=== PATIENT | female | born 1950 | race Caucasian/White ===

== ENCOUNTER 2020-05-13 05:54 | Outpatient (REF) | payer MEDICARE, SELFPAY ==
[2020-05-13 07:22] LABS: Cholesterol 216 mg/dL; HDL Cholesterol 71 mg/dL; LDL Cholesterol Calculated 127 mg/dl; Triglycerides 94 mg/dL
== END 2020-05-13 05:55 | disposition home or self-care (01) ==
LOC: HO.LAB 05:54
PROVIDERS: PCP Internal Medicine; Visit Provider Internal Medicine
DX: E78.5 Hyperlipidemia, unspecified (principal)
CPT/HCPCS: 80061

== ENCOUNTER 2020-10-21 05:57 | Outpatient (REF) | payer MEDICARE, SELFPAY ==
[2020-10-21 07:26] LABS: Alanine Aminotransferase 19 U/L (0-31); Albumin Level 3.9 g/dL (3.5-5.0); Alkaline Phosphatase 52 U/L (39-117); Anion Gap 14 (12-20); Aspartate Amino Transferase 18 U/L (5-31); Bilirubin Total 0.5 mg/dL (0.0-1.0); Blood Urea Nitrogen 26 mg/dL (9-16); Carbon Dioxide 24 mmol/L (22-29); Chloride 110 mmol/L (96-108); Cholesterol 221 mg/dL; Estimated Glomerular Filt Rate 38; Glucose Fasting 99 mg/dL (60-99); HDL Cholesterol 60 mg/dL; LDL Cholesterol Calculated 136 mg/dl; Potassium 4.7 mmol/L (3.3-5.1); Sodium 143 mmol/L (135-145); Triglycerides 128 mg/dL
== END 2020-10-21 05:58 | disposition home or self-care (01) ==
LOC: HO.LAB 05:57
PROVIDERS: PCP Internal Medicine; Visit Provider Internal Medicine
DX: E11.9 Type 2 diabetes mellitus without complications (principal)
CPT/HCPCS: 36415; 80053; 80061

== ENCOUNTER 2021-01-27 06:08 | Outpatient (REF) | payer MEDICARE, SELFPAY ==
[2021-01-27 07:29] LABS: Cholesterol 217 mg/dL; HDL Cholesterol 67 mg/dL; LDL Cholesterol Calculated 133 mg/dl; Triglycerides 85 mg/dL
== END 2021-01-27 06:09 | disposition home or self-care (01) ==
LOC: HO.LAB 06:08
PROVIDERS: PCP Internal Medicine; Visit Provider Internal Medicine
DX: E11.9 Type 2 diabetes mellitus without complications (principal)
CPT/HCPCS: 36415; 80061

== ENCOUNTER 2021-03-26 07:59 | Outpatient (REF) | payer MEDICARE, SELFPAY ==
--- NOTE | ~2021-03-26 | MM_ITS ---
EXAMINATION: MM SCREENING DIGITAL BREAST TOMOSYNTHESIS, BILATERAL CLINICAL INFORMATION: Screening. Asymptomatic. The lifetime risk of breast cancer based on the Tyrer-Cuzick Model is 3%. COMPARISON: Mammography: 03/15/2019, 02/27/2018, 10/25/2016 TECHNIQUE: Digital breast tomosynthesis is performed in both the craniocaudal and mediolateral oblique views along with computer-aided detection (CAD). Synthesized 2D images are generated from the tomosynthesis. FINDINGS: There are scattered areas of fibroglandular density (ACR BI-RADS breast composition Category b). There are no significant masses, abnormal calcifications, or other abnormalities. Parenchymal pattern is similar to prior studies. No significant changes. MM/MM tomosynthesis screening BI IMPRESSION: No mammographic evidence of malignancy. ASSESSMENT: BI-RADS 1: Negative RECOMMENDATION: Routine annual mammography screening. This patient's information was entered into a reminder system with a target due date for their next mammogram.
--- NOTE | ~2021-03-26 | MM_ITS ---
EXAMINATION: BONE DENSITOMETRY CLINICAL INDICATION: Asymptomatic menopausal state. COMPARISON: None (current study represents initial baseline exam). TECHNIQUE: Using a [employer]App DXA System (software version: 13.1) manufactured by [employer], dual-energy x-ray absorptiometry was performed of the spine and left hip. The images are of good technical quality. Summary results are attached. FINDINGS: AP SPINE L1-L4: BMD 1.399 g/cm2, Z-score 2.7, T-score 1.8, normal. LEFT FEMUR, NECK: BMD 0.865 g/cm2, Z-score 0.0, T-score -1.2, osteopenia. LEFT FEMUR, TOTAL: BMD 0.893 g/cm2, Z-score 0.0, T-score -0.9, normal. IDENTIFIED RISK FACTORS: Menopause. HISTORY OF FRACTURE: None listed. MEDICATIONS: None listed. MM/XR DEXA axial skeleton IMPRESSION: 1. DIAGNOSIS: Osteopenia based on the lowest T-score value of -1.2 in the femoral neck applying World Health Organization criteria. 2. 10-YEAR FRACTURE RISK PREDICTION, FRAX: Major osteoporotic fracture (clinical spine, forearm, hip or shoulder) 9.5%. Hip fracture 1.3%. 3. Treatment Recommendations: NOF guidelines recommend consideration for treatment in postmenopausal women and men age 50 and older presenting with the following: -A hip or vertebral (clinical or morphometric) fracture. -T-score less than or equal to -2.5 at the femoral neck or spine after appropriate evaluation to exclude secondary causes. -Low bone mass at the hip or spine and a 10-year fracture probability by FRAX of greater than or equal to 3% for hip fracture or greater than or equal to 20% for major osteoporotic fracture based on the [place] adapted WHO algorithm. 4. Other Recommendations: All treatment decisions require clinical judgment and consideration of individual patient factors, including patient preferences, comorbidities, previous drug use, risk factors not captured in the FRAX model (e.g. frailty, falls, vitamin D deficiency, increased bone turnover, interval significant decline in bone density) and possible under or overestimation of fracture risk by FRAX. Additional medical evaluation for secondary cause of low bone mineral density may be appropriate. FUTURE SCAN RECOMMENDATION: People with diagnosed cases of osteoporosis or at high risk for fracture should have regular bone mineral density tests. For patients eligible for Medicare, routine testing is allowed once every 2 years. The testing frequency can be increased to one year for patients who have rapidly progressing disease, those who are receiving or discontinuing medical therapy to restore bone mass, or have additional risk factors.
== END 2021-03-26 08:00 | disposition home or self-care (01) ==
LOC: HO.MAMMO 07:59
PROVIDERS: PCP Internal Medicine; Visit Provider Nurse Practitioner Family
DX: Z12.31 Encounter for screening mammogram for malignant neoplasm of breast (principal); Z13.820 Encounter for screening for osteoporosis; M85.80 Other specified disorders of bone density and structure, unspecified site; Z78.0 Asymptomatic menopausal state
CPT/HCPCS: 77063; 77067; 77080

== ENCOUNTER 2021-04-21 05:56 | Outpatient (REF) | payer MEDICARE, SELFPAY ==
[2021-04-21 07:39] LABS: Cholesterol 216 mg/dL; HDL Cholesterol 69 mg/dL; LDL Cholesterol Calculated 129 mg/dl; Triglycerides 90 mg/dL
== END 2021-04-21 05:57 | disposition home or self-care (01) ==
LOC: HO.LAB 05:56
PROVIDERS: PCP Internal Medicine; Visit Provider Nurse Practitioner Family
DX: E78.5 Hyperlipidemia, unspecified (principal)
CPT/HCPCS: 36415; 80061

== ENCOUNTER 2021-05-01 11:52 | Outpatient (REF) | payer MEDICARE, SELFPAY | END 2021-05-01 11:53 | disposition home or self-care (01) | LOC: HO.LNP 11:52 | PROVIDERS: Visit Provider Physician Assistant Medical | DX: N39.0 Urinary tract infection, site not specified (principal) | CPT/HCPCS: 87086 ==

== ENCOUNTER 2021-05-10 05:45 | Emergency (ER) | payer MEDICARE, SELFPAY ==
--- NOTE | ~2021-05-10 | CT_ITS ---
EXAMINATION: CT ABDOMEN AND PELVIS WITHOUT CONTRAST CLINICAL INFORMATION: 71-year-old female with flank pain COMPARISON: None TECHNIQUE: Multidetector volumetric imaging was performed from the superior aspect of the liver through the pubic symphysis. Sagittal and coronal reformatted images were obtained on the technologist's workstation. This CT examination was performed using dose optimization techniques as appropriate, variously including the following: *Automated exposure control *Adjustment of mA and/or kV according to patient size (this includes techniques or standardized protocols for targeted exams where dose is matched to indication/reason for exam; i.e. extremities or head) *Use of iterative reconstruction technique DLP: 644 mGy-cm FINDINGS: Visualized lung bases demonstrate prominent emphysematous changes with likely superimposed interstitial lung disease. The liver is normal in size but demonstrates diffusely decreased attenuation. The gallbladder is normal in appearance. The pancreas, spleen and adrenal glands are unremarkable. The right kidney appears mildly atrophic compared to the left kidney. No renal calculi or hydronephrosis appreciated bilaterally. Small to moderate sized hiatal hernia. Normal caliber loops of small and large bowel. Moderate colonic diverticulosis without CT evidence to suggest active diverticulitis. Normal appendix. Normal caliber abdominal aorta which demonstrates moderate atherosclerotic disease. No retroperitoneal lymphadenopathy. The bladder is normal in appearance. Unremarkable CT appearance of the uterus. No gross free pelvic fluid. No inguinal lymphadenopathy. Moderate diffuse degenerative changes of the spine. CT/CT abdomen pelvis wo con IMPRESSION: 1. No renal calculi or hydronephrosis of either kidney. 2. Diffusely decreased liver attenuation suggesting hepatic steatosis. Correlation with liver enzymes recommended. 3. Small to moderate sized hiatal hernia. 4. Colonic diverticulosis. 5. Lung bases demonstrate emphysematous changes with likely superimposed interstitial lung disease.
[2021-05-10 05:54] VITALS: BP 143/70; PULSE 99; RESP 18; TEMP 36.4; O2SAT 99; BMI 28.0
--- NOTE | 2021-05-10 06:19 | ED.FEMALEGU ---
HPI - Female Genitourinary General Chief complaint: Urogenital-Female Stated complaint: bladder pain Time Seen by Provider: 05/10/21 06:19 Source: patient Mode of arrival: ambulatory History of Present Illness HPI Narrative: This is a 71-year-old female who was evaluated last week for urinary symptoms and treated at that time with cephalexin and patient states she completed the entire course. She states that although the burning and itching decreased she still has urinary frequency with ?bladder discomfort?. She denies any nausea, vomiting, fever, chills. Patient does states that the burning appears to be at the end of urination and that she did have associated itching which has remained although decreased. Related Data Home Medications Medication Instructions Recorded Confirmed esomeprazole magnesium 20 mg 20 mg PO DAILY 05/28/20 05/08/21 capsule,delayed release (Nexium 24HR) Previous Rx's Medication Instructions Recorded fenofibrate 54 mg tablet 54 mg PO DAILY #90 tab 11/25/20 lisinopril 20 mg tablet 20 mg PO DAILY #90 tab 11/25/20 cephalexin 500 mg capsule 500 mg PO BID 7 Days #14 cap 05/01/21 Allergies Allergy/AdvReac Type Severity Reaction Status Date / Time Ttyvjcc-LVH-KzG Reductase Allergy Unknown myalgia Verified 05/08/21 08:18 Inhibitor [Lkhunfc-Dmj-Ori Reductase Inhibitor] Review of Systems Review of Systems: Pertinent positives and negatives as stated in HPI 10 point review of systems is otherwise negative. [facility] Past Medical History Source: nursing notes reviewed Medical History Hyperlipidemia Hypertension Post-menopausal Surgical History History of inguinal hernia repair Family History Family History Father CAD (coronary artery disease) Past heart attack Substance use disorder Mother Diabetes Sister Mitral valve prolapse Substance use disorder Social History Social History Alcohol intake: never Patient Tobacco Use Status: Former Tobacco user Quit Date: 1990 Use of substances other than those prescribed or required for medical reasons: No Advance Directives: No Advance Directives Information Provided: Yes Physical Exam Vital Signs: Vital Signs: Last Vital Signs Temp 97.6 F 05/10/21 05:54 Pulse 97 05/10/21 06:24 Resp 16 05/10/21 06:24 BP 145/67 H 05/10/21 06:24 Pulse Ox 97 05/10/21 06:24 Body Mass Index 28.0 VITAL SIGNS: Reviewed. GENERAL: Well developed, well nourished, in no acute distress. HEAD: Normocephalic/atraumatic EYES: PERRLA, EOMI OROPHARYNX: no oral lesions noted, posterior pharynx clear LUNGS: Normal breath sounds. SpO2<99> CARDIOVASCULAR: Regular rate and rhythm without noted murmurs ABDOMEN: Soft, non-tender, non-distended with bowel sounds, no CVA tenderness NEUROLOGIC: Alert and oriented x 4. Course Course Course Narrative: 71-year-old female with history and clinical presentation suggestive vaginal candidiasis, and less likely pyelonephritis/renal colic. Patient declined combination analgesics as she states the pain is ?not that bad?. Signed out to Dr Estrada: f/u UA, CT scan Discharge Plan Discharge Clinical Impression: Dysuria Patient Disposition: Home, Self-Care Instructions: Dysuria (ED) Additional Instructions: Follow-up with your primary care provider on Tuesday morning. Return to the ER for acute worsening of symptoms. Prescriptions: No Action fenofibrate 54 mg tablet 54 mg PO DAILY Qty: 90 RF: 8 lisinopril 20 mg tablet 20 mg PO DAILY Qty: 90 RF: 8 esomeprazole magnesium [Nexium 24HR] 20 mg capsule,delayed release(DR/EC) 20 mg PO DAILY RF: 0 cephalexin 500 mg capsule 500 mg PO BID 7 Days Qty: 14 RF: 0 Referrals: Tate Victor MD [Primary Care Provider] - 2 days
[2021-05-10 06:24] VITALS: BP 145/67; PULSE 97; RESP 16; O2SAT 97
[2021-05-10] MEDS: Fluconazole 150 MG TABLET PO (07:19)
[2021-05-10 07:23] LABS: Appearance Urine CLEAR; Color Urine YELLOW; Glucose Urine UA NEG (NEG); Leukocyte Esterase Urine NEG (NEG); Nitrite Urine NEG (NEG); Urine Blood NEG (NEG); Urine Ketones NEG (NEG); Urine Protein NEG (NEG-TRACE)
== END 2021-05-10 08:39 | disposition home or self-care (01) ==
PROVIDERS: Student in an Organized Health Care Education/Training Program; Emergency Provider Student in an Organized Health Care Education/Training Program; PCP Internal Medicine
DX: R30.0 Dysuria (principal); I10 Essential (primary) hypertension
CPT/HCPCS: 74176; 81003; 99284

== ENCOUNTER 2021-10-21 05:49 | Outpatient (REF) | payer MEDICARE, SELFPAY ==
[2021-10-21 06:14] LABS: MANUAL DIFF FLAG NO
[2021-10-21 07:36] LABS: Basophils Absolute Auto 0.1 X10*3/uL (0.0-0.2); Eosinophils Absolute Auto 0.1 X10*3/uL (0.0-0.4); Eosinophils Percent Auto 2.6 % (0-4); Hematocrit 43.1 % (37.0-47.0); Hemoglobin 13.9 g/dl (12.0-16.0); Imm Gran Abs Auto 0.01 X10*3/uL (0.00-0.03); Imm Gran Pct Auto 0.2 % (0.0-0.4); Lymphocytes Absolute Auto 2.3 X10*3/uL (1.2-4.9); Lymphocytes Percent Auto 44.7 % (20-40); Mean Corpuscular HGB Conc 32.3 g/dl (31.0-35.0); Mean Corpuscular Volume 99.3 fL (80.0-98.0); Monocytes Absolute Auto 0.5 X10*3/uL (0.1-1.2); Monocytes Percent Auto 9.1 % (2-11); Neutrophils Absolute Auto 2.2 x10*3/uL (2.0-8.3); Neutrophils Percent Auto 42.4 % (45-73); Platelet Count 195 X10*3/uL (160-400); Red Blood Count 4.34 X10*6/uL (4.20-5.50); Red Cell Distribution Width 12.9 % (11.0-16.0); White Blood Count 5.1 X10*3/uL (4.8-10.8)
[2021-10-21 08:06] LABS: Alanine Aminotransferase 19 U/L (0-31); Albumin Level 4.1 g/dL (3.5-5.0); Alkaline Phosphatase 56 U/L (39-117); Anion Gap 11 (12-20); Aspartate Amino Transferase 21 U/L (5-31); Bilirubin Total 0.5 mg/dL (0.0-1.0); Blood Urea Nitrogen 24 mg/dL (9-16); Calcium 9.8 mg/dL (8.4-10.2); Carbon Dioxide 26 mmol/L (22-29); Chloride 106 mmol/L (96-108); Cholesterol 236 mg/dL; Estimated Glomerular Filt Rate 33; Glucose Fasting 99 mg/dL (60-99); HDL Cholesterol 63 mg/dL; LDL Cholesterol Calculated 153 mg/dl; Potassium 5.1 mmol/L (3.3-5.1); Sodium 138 mmol/L (135-145); Total Protein 7.4 g/dL (6.5-8.0); Triglycerides 104 mg/dL
[2021-10-21 08:18] LABS: Thyroid Stimulating Hormone 6.72 uIU/mL (0.32-4.0)
== END 2021-10-21 05:50 | disposition home or self-care (01) ==
LOC: HO.LAB 05:49
PROVIDERS: PCP Internal Medicine; Visit Provider Internal Medicine
DX: Z00.00 Encounter for general adult medical examination without abnormal findings (principal); E11.9 Type 2 diabetes mellitus without complications; E03.9 Hypothyroidism, unspecified
CPT/HCPCS: 36415; 80053; 80061; 84443; 85025

== ENCOUNTER 2021-11-10 05:57 | Outpatient (REF) | payer MEDICARE, SELFPAY ==
[2021-11-10 08:14] LABS: Thyroid Stimulating Hormone 6.16 uIU/mL (0.32-4.0)
== END 2021-11-10 05:58 | disposition home or self-care (01) ==
LOC: HO.LAB 05:57
PROVIDERS: PCP Internal Medicine; Visit Provider Internal Medicine
DX: E03.9 Hypothyroidism, unspecified (principal)
CPT/HCPCS: 36415; 84443

== ENCOUNTER 2022-01-26 05:52 | Outpatient (REF) | payer MEDICARE, SELFPAY ==
[2022-01-26 08:08] LABS: Thyroid Stimulating Hormone 0.15 uIU/mL (0.32-4.0)
== END 2022-01-26 05:53 | disposition home or self-care (01) ==
LOC: HO.LAB 05:52
PROVIDERS: PCP Internal Medicine; Visit Provider Internal Medicine
DX: E03.9 Hypothyroidism, unspecified (principal)
CPT/HCPCS: 36415; 84443

== ENCOUNTER 2022-02-04 05:58 | Outpatient (REF) | payer MEDICARE, SELFPAY ==
--- NOTE | ~2022-02-04 | XR_ITS ---
EXAMINATION: XR CERVICAL SPINE CLINICAL INFORMATION: M54.2 - Cervicalgia COMPARISON: Cervical radiographs 01/19/2016 TECHNIQUE: Cervical spine is imaged in 4 views. FINDINGS: Vertebral bodies are normal in height and there is normal cervical lordosis. No vertebral compression, destructive process, or prevertebral soft tissue swelling. The odontoid appears intact. No cervical rib. Degenerative changes are similar to prior exam. There are degenerative changes between anterior arch C1 and the dens. There is again borderline retrolisthesis C3 on C4 with anterior and posterior spurring. Anterior spurring at C4-C5. There are prominent degenerative disc changes again noted at C5-C6 and C6-C7 with disc narrowing and anterior and posterior spurring. XR/XR cervical spine 2V IMPRESSION: -Prominent degenerative disc changes C5-C6 and C6-C7. -Borderline retrolisthesis C3-C4. -No vertebral compression or destructive process.
== END 2022-02-04 05:59 | disposition home or self-care (01) ==
LOC: HO.XRAY 05:58
PROVIDERS: PCP Internal Medicine; Visit Provider Internal Medicine
DX: M54.2 Cervicalgia (principal)
CPT/HCPCS: 72040

== ENCOUNTER 2022-03-31 07:36 | Outpatient (REF) | payer MEDICARE, SELFPAY ==
--- NOTE | ~2022-03-31 | MM_ITS ---
EXAMINATION: MM SCREENING DIGITAL BREAST TOMOSYNTHESIS, BILATERAL CLINICAL INFORMATION: Screening. Asymptomatic. The lifetime risk of breast cancer based on the Tyrer-Cuzick Model is 2%. COMPARISON: Mammography: 03/26/2021, 03/15/2019, 02/27/2018 TECHNIQUE: Digital breast tomosynthesis is performed in both the craniocaudal and mediolateral oblique views along with computer-aided detection (CAD). Synthesized 2D images are generated from the tomosynthesis. FINDINGS: There are scattered areas of fibroglandular density (ACR BI-RADS breast composition Category b). There are no significant masses, abnormal calcifications, or other abnormalities. No developing density or architectural abnormality. Parenchymal pattern is similar to prior studies. MM/MM tomosynthesis screening BI IMPRESSION: No mammographic evidence of malignancy. ASSESSMENT: BI-RADS 1: Negative RECOMMENDATION: Routine annual mammography screening. This patient's information was entered into a reminder system with a target due date for their next mammogram.
== END 2022-03-31 07:37 | disposition home or self-care (01) ==
LOC: HO.MAMMO 07:36
PROVIDERS: PCP Internal Medicine; Visit Provider Internal Medicine
DX: Z12.31 Encounter for screening mammogram for malignant neoplasm of breast (principal)
CPT/HCPCS: 77063; 77067

== ENCOUNTER 2022-05-11 05:55 | Outpatient (REF) | payer MEDICARE, SELFPAY ==
[2022-05-11 08:15] LABS: Cholesterol 216 mg/dL; HDL Cholesterol 68 mg/dL; LDL Cholesterol Calculated 128 mg/dl; Triglycerides 103 mg/dL
[2022-05-11 08:36] LABS: Thyroid Stimulating Hormone 0.25 uIU/mL (0.32-4.0)
== END 2022-05-11 05:56 | disposition home or self-care (01) ==
LOC: HO.LAB 05:55
PROVIDERS: PCP Internal Medicine; Visit Provider Internal Medicine
DX: E03.9 Hypothyroidism, unspecified (principal); E78.5 Hyperlipidemia, unspecified
CPT/HCPCS: 36415; 80061; 84443

== ENCOUNTER 2022-10-07 05:57 | Outpatient (REF) | payer MEDICARE, SELFPAY ==
[2022-10-07 08:03] LABS: Cholesterol 215 mg/dL; HDL Cholesterol 62 mg/dL; LDL Cholesterol Calculated 131 mg/dl; Triglycerides 110 mg/dL
[2022-10-07 09:11] LABS: Thyroid Stimulating Hormone 0.23 uIU/mL (0.32-4.0)
== END 2022-10-07 05:58 | disposition home or self-care (01) ==
LOC: HO.LAB 05:57
PROVIDERS: PCP Internal Medicine; Visit Provider Internal Medicine
DX: E78.5 Hyperlipidemia, unspecified (principal); E03.9 Hypothyroidism, unspecified
CPT/HCPCS: 36415; 80061; 84443

== ENCOUNTER 2022-10-27 11:34 | Outpatient (REF) | payer MEDICARE, SELFPAY ==
--- NOTE | ~2022-10-27 | US_ITS ---
EXAMINATION: US VENOUS ULTRASOUND WITH DOPPLER LOWER EXTREMITY, LEFT CLINICAL INFORMATION: Left leg edema. COMPARISON: None available. TECHNIQUE: Ultrasound of the deep veins is performed from the hip to the calf with compression sonography and color and pulse Doppler assessment. Spectral analysis with color-flow imaging is performed. FINDINGS: There is DVT involving the entire left lower extremity beginning in the peroneal veins and posterior tibial veins extending up through the popliteal vein and into the femoral vein and common femoral vein. The GSV is free of thrombus. The profunda femoris vein is free of thrombus. US/US venous duplex LE IMPRESSION: Extensive left lower extremity DVT as described above. This critical result was discussed with Dr. Tate Victor M.D. at 12:04 PM and it was ascertained that the content and urgency of the report was understood at the time of direct communication. Patient was sent directly to the emergency room.
== END 2022-10-27 11:35 | disposition home or self-care (01) ==
LOC: HO.US 11:34
PROVIDERS: PCP Internal Medicine; Visit Provider Internal Medicine
DX: R60.0 Localized edema (principal)
CPT/HCPCS: 93971

== ENCOUNTER 2022-10-27 12:12 | Emergency (ER) | payer MEDICARE, SELFPAY ==
[2022-10-27 12:49] VITALS: BP 182/86; PULSE 76; RESP 18; TEMP 36.9; O2SAT 98; BMI 26.4
[2022-10-27 12:52] LABS: MANUAL DIFF FLAG NO
[2022-10-27 12:55] LABS: Basophils Absolute Auto 0.1 X10*3/uL (0.0-0.2); Basophils Percent Auto 1.1 % (0-2); Eosinophils Absolute Auto 0.2 X10*3/uL (0.0-0.4); Eosinophils Percent Auto 2.7 % (0-4); Hematocrit 41.6 % (37.0-47.0); Hemoglobin 13.5 g/dl (12.0-16.0); Imm Gran Abs Auto 0.01 X10*3/uL (0.00-0.03); Imm Gran Pct Auto 0.2 % (0.0-0.4); Lymphocytes Absolute Auto 1.6 X10*3/uL (1.2-4.9); Lymphocytes Percent Auto 28.2 % (20-40); Mean Corpuscular HGB Conc 32.5 g/dl (31.0-35.0); Mean Corpuscular Hemoglobin 30.6 pg (27.0-33.0); Mean Corpuscular Volume 94.3 fL (80.0-98.0); Mean Platelet Volume 9.4 fL (9.4-12.3); Monocytes Absolute Auto 0.4 X10*3/uL (0.1-1.2); Monocytes Percent Auto 7.4 % (2-11); Neutrophils Absolute Auto 3.3 x10*3/uL (2.0-8.3); Neutrophils Percent Auto 60.4 % (45-73); Platelet Count 241 X10*3/uL (160-400); Red Blood Count 4.41 X10*6/uL (4.20-5.50); Red Cell Distribution Width 12.5 % (11.0-16.0); White Blood Count 5.5 X10*3/uL (4.8-10.8)
[2022-10-27 13:13] LABS: Alanine Aminotransferase 11 U/L (0-31); Albumin Level 3.8 g/dL (3.5-5.0); Alkaline Phosphatase 62 U/L (39-117); Anion Gap 15 (12-20); Aspartate Amino Transferase 16 U/L (5-31); Bilirubin Direct 0.2 mg/dL (0.0-0.5); Bilirubin Total 0.5 mg/dL (0.0-1.0); Blood Urea Nitrogen 21 mg/dL (9-16); Calcium 9.3 mg/dL (8.4-10.2); Carbon Dioxide 25 mmol/L (22-29); Chloride 105 mmol/L (96-108); Creatinine Clr Calc Pharmacy 44.9; Estimated Glomerular Filt Rate 43; Glucose Random 92 mg/dL (60-115); Magnesium 2.1 mg/dL (1.6-2.6); Sodium 140 mmol/L (135-145)
--- NOTE | 2022-10-27 13:24 | ED.GENADULT ---
HPI - General Adult General Chief complaint: General Medical Stated complaint: positive DVT Time Seen by Provider: 10/27/22 13:31 Source: patient Mode of arrival: ambulatory Limitations: no limitations History of Present Illness HPI narrative: 72 yo female presents to the ER for evaluation of left lower extremity swelling for the last 10 days. She saw her PCP today who ordered a left leg doppler which showed extensive LLE DVT. She was sent to the ER. She denies history of DVT or PE in the past. No history of hypercoagulation disorders. No recent long car trips or flights. She is fairly active at home. She denies any shortness of breath or chest pain. She is otherwise feeling well. She states when she walks the left leg feels tight. MD complaint: LLE swelling, +DVT Onset (ago): day(s) (10) Location: left and lower extremity Radiation: proximal Severity: moderate Quality: aching Pain Consistency: intermittent Relieving factors: rest Exacerbating factors: movement Associated symptoms: denies other symptoms Treatments prior to arrival: none Related Data Home Medications Medication Instructions Recorded Confirmed esomeprazole magnesium 20 mg 20 mg PO DAILY 05/28/20 10/27/22 capsule,delayed release (Nexium 24HR) Previous Rx's Medication Instructions Recorded fenofibrate 54 mg tablet 54 mg PO DAILY #90 tabs 02/05/22 lisinopril 20 mg tablet 20 mg PO DAILY #90 tabs 02/05/22 levothyroxine 75 mcg tablet 75 mcg PO DAILY #90 tabs 04/07/22 naproxen 500 mg tablet (Naprosyn) 500 mg PO BID PRN pain #60 tabs 04/27/22 apixaban 5 mg (74 tabs) tablets in 5 mg PO BID #74 ea 10/27/22 a dose pack Allergies Allergy/AdvReac Type Severity Reaction Status Date / Time Bwdjntp-LJG-VaQ Reductase Allergy Unknown myalgia Verified 10/27/22 10:50 Inhibitor [Mlfdtwf-Iqc-Qzd Reductase Inhibitor] Review of Systems Review of Systems: Yes all other systems are reviewed and are negative [facility] Past Medical History Medical History Hyperlipidemia Hypertension Post-menopausal Surgical History History of inguinal hernia repair Family History Family History Father CAD (coronary artery disease) Past heart attack Substance use disorder Mother Diabetes Sister Mitral valve prolapse Substance use disorder Social History Social History Housing: House Alcohol intake: never Patient Tobacco Use Status: Former Tobacco user Quit Date: 1990 e-Cigarette/Vaping Use: Never Used Second Hand Smoke Exposure: No Advance Directives: Yes Advance Directives Information Provided: No Advance Directives on File: No service: No Current occupational status: retired Cognitive needs: No Hearing needs: No Vision needs: Yes Physical Exam ED Vital Signs: Vital Signs - 24 hr 10/27/22 12:49 Temperature 98.4 F Pulse Rate 76 Respiratory Rate 18 Blood Pressure 182/86 H Pulse Oximetry 98 Oxygen Delivery Method Room Air BMI result Body Mass Index 26.4 Appearance: Alert. Oriented X3. No acute distress. HEENT: normal inspection CVS: Normal heart rate and rhythm. Pulses normal. Respiratory: No respiratory distress. Lungs CTAB Skin: Skin warm and dry. Normal skin color. Normal skin turgor. No rashes. Extremities: 2+ lower extremity edema of the left lower leg, mild calf tenderness. no proximal swelling. foot is warm and well perfused, 2+ DP/PD pulses Neuro: Oriented X 3. No motor deficit. No sensory deficit. Steady gait Course Course Course Narrative: 70 y/o female presenting from her PCP office for +LE doppler. She has had asymmetrical LLE edema. LE doppler from today: DVT involving the entire left lower extremity beginning in the peroneal veins and posterior tibial veins extending up through the popliteal vein and into the femoral vein and common femoral vein. The GSV is free of thrombus. The profunda femoris vein is free of thrombus. Medications Administered Discontinued Medications Generic Name Dose Route Start Last Admin Trade Name Freq PRN Reason Stop Dose Admin Apixaban 10 mg 10/27/22 13:38 10/27/22 13:44 Apixaban 5 Mg Tablet PO 10/27/22 13:39 10 mg ONCE ONE Administration Medical Decision Making Medical Decision Making [facility] Narrative: 72 yo female presenting with +LLE DVT. Had slightly abnormal renal function on last years labs so repeats were done today showing normal renal function. No need for dose adjustments. Will start Eliquis - dose pack ordered and explained to the patient. Patient counseled on diagnosis, management and return precautions. She is stable for d/c home on Eliquis with follow up with her PCP. She agrees with plan. patient given pharmacy discount cards. 1st dose of Eliquis given here. Differential Diagnosis Differential Diagnoses: The differential diagnosis associated with the presentation includes LE DVT, no clinical symptoms of PE, no evidence of arterial clot Lab Data MDM Lab Attestation statement: I reviewed the patient's lab results. normal renal function, platelets and coags. 10/27/22 12:44 10/27/22 12:44 Labs: Lab Results 10/27/22 10/27/22 10/27/22 Range/Units 12:44 12:44 12:44 WBC 5.5 (4.8-10.8) X10*3/uL RBC 4.41 (4.20-5.50) X10*6/uL Hgb 13.5 (12.0-16.0) g/dl Hct 41.6 (37.0-47.0) % MCV 94.3 (80.0-98.0) fL MCH 30.6 (27.0-33.0) pg MCHC 32.5 (31.0-35.0) g/dl RDW 12.5 (11.0-16.0) % Plt Count 241 (160-400) X10*3/uL MPV 9.4 (9.4-12.3) fL Immature Gran % (Auto) 0.2 (0.0-0.4) % Neut % (Auto) 60.4 (45-73) % Lymph % (Auto) 28.2 (20-40) % [place] % (Auto) 7.4 (2-11) % Eos % (Auto) 2.7 (0-4) % Baso % (Auto) 1.1 (0-2) % Lymph # (Auto) 1.6 (1.2-4.9) X10*3/uL [place] # (Auto) 0.4 (0.1-1.2) X10*3/uL Eos # (Auto) 0.2 (0.0-0.4) X10*3/uL Baso # (Auto) 0.1 (0.0-0.2) X10*3/uL Abs Immat Gran (auto) 0.01 (0.00-0.03) X10*3/uL Absolute Neuts (auto) 3.3 (2.0-8.3) x10*3/uL Absolute Nucleated RBC 0.000 (0.0-0.012) X10*3/uL Nucleated RBC % (auto) 0.0 (0.0-0.2) /100WBC PT 11.0 (10.0-13.1) SEC INR 1.0 (0.9-1.1) APTT 29.0 (26.0-36.4) SEC Sodium 140 (135-145) mmol/L Potassium 5.0 (3.3-5.1) mmol/L Chloride 105 (96-108) mmol/L Carbon Dioxide 25 (22-29) mmol/L Anion Gap 15 (12-20) BUN 21 H (9-16) mg/dL Creatinine 1.23 (0.5-1.4) mg/dL Estim Creat Clear Calc 44.9 Estimated GFR 43 Random Glucose 92 (60-115) mg/dL Calcium 9.3 (8.4-10.2) mg/dL Magnesium 2.1 (1.6-2.6) mg/dL Total Bilirubin 0.5 (0.0-1.0) mg/dL Direct Bilirubin 0.2 (0.0-0.5) mg/dL AST 16 (5-31) U/L ALT 11 (0-31) U/L Alkaline Phosphatase 62 (39-117) U/L Total Protein 7.0 (6.5-8.0) g/dL Albumin 3.8 (3.5-5.0) g/dL Independent Interpretation I performed an independent interpretation of an: Ultrasound Interpretation: clot apprecaited on U/S - agree with radiologist reading Radiology Impression Discussion of test interpretation with radiology: I have reviewed the radiologist's reading. Radiologist Impression: DVT involving the entire left lower extremity beginning in the peroneal veins and posterior tibial veins extending up through the popliteal vein and into the femoral vein and common femoral vein. The GSV is free of thrombus. The profunda femoris vein is free of thrombus. External Record Review External record reviewed: Office record, Prior outpatient labs and Prior outpatient radiology Prescription Management I considered prescription management with: Other (NOAC) Discharge Plan Discharge Clinical Impression: DVT, lower extremity Patient Disposition: Home, Self-Care Instructions: Apixaban (By mouth), Deep Vein Thrombosis (ED) Additional Instructions: You have a blood clot in your left leg. Take the prescribed blood thinner medication as directed. You were given 1st dose today in the ER. Take the next dose before bed if you can get it today. Avoid NSAIDS like Motrin, Aleve or iburpofen while you are on Eliquis. Follow up with your doctor for refills. You will need to be on this medication for months. If you develop new or worsening symptoms call 911 or come back to the ER for further evaluation. Your doppler results: DVT involving the entire left lower extremity beginning in the peroneal veins and posterior tibial veins extending up through the popliteal vein and into the femoral vein and common femoral vein. The GSV is free of thrombus. The profunda femoris vein is free of thrombus . Prescriptions: New apixaban 5 mg (74 tabs) tablets,dose pack 5 mg PO BID Qty: 74 0RF Rx Instructions: take 2 tabs 2 times per day x1 week then 1 tab two times per day No Action lisinopril 20 mg tablet 20 mg PO DAILY Qty: 90 8RF fenofibrate 54 mg tablet 54 mg PO DAILY Qty: 90 8RF levothyroxine 75 mcg tablet 75 mcg PO DAILY Qty: 90 7RF naproxen [Naprosyn] 500 mg tablet 500 mg PO BID PRN (Reason: pain) Qty: 60 4RF esomeprazole magnesium [Nexium 24HR] 20 mg capsule,delayed release(DR/EC) 20 mg PO DAILY Interventions: ED Discharge Assessment Last Done: 10/27/22 13:51 Discharge Date/Time: 10/27/22 13:51
[2022-10-27] MEDS: Apixaban 5 MG TABLET 10 MG PO (13:44)
== END 2022-10-27 13:51 | disposition home or self-care (01) ==
PROVIDERS: Physician Assistant; Emergency Provider Emergency Medicine Emergency Medical Services; PCP Internal Medicine
DX: I82.402 Acute embolism and thrombosis of unspecified deep veins of left lower extremity (principal); M79.662 Pain in left lower leg; R60.0 Localized edema
CPT/HCPCS: 36415; 80048; 80076; 83735; 85025; 85610; 85730; 99282; 99283

== ENCOUNTER 2023-01-21 05:59 | Outpatient (REF) | payer MEDICARE, SELFPAY ==
[2023-01-21 06:07] LABS: MANUAL DIFF FLAG NO
[2023-01-21 07:33] LABS: Basophils Absolute Auto 0.1 X10*3/uL (0.0-0.2); Basophils Percent Auto 1.1 % (0-2); Eosinophils Absolute Auto 0.2 X10*3/uL (0.0-0.4); Eosinophils Percent Auto 3.2 % (0-4); Hematocrit 43.9 % (37.0-47.0); Hemoglobin 14.1 g/dl (12.0-16.0); Lymphocytes Absolute Auto 1.9 X10*3/uL (1.2-4.9); Mean Corpuscular HGB Conc 32.1 g/dl (31.0-35.0); Mean Corpuscular Hemoglobin 30.1 pg (27.0-33.0); Mean Corpuscular Volume 93.8 fL (80.0-98.0); Mean Platelet Volume 10.6 fL (9.4-12.3); Monocytes Absolute Auto 0.5 X10*3/uL (0.1-1.2); Monocytes Percent Auto 9.7 % (2-11); Neutrophils Absolute Auto 2.1 x10*3/uL (2.0-8.3); Platelet Count 185 X10*3/uL (160-400); Red Blood Count 4.68 X10*6/uL (4.20-5.50); Red Cell Distribution Width 13.4 % (11.0-16.0); White Blood Count 4.7 X10*3/uL (4.8-10.8)
[2023-01-21 08:12] LABS: Alanine Aminotransferase 12 U/L (0-31); Albumin Level 3.8 g/dL (3.5-5.0); Alkaline Phosphatase 59 U/L (39-117); Anion Gap 14 (12-20); Aspartate Amino Transferase 19 U/L (5-31); Bilirubin Total 0.4 mg/dL (0.0-1.0); Blood Urea Nitrogen 22 mg/dL (9-16); Calcium 10.3 mg/dL (8.4-10.2); Carbon Dioxide 26 mmol/L (22-29); Chloride 106 mmol/L (96-108); Cholesterol 218 mg/dL; Estimated Glomerular Filt Rate 52; Glucose Fasting 97 mg/dL (60-99); HDL Cholesterol 71 mg/dL; LDL Cholesterol Calculated 134 mg/dl; Potassium 4.5 mmol/L (3.3-5.1); Sodium 141 mmol/L (135-145); Total Protein 7.5 g/dL (6.5-8.0); Triglycerides 67 mg/dL
[2023-01-21 08:18] LABS: Thyroid Stimulating Hormone 0.42 uIU/mL (0.32-4.0)
== END 2023-01-21 06:00 | disposition home or self-care (01) ==
LOC: HO.LAB 05:59
PROVIDERS: PCP Internal Medicine; Visit Provider Internal Medicine
DX: E03.9 Hypothyroidism, unspecified (principal); N28.9 Disorder of kidney and ureter, unspecified; E78.5 Hyperlipidemia, unspecified; D64.9 Anemia, unspecified
CPT/HCPCS: 36415; 80053; 80061; 84443; 85025

== ENCOUNTER 2023-01-31 11:11 | Outpatient (AMB) | payer MEDICARE, SELFPAY ==
--- NOTE | 2023-01-31 11:14 | MHC.PC.OV ---
Vital Signs 01/31/23 11:16 Height 5 ft 8 in Weight 175 lb 6 oz BMI 26.7 BP 150/70 H Blood Pressure Location Lt brachial Position Sitting Pulse 83 Pulse Source Pulse Oximeter Pulse Oximetry (%) 99 Oxygen Delivery Method Room Air Intake Visit Reasons: 3mth f/u Intake Note: Patient is here to follow up on Hypothyroidism, GERD, HTN, and Hyperlipidemia. Scientist Propagator Required: No Pan Puller: Not Required per policy Accompanied by: Self / Same As Patient Allergies Ixwurnb-KKD-JeM Reductase Inhibitor [Yoihrrw-Udz-Wlq Reductase Inhibitor] Allergy (Unknown, Verified 01/31/23 11:16) myalgia Medication List - Last Reconciled 01/31/23 by Tate Victor MD apixaban 5 mg PO BID esomeprazole magnesium (Nexium 24HR) 20 mg PO DAILY fenofibrate 54 mg PO DAILY levothyroxine 75 mcg PO DAILY lisinopril 20 mg PO DAILY Tobacco use date assessed: 11/29/22 Fall risk assessment: No Falls in past year Last assessed Fall Risk: 01/31/23 Dental Screening Dental Screen Date: 01/31/23 Did you have a dental visit in the last 12 months?: Yes Did you have a dental problem in the last 6 months where you did not have access to dental care?: No Was dental information given to patient?: Patient has dentist HPI 3mth f/u HPI Details hyperlip hypothyr oand DVT on rx; doing well PFSH Medical History Hyperlipidemia Hypertension Post-menopausal Surgical History History of inguinal hernia repair Family History Father CAD (coronary artery disease) Past heart attack Substance use disorder Mother Diabetes Sister Mitral valve prolapse Substance use disorder Social History Housing: House Alcohol intake: never Patient Tobacco Use Status: Former Tobacco user Quit Date: 1990 e-Cigarette/Vaping Use: Never Used Second Hand Smoke Exposure: No service: No Current occupational status: retired Cognitive needs: No Hearing needs: No Vision needs: Yes Questionnaire PHQ-9 Over the last 2 weeks, how often have you been bothered by any of the following problems? Depression Screening Interpretation: Negative Source: Developed by Drs. Harvinder Linton, Patrica Avilez, Jorge Dixon and colleagues, with an educational martha from [employer]. Thrive Questionnaire Date Thrive assessed: 10/27/22 Currently or been in a relationship where the following occur: no concerns reported LUCIA-7 AMB Questionnaire LUCIA-7 Date LUCIA - 7 assessed: 10/29/22 Source: Developed by Drs. Harvinder Linton, Patrica Avilez, Jorge Dixon and colleagues, with an educational martha from [employer]. Review of Systems Const Denies chills, Denies headache(s) and Denies weight loss ENT Denies headache(s) Card Denies chest pain, Denies syncope, Denies irregular heart rhythm and Denies dyspnea Resp Denies chest congestion, Denies cough and Denies dyspnea GI Denies abdominal pain, Denies change in stool character, Denies nausea and Denies vomiting Musc Denies deformity and Denies joint swelling Neuro Denies syncope and Denies headache(s) Physical exam (Primary Care) Vital Signs: Last Vital Signs Pulse 83 01/31/23 11:16 BP 150/70 H 01/31/23 11:16 Pulse Ox 99 01/31/23 11:16 Oxygen Delivery Method Room Air 01/31/23 11:16 BMI result Body Mass Index 26.7 Tobacco/Smoking Status: Tobacco use Status Tobacco use date assessed 11/29/22 01/31/23 11:20 Patient Tobacco Use Status Former Tobacco user 01/31/23 11:20 e-Cigarette/Vaping Use Never Used 01/31/23 11:20 Depression Screening Interpretation: Negative Thrive Assessment: Date of Thrive Assessment Date Thrive assessed 10/27/22 01/31/23 11:20 Currently or been in a relationship where the following occur: no concerns reported Const General: cooperative, healthy appearing and comfortable Resp Effort & Inspection: normal respiratory effort Auscultation: clear to auscultation bilaterally Percussion: percussion normal Cardio Jugular venous distension: no JVD Rate: regular rate Rhythm: regular rhythm GI Inspection: Yes normal to inspection Assessment and Plan Assessment & Plan (1) Venous thromboembolism: Code(s): I82.90 - Acute embolism and thrombosis of unspecified vein Plan: stable; same rx (2) Hypothyroidism: Code(s): E03.9 - Hypothyroidism, unspecified Plan: stable; same rx (3) Hyperlipidemia: Code(s): E78.5 - Hyperlipidemia, unspecified Qualifiers: Hyperlipidemia type: unspecified Qualified Code(s): E78.5 - Hyperlipidemia, unspecified Plan: stable; same rx Orders: Orders Lipid Panel Today E78.5 - Hyperlipidemia, unspecified Thyroid Stimulating Hormone Today E03.9 - Hypothyroidism, unspecified Coding Level of Care Code Est Pt Level 4 (03566) Diagnoses Venous thromboembolism I82.90 Hypothyroidism E03.9 Hyperlipidemia E78.5 Hyperlipidemia type: unspecified
[2023-01-31 11:16] VITALS: BP 150/70; PULSE 83; O2SAT 99; BMI 26.7
== END 2023-01-31 11:36 | disposition home or self-care (01) ==
PROVIDERS: Visit Provider Internal Medicine
DX: I82.90 Acute embolism and thrombosis of unspecified vein (principal); E03.9 Hypothyroidism, unspecified; E78.5 Hyperlipidemia, unspecified
CPT/HCPCS: 99214

== ENCOUNTER 2023-04-05 07:44 | Outpatient (REF) | payer MEDICARE, SELFPAY | END 2023-04-05 07:45 | disposition home or self-care (01) | LOC: HO.MAMMO 07:44 | PROVIDERS: Visit Provider Internal Medicine | DX: Z12.31 Encounter for screening mammogram for malignant neoplasm of breast (principal) | CPT/HCPCS: 77063; 77067 ==

== ENCOUNTER → 2023-04-05 08:00 | Outpatient (BNV) | payer MEDICARE, SELFPAY | PROVIDERS: Visit Provider Radiology Diagnostic Radiology | DX: Z12.31 Encounter for screening mammogram for malignant neoplasm of breast (principal) | CPT/HCPCS: 77063; 77067 ==

== ENCOUNTER 2023-04-13 10:57 | Outpatient (AMB) | payer MEDICARE, SELFPAY ==
[2023-04-13 11:10] VITALS: BP 138/80; PULSE 68; O2SAT 97; BMI 26.9
--- NOTE | 2023-04-13 11:10 | AM.OFFVISMDC ---
Intake Vital Signs 04/13/23 11:10 Height 5 ft 8 in Weight 177 lb BMI 26.9 BP 138/80 Blood Pressure Location Lt brachial Position Sitting Pulse 68 Pulse Source Pulse Oximeter Temp Source Skin Pulse Oximetry (%) 97 Oxygen Delivery Method Room Air Intake Visit Reasons: SA[facility] Intake Note: Patient is here for an Annual Wellness Visit. Chromium Plater Required: No Allergies Gmgyhwv-OQZ-UrL Reductase Inhibitor [Yrvkbwk-Bte-Bna Reductase Inhibitor] Allergy (Unknown, Verified 04/13/23 11:29) myalgia Medication List - Last Reconciled 04/13/23 by TIAN Elizondo apixaban 5 mg PO BID esomeprazole magnesium (Nexium 24HR) 20 mg PO DAILY fenofibrate 54 mg PO DAILY levothyroxine 75 mcg PO DAILY lisinopril 20 mg PO DAILY HPI SAWV HPI Details Patient is a 73-year-old female who presents today for subsequent wellness visit. Patient Dr. Victor. Today we discussed patient's need for tetanus vaccine, pneumonia vaccine, and bone density screening, patient has declined such vaccines and bone density screening. Mammogram was done about 1 week ago, results are pending. She did have a negative Cologuard 02/2021. [place] of care was reviewed with the patient and she was provided with a screening schedule. Patient has healthcare proxy and MOLST forms at home and she will provide office with copies. In addition, patient reports that she did home urine test and it shows UTI - she has leukocytes, no nitrites. Patient reports burning with urination and urine odor for the past 3 days. [facility] Medical History Post-menopausal Hyperlipidemia Hypertension Surgical History History of inguinal hernia repair Family History Father CAD (coronary artery disease) Past heart attack Substance use disorder Mother Diabetes Sister Mitral valve prolapse Substance use disorder Social History Housing: House Alcohol intake: never Patient Tobacco Use Status: Former Tobacco user Quit Date: 1990 e-Cigarette/Vaping Use: Never Used Second Hand Smoke Exposure: No service: No Current occupational status: retired Cognitive needs: No Hearing needs: No Vision needs: Yes Questionnaire Medicare Wellness Checkup [age] What gender do you identify with?: female During the past 4 weeks, how much have you been bothered by emotional problems such as feeling anxious, depressed, irritable, sad or downhearted, and blue?: not at all During the past 4 weeks, has your physical & emotional health limited your social activities with family, friends, neighbors, or groups?: not at all During the past 4 weeks, how much bodily pain have you generally had?: moderate pain During the past 4 weeks, was someone available to help you if you needed & wanted help?: yes, as much as I wanted During the past 4 weeks, what was the hardest physical activity you could do for at least 2 minutes?: moderate Can you get to places out of walking distance without help? (For eg., can you travel alone on buses, taxis or drive your car?): Yes Can you go shopping for groceries or clothes without someone's help?: Yes Can you prepare your own meals?: Yes Can you do your housework without help?: Yes Because of any health problems, do you need the help of another person with your personal care needs such as eating, bathing, dressing or getting around the house?: No Can you handle your own money without help?: Yes During the past 4 weeks, how would you rate your health in general?: very good During the past 4 weeks how have things been going for you?: pretty well Are you having difficulties driving your car?: no Do you always fasten your seat belt when you are in a car?: yes, usually During past 4 weeks, have you been bothered by the following: never: Falling or dizzy when standing up, Sexual problems?, Teeth or denture problems? and Problems using the telephone? and seldom: Trouble eating well? and Tiredness or fatigue? Have you fallen 2 or more times in the past year?: No Are you afraid of falling?: No Are you a smoker?: no During the past 4 weeks, how many drinks of wine, beer, or other alcoholic beverages did you have?: 2-5 drinks per week Do you exercise for about 20 minutes 3 or more times a week?: no, I usually do not exercise this much Have you been given information to help with the following?: no: Hazards in your house that might hurt you? and no: Keeping track of your medications? How often do you have trouble taking medicines the way you have been told to take them?: I always take medicine as prescribed How confident are you that you can control & manage most of your health problems?: very confident What is your race?: White Mini Mental State Exam (MMSE) Orientation What is the (year) (season) (date) (day) (month)?: year, season, date, day and month Score Score: 5 Activity of Daily Living Bathing - sponge bath, tub bath or shower: receives no assistance (gets in/out by self, if usual bathing means Dressing - getting clothes from closets & drawers, including inner/outer garments & fasteners.: gets clothes & gets completely dressed without help Toileting - going to the 'toilet room' for urine/bowel elimination & cleaning self/arranging clothes: goes to toilet room, cleans self, arranges clothes without help Transfer: moves in & out of bed and chair without help (may use support object) Continence: controls urination/bowel movements completely by self Feeding: feeds self without help Total Score: 0 Information obtained from: patient Using telephone: independent Traveling: independent Shopping: independent Preparing meals: independent Housework: independent Taking medicine: independent Managing money: independent PHQ-9 Over the last 2 weeks, how often have you been bothered by any of the following problems? 1. Little interest or pleasure in doing things: not at all 2. Feeling down, depressed, or hopeless: not at all 3. Trouble falling or staying asleep, or sleeping too much: several days 4. Feeling tired or having little energy: several days 5. Poor appetite or overeating: not at all 6. Feeling bad about yourself - or that you are a failure or have let yourself or your family down: not at all 7. Trouble concentrating on things, such as reading the newspaper or watching television: not at all 8. Moving or speaking so slowly that other people could have noticed. Or the opposite - being so fidgety or restless that you have been moving around a lot more than usual: not at all 9. Thoughts that you would be better off or of hurting yourself in some way: not at all Total score: 2 Depression Screening Interpretation: Negative 19477 - PHQ-9 Billing: Yes Source: Developed by Drs. Harvinder Linton, Patrica Avilez, Jorge Dixon and colleagues, with an educational martha from [employer]. Review of Systems Reports as per HPI Physical Exam Vital Signs: Last Vital Signs Pulse 68 04/13/23 11:10 BP 138/80 04/13/23 11:10 Pulse Ox 97 04/13/23 11:10 Oxygen Delivery Method Room Air 04/13/23 11:10 BMI result Body Mass Index 26.9 Const General: cooperative and no acute distress Orientation/consciousness: patient oriented x3 HEENT Other: Whisper test: pass Resp Auscultation: clear to auscultation bilaterally Cardio Rate: regular rate Rhythm: regular rhythm Heart sounds: S1 normal heart sound present and S2 normal heart sound present GI Auscultation: normal bowel sounds Neuro Other: Balance: Normal Get up and walk: able to Romberg: negative Tandem gait: unable to General: patient oriented x3 Assessment & Plan Assessment & Plan (1) Dysuria: Code(s): R30.0 - Dysuria Plan: Start Macrobid b.i.d. for 7 days Increase fluid consumption Notify office if no improvement after antibiotic (2) Hypothyroidism: Code(s): E03.9 - Hypothyroidism, unspecified Plan: Levothyroxine 75 mcg daily (3) Adult general medical exam: Code(s): Z00.00 - Encounter for general adult medical examination without abnormal findings (4) GERD (gastroesophageal reflux disease): Code(s): K21.9 - Gastro-esophageal reflux disease without esophagitis Plan: Nexium 20 mg daily Avoid GERD trigger foods Do not lay down 2-3 hours after evening meal (5) Hyperlipidemia: Code(s): E78.5 - Hyperlipidemia, unspecified Qualifiers: Hyperlipidemia type: unspecified Qualified Code(s): E78.5 - Hyperlipidemia, unspecified Plan: Continue current treatment Low-cholesterol diet (6) Hypertension: Code(s): I10 - Essential (primary) hypertension Qualifiers: Hypertension type: unspecified Qualified Code(s): I10 - Essential (primary) hypertension Plan: Continue current treatment Low-sodium diet Medications: New nitrofurantoin monohyd/m-cryst 100 mg (Macrobid) must administer with a meal/food 100 mg PO Q12H 7 days 14 caps 0RF R30.0 - Dysuria Quality Reporting (2019) Depression/Bipolar (159/160/161/177) PHQ-9: Total score: 2 Coding Level of Care Code Medicare Subsequent (G0439) Est Pt Level 3 (10325) Diagnoses Dysuria R30.0 Hypothyroidism E03.9 Adult general medical exam Z00.00 GERD (gastroesophageal reflux disease) K21.9 Hyperlipidemia, unspecified hyperlipidemia type E78.5 Hyperlipidemia type: unspecified Hypertension, unspecified type I10 Hypertension type: unspecified CPT Codes Advance Care Planning - Time spent: 1-15 minutes, not on file ([id number]) Advance Care Planning Advance Care Planning discussion: Exists, not on file Date of discussion: 04/13/23 Who was present: pt and elevator worker Forms completed: None Time spent: 1-15 minutes, not on file Actual minutes spent: 1 Did not discuss due to Cultural/Spiritual beliefs: No
== END 2023-04-13 11:43 | disposition home or self-care (01) ==
PROVIDERS: PCP Internal Medicine; Visit Provider Nurse Practitioner Family
DX: Z00.00 Encounter for general adult medical examination without abnormal findings (principal); E03.9 Hypothyroidism, unspecified; K21.9 Gastro-esophageal reflux disease without esophagitis; I10 Essential (primary) hypertension; R30.0 Dysuria; E78.5 Hyperlipidemia, unspecified
CPT/HCPCS: 1124F; G0439

== ENCOUNTER 2023-04-21 05:57 | Outpatient (REF) | payer MEDICARE, SELFPAY ==
[2023-04-21 07:32] LABS: Cholesterol 227 mg/dL (<200); HDL Cholesterol 64 mg/dL (>40); LDL Cholesterol Calculated 142 mg/dL (<100); Triglycerides 106 mg/dL (<150)
[2023-04-21 07:47] LABS: Thyroid Stimulating Hormone 0.51 uIU/mL (0.32-4.0)
== END 2023-04-21 05:58 | disposition home or self-care (01) ==
LOC: HO.LAB 05:57
PROVIDERS: PCP Internal Medicine; Visit Provider Internal Medicine
DX: E03.9 Hypothyroidism, unspecified (principal); E78.5 Hyperlipidemia, unspecified
CPT/HCPCS: 36415; 80061; 84443

== ENCOUNTER 2023-05-06 09:12 | Outpatient (AMB) | payer MEDICARE, SELFPAY ==
[2023-05-06 09:16] VITALS: BP 138/62; PULSE 67; O2SAT 98; BMI 26.6
--- NOTE | 2023-05-06 09:16 | A.OFFPC_ITS ---
Vital Signs 05/06/23 09:16 Height 5 ft 8 in Weight 175 lb BMI 26.6 BP 138/62 Blood Pressure Location Lt brachial Position Sitting Pulse 67 Pulse Source Pulse Oximeter Pulse Oximetry (%) 98 Oxygen Delivery Method Room Air Intake Visit Reasons: 3 Mon F/U [employer] Teacher: Not Required per policy Accompanied by: Self / Same As Patient Allergies Jiwlfvs-GYE-FqF Reductase Inhibitor [Ubornjx-Veu-Mtk Reductase Inhibitor] Allergy (Unknown, Verified 05/06/23 09:17) myalgia Medication List - Last Reconciled 05/06/23 by Tate Victor MD apixaban 5 mg PO BID esomeprazole magnesium (Nexium 24HR) 20 mg PO DAILY fenofibrate 54 mg PO DAILY levothyroxine 75 mcg PO DAILY lisinopril 20 mg PO DAILY Tobacco use date assessed: 11/29/22 Fall risk assessment: No Falls in past year Last assessed Fall Risk: 05/06/23 Dental Screening Dental Screen Date: 05/06/23 Did you have a dental visit in the last 12 months?: Yes Did you have a dental problem in the last 6 months where you did not have access to dental care?: No Was dental information given to patient?: Patient has dentist HPI 3 Mon F/U HPI Details hypothyr hyperlip and dvt; stable; compliant [facility] Medical History Post-menopausal Hyperlipidemia Hypertension Surgical History History of inguinal hernia repair Family History Father CAD (coronary artery disease) Past heart attack Substance use disorder Mother Diabetes Sister Mitral valve prolapse Substance use disorder Social History Housing: House Alcohol intake: never Patient Tobacco Use Status: Former Tobacco user Quit Date: 1990 e-Cigarette/Vaping Use: Never Used Second Hand Smoke Exposure: No service: No Current occupational status: retired Cognitive needs: No Hearing needs: No Vision needs: Yes Questionnaire PHQ-9 Over the last 2 weeks, how often have you been bothered by any of the following problems? 1. Little interest or pleasure in doing things: not at all 2. Feeling down, depressed, or hopeless: not at all 3. Trouble falling or staying asleep, or sleeping too much: several days 4. Feeling tired or having little energy: several days 5. Poor appetite or overeating: not at all 6. Feeling bad about yourself - or that you are a failure or have let yourself or your family down: not at all 7. Trouble concentrating on things, such as reading the newspaper or watching television: not at all 8. Moving or speaking so slowly that other people could have noticed. Or the opposite - being so fidgety or restless that you have been moving around a lot more than usual: not at all 9. Thoughts that you would be better off or of hurting yourself in some way: not at all Total score: 2 Depression Screening Interpretation: Negative Depression Screening Done: Yes 21689 - PHQ-9 Billing: Yes Source: Developed by Drs. Harvinder Linton, Patrica Avilez, Jorge Dixon and colleagues, with an educational martha from [employer]. Thrive Questionnaire Date Thrive assessed: 10/27/22 AUDIT C Alcohol Use Questionnaire (AUDIT-C) 1. How often do you have a drink containing alcohol?: Never 2. How many drinks containing alcohol do you have on a typical day when you are drinking?: 1 or 2 (0) 3. How often do you have six or more drinks on one occasion?: Never Total Score: 0 Score Reviewed/Action Taken: No LUCIA-7 AMB Questionnaire LUCIA-7 Date LUCIA - 7 assessed: 10/29/22 Source: Developed by Drs. Harvinder Linton, Patrica Avilez, Jorge Dixon and colleagues, with an educational martha from [employer]. Review of Systems Const Denies chills, Denies headache(s) and Denies weight loss ENT Denies headache(s) Card Denies chest pain, Denies syncope, Denies irregular heart rhythm and Denies dyspnea Resp Denies chest congestion, Denies cough and Denies dyspnea GI Denies abdominal pain, Denies change in stool character, Denies nausea and Denies vomiting Musc Denies deformity and Denies joint swelling Neuro Denies syncope and Denies headache(s) Physical exam (Primary Care) Vital Signs: Last Vital Signs Pulse 67 05/06/23 09:16 BP 138/62 10/13/23 09:16 Pulse Ox 98 05/06/23 09:16 Oxygen Delivery Method Room Air 05/06/23 09:16 BMI result Body Mass Index 26.6 Tobacco/Smoking Status: Tobacco use Status Tobacco use date assessed 11/29/22 05/06/23 09:21 Patient Tobacco Use Status Former Tobacco user 05/06/23 09:21 e-Cigarette/Vaping Use Never Used 05/06/23 09:21 PHQ-9: PHQ-9 Score PHQ-9: Total score 2 05/06/23 09:21 Depression Screening Interpretation: Negative Thrive Assessment: Date of Thrive Assessment Date Thrive assessed 10/27/22 05/06/23 09:21 Const General: cooperative, comfortable, no acute distress and alert Neck Neck: Yes no lymphadenopathy Thyroid: Thyroid normal Resp Effort & Inspection: normal respiratory effort Auscultation: clear to auscultation bilaterally Percussion: percussion normal Cardio Jugular venous distension: no JVD Palpation: normal PMI Rate: regular rate Rhythm: regular rhythm Heart sounds: S1 normal heart sound present and S2 normal heart sound present GI Inspection: Yes normal to inspection Palpation (GI): No hepatosplenomegaly present Skin General skin exam: no rashes or lesions noted Extrem General: Yes no clubbing, cyanosis or edema Assessment and Plan Assessment & Plan (1) Venous thromboembolism: Code(s): I82.90 - Acute embolism and thrombosis of unspecified vein Plan: stable; sme rx (2) Hypothyroidism: Code(s): E03.9 - Hypothyroidism, unspecified Plan: stable; same rx (3) Hyperlipidemia: Code(s): E78.5 - Hyperlipidemia, unspecified Qualifiers: Hyperlipidemia type: unspecified Qualified Code(s): E78.5 - Hyperlipidemia, unspecified Plan: stable; same rx Orders: Orders XR lumbar spine 2-3V Today M54.9 - Dorsalgia, unspecified Lipid Panel Today E78.5 - Hyperlipidemia, unspecified Thyroid Stimulating Hormone Today E03.9 - Hypothyroidism, unspecified Coding Level of Care Code Est Pt Level 4 (11975) Diagnoses Venous thromboembolism I82.90 Hypothyroidism E03.9 Hyperlipidemia, unspecified hyperlipidemia type E78.5 Hyperlipidemia type: unspecified
== END 2023-05-06 09:39 | disposition home or self-care (01) ==
PROVIDERS: PCP Internal Medicine; Visit Provider Internal Medicine
DX: I82.90 Acute embolism and thrombosis of unspecified vein (principal); E03.9 Hypothyroidism, unspecified; E78.5 Hyperlipidemia, unspecified
CPT/HCPCS: 99214

== ENCOUNTER 2023-05-07 07:00 | Outpatient (REF) | payer MEDICARE, SELFPAY ==
--- NOTE | ~2023-05-07 | XR_ITS ---
EXAMINATION: XR LUMBOSACRAL SPINE CLINICAL INFORMATION: Back pain COMPARISON: None available. TECHNIQUE: Three views of the lumbosacral spine. FINDINGS: Levoscoliosis of the lumbar spine. Bones are diffusely demineralized. Atherosclerotic aortoiliac calcifications. Straightening of the normal lumbar lordosis. 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 Advanced multilevel degenerative changes in the lumbar spine with multilevel hypertrophic change and loss of disc space height. XR/XR lumbar spine 2-3V IMPRESSION: Advanced multilevel degenerative changes in the lumbar spine.
== END 2023-05-07 07:01 | disposition home or self-care (01) ==
LOC: HO.XRAY 07:00
PROVIDERS: PCP Internal Medicine; Visit Provider Internal Medicine
DX: M54.9 Dorsalgia, unspecified (principal)
CPT/HCPCS: 72100

== ENCOUNTER 2023-08-02 06:00 | Outpatient (REF) | payer MEDICARE, SELFPAY ==
[2023-08-02 08:17] LABS: Cholesterol 216 mg/dL (<200); HDL Cholesterol 72 mg/dL (>40); LDL Cholesterol Calculated 129 mg/dL (<100); Triglycerides 76 mg/dL (<150)
[2023-08-02 08:33] LABS: Thyroid Stimulating Hormone 0.48 uIU/mL (0.32-4.0)
== END 2023-08-02 06:01 | disposition home or self-care (01) ==
LOC: HO.LAB 06:00
PROVIDERS: PCP Internal Medicine; Visit Provider Internal Medicine
DX: E78.5 Hyperlipidemia, unspecified (principal); E03.9 Hypothyroidism, unspecified
CPT/HCPCS: 36415; 80061; 84443

== ENCOUNTER 2023-11-01 05:56 | Outpatient (REF) | payer MEDICARE, SELFPAY ==
[2023-11-01 06:11] LABS: MANUAL DIFF FLAG NO
[2023-11-01 07:14] LABS: Basophils Absolute Auto 0.1 X10*3/uL (0.0-0.2); Basophils Percent Auto 0.9 % (0-2); Eosinophils Absolute Auto 0.2 X10*3/uL (0.0-0.4); Eosinophils Percent Auto 3.5 % (0-4); Hematocrit 40.5 % (37.0-47.0); Hemoglobin 13.5 g/dl (12.0-16.0); Imm Gran Abs Auto 0.01 X10*3/uL (0.00-0.03); Imm Gran Pct Auto 0.2 % (0.0-0.4); Lymphocytes Absolute Auto 2.4 X10*3/uL (1.2-4.9); Lymphocytes Percent Auto 41.7 % (20-40); Mean Corpuscular HGB Conc 33.3 g/dl (31.0-35.0); Mean Corpuscular Hemoglobin 31.7 pg (27.0-33.0); Mean Corpuscular Volume 95.1 fL (80.0-98.0); Mean Platelet Volume 10.6 fL (9.4-12.3); Monocytes Absolute Auto 0.5 X10*3/uL (0.1-1.2); Monocytes Percent Auto 8.3 % (2-11); Neutrophils Absolute Auto 2.6 x10*3/uL (2.0-8.3); Neutrophils Percent Auto 45.4 % (45-73); Platelet Count 176 X10*3/uL (160-400); Red Blood Count 4.26 X10*6/uL (4.20-5.50); Red Cell Distribution Width 13.6 % (11.0-16.0); White Blood Count 5.7 X10*3/uL (4.8-10.8)
[2023-11-01 07:40] LABS: Alanine Aminotransferase 13 U/L (0-31); Albumin Level 3.7 g/dL (3.5-5.0); Alkaline Phosphatase 53 U/L (39-117); Anion Gap 10 (12-20); Aspartate Amino Transferase 20 U/L (5-31); Bilirubin Total 0.3 mg/dL (0.0-1.0); Blood Urea Nitrogen 35 mg/dL (9-16); Calcium 9.6 mg/dL (8.4-10.2); Carbon Dioxide 24 mmol/L (22-29); Chloride 110 mmol/L (96-108); Cholesterol 201 mg/dL (<200); Estimated Glomerular Filt Rate 38; Glucose Fasting 93 mg/dL (60-99); HDL Cholesterol 72 mg/dL (>40); LDL Cholesterol Calculated 111 mg/dL (<100); Potassium 5.1 mmol/L (3.3-5.1); Sodium 139 mmol/L (135-145); Total Protein 7.5 g/dL (6.5-8.0); Triglycerides 92 mg/dL (<150)
[2023-11-01 07:55] LABS: Thyroid Stimulating Hormone 0.57 uIU/mL (0.32-4.0)
== END 2023-11-01 05:57 | disposition home or self-care (01) ==
LOC: HO.LAB 05:56
PROVIDERS: PCP Internal Medicine; Visit Provider Internal Medicine
DX: D64.9 Anemia, unspecified (principal); E03.9 Hypothyroidism, unspecified; E78.5 Hyperlipidemia, unspecified; N28.9 Disorder of kidney and ureter, unspecified
CPT/HCPCS: 36415; 80053; 80061; 84443; 85025

== ENCOUNTER 2023-11-10 09:18 | Outpatient (AMB) | payer MEDICARE, SELFPAY ==
--- NOTE | 2023-11-10 09:22 | A.OFFPC_ITS ---
Vital Signs 11/10/23 09:23 Height 5 ft 8 in Weight 176 lb BMI 26.8 BP 124/80 Blood Pressure Location Lt brachial Position Sitting Pulse 82 Pulse Source Pulse Oximeter Pulse Oximetry (%) 97 Oxygen Delivery Method Room Air Intake Visit Reasons: 3mth f/u labs Allergies Dtlyjzq-FCU-ElT Reductase Inhibitor [Enmwvtl-Tag-Nlm Reductase Inhibitor] Allergy (Unknown, Verified 11/10/23 09:26) myalgia Medication List - Last Reconciled 11/10/23 by Tate Victor MD apixaban 5 mg PO BID esomeprazole magnesium (Nexium 24HR) 20 mg PO DAILY fenofibrate 54 mg PO DAILY levothyroxine 75 mcg PO DAILY lisinopril 20 mg PO DAILY tramadol 50 mg PO Q8H PRN Tobacco use date assessed: 11/10/23 Fall risk assessment: No Falls in past year Last assessed Fall Risk: 11/10/23 Dental Screening Dental Screen Date: 11/10/23 Was dental information given to patient?: Patient has dentist HPI 3mth f/u labs HPI Details hypothyroidism HYTN and hyperlip on rx; a few months ago; coping [facility] Medical History Post-menopausal Hyperlipidemia Hypertension Surgical History History of inguinal hernia repair Family History Father CAD (coronary artery disease) Past heart attack Substance use disorder Mother Diabetes Sister Mitral valve prolapse Substance use disorder Social History Housing: House Alcohol intake: never Patient Tobacco Use Status: Former Tobacco user Quit Date: 1990 e-Cigarette/Vaping Use: Never Used Second Hand Smoke Exposure: No service: No Current occupational status: retired Cognitive needs: No Hearing needs: No Vision needs: Yes Questionnaire Thrive Questionnaire Date Thrive assessed: 10/27/22 AUDIT C Alcohol Use Questionnaire (AUDIT-C) 1. How often do you have a drink containing alcohol?: Never 2. How many drinks containing alcohol do you have on a typical day when you are drinking?: 1 or 2 (0) 3. How often do you have six or more drinks on one occasion?: Never Total Score: 0 Score Reviewed/Action Taken: No LUCIA-7 AMB Questionnaire LUCIA-7 Date LUCIA - 7 assessed: 10/29/22 Source: Developed by Drs. Harvinder Linton, Patrica Avilez, Jorge Dixon and colleagues, with an educational martha from [employer]. Review of Systems Const Denies chills, Denies headache(s) and Denies weight loss ENT Denies headache(s) Card Denies chest pain, Denies syncope, Denies irregular heart rhythm and Denies dyspnea Resp Denies chest congestion, Denies cough and Denies dyspnea GI Denies abdominal pain, Denies change in stool character, Denies nausea and Denies vomiting Musc Denies deformity and Denies joint swelling Neuro Denies syncope and Denies headache(s) Physical exam (Primary Care) Vital Signs: Last Vital Signs Pulse 82 11/10/23 09:23 BP 124/80 11/10/23 09:23 Pulse Ox 97 11/10/23 09:23 Oxygen Delivery Method Room Air 11/10/23 09:23 BMI result Body Mass Index 26.8 Tobacco/Smoking Status: Tobacco use Status Tobacco use date assessed 11/10/23 11/10/23 09:26 Patient Tobacco Use Status Former Tobacco user 11/10/23 09:26 e-Cigarette/Vaping Use Never Used 11/10/23 09:26 Thrive Assessment: Date of Thrive Assessment Date Thrive assessed 10/27/22 11/10/23 09:26 Const General: cooperative, comfortable, no acute distress and alert Neck Neck: Yes no lymphadenopathy Thyroid: Thyroid normal Resp Effort & Inspection: normal respiratory effort Auscultation: clear to auscultation bilaterally Percussion: percussion normal Cardio Jugular venous distension: no JVD Palpation: normal PMI Rate: regular rate Rhythm: regular rhythm Heart sounds: S1 normal heart sound present and S2 normal heart sound present GI Inspection: Yes normal to inspection Palpation (GI): No hepatosplenomegaly present Skin General skin exam: no rashes or lesions noted Extrem General: Yes no clubbing, cyanosis or edema Assessment and Plan Assessment & Plan (1) Hypothyroidism: Code(s): E03.9 - Hypothyroidism, unspecified Plan: stable; same rx (2) Hyperlipidemia: Code(s): E78.5 - Hyperlipidemia, unspecified Qualifiers: Hyperlipidemia type: unspecified Qualified Code(s): E78.5 - Hyper lipidemia, unspecified Plan: stable; same rx (3) Hypertension: Code(s): I10 - Essential (primary) hypertension Qualifiers: Hypertension type: unspecified Qualified Code(s): I10 - Essential (primary) hypertension Plan: stable; same rx Orders: Orders Lipid Panel Today Z13.220 - Encounter for screening for lipoid disorders Thyroid Stimulating Hormone Today Z13.29 - Encounter for screening for other suspected endocrine disorder Coding Level of Care Code Est Pt Level 4 (72673) Diagnoses Hypothyroidism E03.9 Hyperlipidemia, unspecified hyperlipidemia type E78.5 Hyperlipidemia type: unspecified Hypertension, unspecified type I10 Hypertension type: unspecified
[2023-11-10 09:23] VITALS: BP 124/80; PULSE 82; O2SAT 97; BMI 26.8
== END 2023-11-10 09:43 | disposition home or self-care (01) ==
PROVIDERS: PCP Internal Medicine; Visit Provider Internal Medicine
DX: E03.9 Hypothyroidism, unspecified (principal); E78.5 Hyperlipidemia, unspecified; I10 Essential (primary) hypertension
CPT/HCPCS: 99214

== ENCOUNTER 2023-12-27 06:00 | Outpatient (REF) | payer MEDICARE, SELFPAY ==
[2023-12-27 08:52] LABS: Appearance Urine Cloudy; Color Urine Yellow; Glucose Urine UA Negative (Negative); Leukocyte Esterase Urine Large (3+) (Negative); Nitrite Urine Negative (Negative); PH 5.5 (5.0-9.0); UMIC TRIGGER UACC YES; Urine Blood Large (3+) (Negative); Urine Ketones Negative (Negative); Urine Protein Negative (Neg-Trace)
[2023-12-27 08:56] LABS: Bacteria Urine 2+ (None Seen); Hyaline Casts Urine 0-2 /LPF (0-2); RBC Urine >20 /HPF (0-2); UACC Culture Trigger YES; WBC Urine >50 /HPF (0-5)
== END 2023-12-27 06:01 | disposition home or self-care (01) ==
LOC: HO.LAB 06:00
PROVIDERS: PCP Internal Medicine; Visit Provider Internal Medicine
DX: R30.0 Dysuria (principal); N39.0 Urinary tract infection, site not specified
CPT/HCPCS: 81001; 87086; 87088; 87186

== ENCOUNTER 2024-01-18 06:14 | Emergency (ER) | payer MEDICARE, SELFPAY ==
--- NOTE | ~2024-01-18 | XR_ITS ---
EXAMINATION: XR LUMBOSACRAL SPINE CLINICAL INFORMATION: Low back pain COMPARISON: 05/07/2023 TECHNIQUE: Three views of the lumbosacral spine. FINDINGS: There is spondylitic change throughout the lumbar spine but no fracture or destructive process or alignment abnormality. The SI joints appear symmetric. Aorta appears heavily calcified but nonaneurysmal. XR/XR lumbar spine 2-3V IMPRESSION: Multilevel degenerative change noted.
[2024-01-18 06:17] VITALS: BP 149/66; PULSE 97; RESP 18; TEMP 36.4; O2SAT 98; BMI 27.2
[2024-01-18 06:40] LABS: MANUAL DIFF FLAG NO
[2024-01-18 06:41] LABS: Basophils Absolute Auto 0.1 X10*3/uL (0.0-0.2); Basophils Percent Auto 1.7 % (0-2); Eosinophils Absolute Auto 0.3 X10*3/uL (0.0-0.4); Eosinophils Percent Auto 5.8 % (0-4); Hematocrit 40.7 % (37.0-47.0); Hemoglobin 13.3 g/dl (12.0-16.0); Imm Gran Abs Auto 0.01 X10*3/uL (0.00-0.03); Imm Gran Pct Auto 0.2 % (0.0-0.4); Lymphocytes Absolute Auto 2.5 X10*3/uL (1.2-4.9); Lymphocytes Percent Auto 46.6 % (20-40); Mean Corpuscular HGB Conc 32.7 g/dl (31.0-35.0); Mean Corpuscular Hemoglobin 31.7 pg (27.0-33.0); Mean Corpuscular Volume 97.1 fL (80.0-98.0); Mean Platelet Volume 9.9 fL (9.4-12.3); Monocytes Absolute Auto 0.5 X10*3/uL (0.1-1.2); Monocytes Percent Auto 9.4 % (2-11); Neutrophils Absolute Auto 1.9 x10*3/uL (2.0-8.3); Neutrophils Percent Auto 36.3 % (45-73); Platelet Count 168 X10*3/uL (160-400); Red Blood Count 4.19 X10*6/uL (4.20-5.50); Red Cell Distribution Width 13.1 % (11.0-16.0); White Blood Count 5.3 X10*3/uL (4.8-10.8)
[2024-01-18 06:46] LABS: INTERNATIONAL NORM RATIO 1.1 (0.9-1.1); Prothrombin Time 12.9 SEC (11.1-13.3)
[2024-01-18 07:01] LABS: Alanine Aminotransferase 13 U/L (0-31); Alkaline Phosphatase 54 U/L (39-117); Anion Gap 12 (12-20); Aspartate Amino Transferase 19 U/L (5-31); Bilirubin Total 0.3 mg/dL (0.0-1.0); Blood Urea Nitrogen 27 mg/dL (9-16); Calcium 9.8 mg/dL (8.4-10.2); Carbon Dioxide 24 mmol/L (22-29); Chloride 109 mmol/L (96-108); Creatinine Clr Calc Pharmacy 42.1; Estimated Glomerular Filt Rate 40; Glucose Random 95 mg/dL (60-115); Potassium 4.4 mmol/L (3.3-5.1); Sodium 141 mmol/L (135-145); Total Protein 7.7 g/dL (6.5-8.0)
--- NOTE | 2024-01-18 07:33 | ED_ITS ---
HPI - General Adult General Chief complaint: General Medical Stated complaint: ear back and leg pain Time Seen by Provider: 01/18/24 07:02 Source: patient Mode of arrival: ambulatory Limitations: no limitations History of Present Illness ED Provider: Dr. Iglesias HPI narrative: Patient with lumbar pain radiating down her legs. Patient has had prior lumbar pain. In addition patient states that her right ear is clogged. Onset (ago): week(s) Radiation: other (legs) Severity: moderate Pain Consistency: intermittent Related Data Home Medications ?Medication ?Instructions ?Recorded ?Confirmed esomeprazole magnesium 20 mg 20 mg PO DAILY 05/28/20 11/10/23 capsule,delayed release (Nexium 24HR) Previous Rx's ?Medication ?Instructions ?Recorded tramadol 50 mg tablet 50 mg PO Q8H PRN pain #20 tabs 05/18/23 levothyroxine 75 mcg tablet 75 mcg PO DAILY #90 tabs 06/09/23 apixaban 5 mg tablet 5 mg PO BID #180 tabs 07/28/23 fenofibrate 54 mg tablet 54 mg PO DAILY #100 tabs 10/30/23 lisinopril 20 mg tablet 20 mg PO DAILY #100 tabs 10/30/23 nitrofurantoin 100 mg PO Q12H 7 days #14 caps 12/27/23 monohydrate/macrocrystals 100 mg capsule (Macrobid) cyclobenzaprine 10 mg tablet 10 mg PO TID #10 tabs 01/18/24 Allergies Allergy/AdvReac Type Severity Reaction Status Date / Time Ykgzzua-IUN-EaJ Reductase Allergy Unknown myalgia Verified 01/18/24 06:19 Inhibitor [Lmmsyoo-Apz-Ahq Reductase Inhibitor] Review of Systems 2 Review of Systems: Yes all other systems are reviewed and are negative Neurologic: Denies Sensory deficit (Neuro) [facility] Past Medical History Medical History Post-menopausal Hyperlipidemia Hypertension Surgical History History of inguinal hernia repair Family History Family History Father CAD (coronary artery disease) Past heart attack Substance use disorder Mother Diabetes Sister Mitral valve prolapse Substance use disorder Social History Social History Housing: House Alcohol intake: never Patient Tobacco Use Status: Former Tobacco user Smoked in Last 30 Days: No e-Cigarette/Vaping Use: Never Used Second Hand Smoke Exposure: No Use of substances other than those prescribed or required for medical reasons: No Advance Directives: No Advance Directives Information Provided: No Do you have a plan to hurt others: No Plan service: No Current occupational status: retired Cognitive needs: No Hearing needs: No Vision needs: Yes Physical Exam ED Vital Signs: Vital Signs - 24 hr 01/18/24 06:17 01/18/24 08:19 Temperature 97.6 F Pulse Rate 97 74 Respiratory Rate 18 16 Blood Pressure 149/66 H 144/47 H Pulse Oximetry 98 100 Oxygen Delivery Method Room Air Room Air BMI result Body Mass Index 27.2 Const General: healthy appearing Nutritional Appearance: average body habitus Orientation/consciousness: oriented to person and patient oriented x3 Limitations: no limitations HENMT Other: TMS clear, no otitis media or cerumen plug Head: Yes normal to inspection Ears: external ears normal General nose exam: Normal external nose present Mouth: Normal oral and palatal mucosa present and oropharynx normal Throat: Yes posterior oropharynx normal Eyes General: appearance normal, both eyes and all related structures Neck Neck: Yes normal visual inspection Chest Chest palpation & inspection: normal inspection of the chest Resp Auscultation: clear to auscultation bilaterally Cardio Jugular venous distension: no JVD Rate: regular rate Rhythm: regular rhythm Heart sounds: S1 normal heart sound present and S2 normal heart sound present GI Inspection: Yes normal to inspection Palpation (GI): Soft to palpation, nontender and No hepatosplenomegaly present Auscultation: normal bowel sounds Back/Spine/Pelvis Other: bilateral SI joint tenderness, no real sciatic pain. Skin General skin exam: no rashes or lesions noted Neuro Other: legs with good strength, no numbness or weakness General: oriented to person and patient oriented x3 Cranial nerves: Yes CN's II-XII intact bilaterally Motor exam (neuro): 5/5 motor strength present throughout Sensory Exam: No Sensory deficit (Neuro) Extrem General: Yes normal to inspection Psych Appearance: grossly normal Course Reevaluation(s) Reevaluation #1: Will treat patient with flexeril and give patient a referral for Dr. Penings back surgeon Time: 10:39 Medications Administered Discontinued Medications Generic Name Dose Route Start Last Admin Trade Name Alexandrea PRN Reason Stop Dose Admin Ketorolac Tromethamine 30 mg 01/18/24 07:32 01/18/24 07:46 Ketorolac Tromethamine 30 Mg/Ml Vial IM 01/18/24 07:33 30 mg ONCE ONE Administration Medical Decision Making Differential Diagnosis Differential Diagnoses: The differential diagnosis associated with the presentation includes (lumbar radiculopathy, otitis externa, otitis media, cerumen impaction) Lab Data 01/18/24 06:35 01/18/24 06:35 Labs: Lab Results 01/18/24 01/18/24 Range/Units 06:35 08:15 WBC 5.3 (4.8-10.8) X10*3/uL RBC 4.19 L (4.20-5.50) X10*6/uL Hgb 13.3 (12.0-16.0) g/dl Hct 40.7 (37.0-47.0) % MCV 97.1 (80.0-98.0) fL MCH 31.7 (27.0-33.0) pg MCHC 32.7 (31.0-35.0) g/dl RDW 13.1 (11.0-16.0) % Plt Count 168 (160-400) X10*3/uL MPV 9.9 (9.4-12.3) fL Immature Gran % (Auto) 0.2 (0.0-0.4) % Neut % (Auto) 36.3 L (45-73) % Lymph % (Auto) 46.6 H (20-40) % [place] % (Auto) 9.4 (2-11) % Eos % (Auto) 5.8 H (0-4) % Baso % (Auto) 1.7 (0-2) % Lymph # (Auto) 2.5 (1.2-4.9) X10*3/uL [place] # (Auto) 0.5 (0.1-1.2) X10*3/uL Eos # (Auto) 0.3 (0.0-0.4) X10*3/uL Baso # (Auto) 0.1 (0.0-0.2) X10*3/uL Abs Immat Gran (auto) 0.01 (0.00-0.03) X10*3/uL Absolute Neuts (auto) 1.9 L (2.0-8.3) x10*3/uL Absolute Nucleated RBC 0.000 (0.0-0.012) X10*3/uL Nucleated RBC % (auto) 0.0 (0.0-0.2) /100WBC PT 12.9 (11.1-13.3) SEC INR 1.1 (0.9-1.1) Sodium 141 (135-145) mmol/L Potassium 4.4 (3.3-5.1) mmol/L Chloride 109 H (96-108) mmol/L Carbon Dioxide 24 (22-29) mmol/L Anion Gap 12 (12-20) BUN 27 H (9-16) mg/dL Creatinine 1.31 (0.5-1.4) mg/dL Estim Creat Clear Calc 42.1 Estimated GFR 40 Random Glucose 95 (60-115) mg/dL Calcium 9.8 (8.4-10.2) mg/dL Total Bilirubin 0.3 (0.0-1.0) mg/dL AST 19 (5-31) U/L ALT 13 (0-31) U/L Alkaline Phosphatase 54 (39-117) U/L Total Protein 7.7 (6.5-8.0) g/dL Albumin 4.0 (3.5-5.0) g/dL Urine Color Yellow Urine Appearance Clear Urine pH 5.5 (5.0-9.0) Ur Specific [place] 1.015 (1.005-1.025) Urine Protein Negative (Neg-Trace) mg/dL Urine Glucose (UA) Negative (Negative) mg/dL Urine Ketones Negative (Negative) mg/dL Urine Blood Negative (Negative) Urine Nitrite Negative (Negative) Ur Leukocyte Esterase Moderate (2+) H (Negative) Urine RBC 0-2 (0-2) /HPF Urine WBC 0-5 (0-5) /HPF Ur Squamous Epith Cells 3-5 (0-2) /HPF Urine Bacteria None Seen (None Seen) Hyaline Casts 0-2 (0-2) /LPF Independent Interpretation I performed an independent interpretation of an: Plain X-Ray (severe djd of lumbar spine) Tests considered The following testing was considered but not selected: MRI of spine considered but patient does not have neurologic loss or weakness Prescription Management I considered prescription management with: Pain Medication (will not start narcotics) Chronic Conditions Patient?s care impacted by: Other (arthritis) Discharge Plan Discharge Clinical Impression: Acute radicular low back pain Patient Disposition: Home, Self-Care Instructions: Acute Low Back Pain (ED), Lumbar Radiculopathy (ED), Lumbar Radiofrequency Ablation (DC) Prescriptions: New cyclobenzaprine 10 mg tablet 10 mg PO TID Qty: 10 0RF No Action tramadol 50 mg tablet 50 mg PO Q8H PRN (Reason: pain) Qty: 20 0RF levothyroxine 75 mcg tablet 75 mcg PO DAILY Qty: 90 7RF apixaban 5 mg tablet 5 mg PO BID Qty: 180 3RF lisinopril 20 mg tablet 20 mg PO DAILY Qty: 100 2RF fenofibrate 54 mg tablet 54 mg PO DAILY Qty: 100 2RF nitrofurantoin monohyd/m-cryst [Macrobid] 100 mg capsule 100 mg PO Q12H 7 Days Qty: 14 0RF Rx Instructions: must administer with a meal/food esomeprazole magnesium [Nexium 24HR] 20 mg capsule,delayed release(DR/EC) 20 mg PO DAILY Referrals: Barrie Maki MD, PhD [Physician] - 5 days Print Language: Uzbek
[2024-01-18] MEDS: Ketorolac Tromethamine 30 MG/ML VIAL IM (07:46)
[2024-01-18 08:19] VITALS: BP 144/47; PULSE 74; RESP 16; O2SAT 100
[2024-01-18 08:22] LABS: Appearance Urine Clear; Color Urine Yellow; Glucose Urine UA Negative (Negative); Leukocyte Esterase Urine Moderate (2+) (Negative); Nitrite Urine Negative (Negative); PH 5.5 (5.0-9.0); Specific Gravity - Urine 1.015 (1.005-1.025); UMIC TRIGGER UACC YES; Urine Blood Negative (Negative); Urine Ketones Negative (Negative); Urine Protein Negative (Neg-Trace)
[2024-01-18 08:30] LABS: Bacteria Urine None Seen (None Seen); Hyaline Casts Urine 0-2 /LPF (0-2); RBC Urine 0-2 /HPF (0-2); WBC Urine 0-5 /HPF (0-5)
[2024-01-18 10:53] VITALS: BP 144/47; PULSE 74; RESP 16; TEMP 36.4; O2SAT 100
== END 2024-01-18 10:54 | disposition home or self-care (01) ==
PROVIDERS: Emergency Provider Emergency Medicine
DX: M54.17 Radiculopathy, lumbosacral region (principal); M54.50 Low back pain, unspecified; H92.09 Otalgia, unspecified ear
CPT/HCPCS: 36415; 72100; 80053; 81001; 85025; 85610; 96372; 99284; J1885

== ENCOUNTER 2024-01-31 06:02 | Outpatient (REF) | payer MEDICARE, SELFPAY ==
[2024-01-31 11:09] LABS: Cholesterol 201 mg/dL (<200); HDL Cholesterol 69 mg/dL (>40); LDL Cholesterol Calculated 113 mg/dL (<100); Triglycerides 97 mg/dL (<150)
[2024-01-31 11:11] LABS: Thyroid Stimulating Hormone 0.47 uIU/mL (0.32-4.0)
== END 2024-01-31 06:03 | disposition home or self-care (01) ==
LOC: HO.HMGCLDS 06:02
PROVIDERS: PCP Internal Medicine; Visit Provider Internal Medicine
DX: Z13.29 Encounter for screening for other suspected endocrine disorder (principal); Z13.220 Encounter for screening for lipoid disorders
CPT/HCPCS: 36415; 80061; 84443

== ENCOUNTER 2024-02-13 09:34 | Outpatient (AMB) | payer MEDICARE, SELFPAY ==
[2024-02-13 09:35] VITALS: BP 128/64; PULSE 80; O2SAT 97; BMI 27.4
--- NOTE | 2024-02-13 09:35 | MHC.PC.OV ---
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 per policy Accompanied by: Self / Same As Patient Allergies Gnfvcgh-PUS-CrB Reductase Inhibitor [Dqjvxtd-Fed-Pte Reductase Inhibitor] Allergy (Unknown, Verified 02/13/24 09:36) myalgia Medication List - Last Reconciled 02/13/24 by Tate Victor MD apixaban 5 mg PO BID cyclobenzaprine 10 mg PO TID esomeprazole magnesium (Nexium 24HR) 20 mg PO DAILY fenofibrate 54 mg PO DAILY fluticasone furoate 27.5 mcg/actuation (Flonase Sensimist) 1 spray intranasal DAILY levothyroxine 75 mcg PO DAILY lisinopril 20 mg PO DAILY nitrofurantoin monohyd/m-cryst 100 mg (Macrobid) 100 mg PO Q12H 7 days tramadol 50 mg PO Q8H PRN Tobacco use date assessed: 11/10/23 Fall risk assessment: No Falls in past year Last assessed Fall Risk: 02/13/24 Dental Screening Dental Screen Date: 11/10/23 HPI 3mof\u HPI Details right sided lumbar radiculopathy; using cane; xr showed OA; not improving; went to ER and referred to Dr Monzon but won't see her w/o mri REPLACED BY [facility] Medical History Post-menopausal Hyperlipidemia Hypertension Surgical History History of inguinal hernia repair Family History Father CAD (coronary artery disease) Past heart attack Substance use disorder Mother Diabetes Sister Mitral valve prolapse Substance use disorder Social History Housing: House Alcohol intake: never Patient Tobacco Use Status: Former Tobacco user e-Cigarette/Vaping Use: Never Used Second Hand Smoke Exposure: No service: No Current occupational status: retired Cognitive needs: Yes (cane) Hearing needs: No Vision needs: Yes Questionnaire PHQ-9 Over the last 2 weeks, how often have you been bothered by any of the following problems? 1. Little interest or pleasure in doing things: not at all 2. Feeling down, depressed, or hopeless: not at all 3. Trouble falling or staying asleep, or sleeping too much: not at all 4. Feeling tired or having little energy: not at all 5. Poor appetite or overeating: not at all 6. Feeling bad about yourself - or that you are a failure or have let yourself or your family down: not at all 7. Trouble concentrating on things, such as reading the newspaper or watching television: not at all 8. Moving or speaking so slowly that other people could have noticed. Or the opposite - being so fidgety or restless that you have been moving around a lot more than usual: not at all 9. Thoughts that you would be better off or of hurting yourself in some way: not at all Total score: 0 Depression Screening Interpretation: Negative Depression Screening Done: Yes 61020 - PHQ-9 Billing: Yes Source: Developed by Drs. Harvinder Linton, Patrica Avilez, Jorge Dixon and colleagues, with an educational martha from [employer]. Thrive Questionnaire Date Thrive assessed: 02/13/24 I am a: Patient What is your living situation today?: I have a steady place to live Within the past 12 months, did the food you bought not last and you didn't have the money to get more?: Never true Within the past 12 months, did you worry whether your food would run out before you got money to buy more?: Never true Do you have trouble paying for medicines?: No Do you have trouble getting transportation to medical appointments?: No Do you have trouble paying your heating and electricity bill?: No Do you have trouble taking care of your child, family member or friend?: No Do you have trouble with day-to-day activities such as bathing, preparing meals, shopping, managing finances, etc.?: No Are you currently unemployed and looking for a job?: No Are you interested in more education?: No Please select the resources that you would like help with: None THRIVE Score: 0 LUCIA-7 AMB Questionnaire LUCIA-7 Date LUCIA - 7 assessed: 02/13/24 Feeling nervous, anxious, or on edge: 0 = Not at all Not being able to stop or control worryin = Not at all Worrying too much about different things: 0 = Not at all Trouble relaxin = Not at all Being so restless that it is hard to sit still: 0 = Not at all Becoming easily annoyed or irritable: 0 = Not at all Feeling afraid as if something awful might happen: 0 = Not at all Total LUCIA-7 score (0-4 normal; 5-9 mild; 10-14 moderate; 15-21 severe): 0 Source: Developed by Drs. Harvinder Linton, Patrica Avilez, Jorge Dixon and colleagues, with an educational martha from [employer]. Review of Systems Const Denies chills, Denies headache(s) and Denies weight loss ENT Denies headache(s) Card Denies chest pain, Denies syncope, Denies irregular heart rhythm and Denies dyspnea Resp Denies chest congestion, Denies cough and Denies dyspnea GI Denies abdominal pain, Denies change in stool character, Denies nausea and Denies vomiting Musc Denies deformity and Denies joint swelling Neuro Denies syncope and Denies headache(s) Physical exam (Primary Care) Vital Signs: Last Vital Signs Pulse 80 02/13/24 09:35 BP 128/64 02/13/24 09:35 Pulse Ox 97 02/13/24 09:35 Oxygen Delivery Method Room Air 02/13/24 09:35 BMI result Body Mass Index 27.4 Tobacco/Smoking Status: Tobacco use Status Tobacco use date assessed 11/10/23 02/13/24 09:37 Patient Tobacco Use Status Former Tobacco user 02/13/24 09:37 e-Cigarette/Vaping Use Never Used 02/13/24 09:37 PHQ-9: PHQ-9 Score PHQ-9: Total score 0 02/13/24 09:37 Depression Screening Interpretation: Negative Thrive Assessment: Date of Thrive Assessment Date Thrive assessed 02/13/24 02/13/24 09:37 Const General: cooperative, comfortable, no acute distress and alert Neck Neck: Yes no lymphadenopathy Thyroid: Thyroid normal Resp Effort & Inspection: normal respiratory effort Auscultation: clear to auscultation bilaterally Percussion: percussion normal Cardio Jugular venous distension: no JVD Palpation: normal PMI Rate: regular rate Rhythm: regular rhythm Heart sounds: S1 normal heart sound present and S2 normal heart sound present GI Inspection: Yes normal to inspection Palpation (GI): No hepatosplenomegaly present Skin General skin exam: no rashes or lesions noted Extrem General: Yes no clubbing, cyanosis or edema Assessment and Plan Assessment & Plan (1) Lumbar radiculopathy: Code(s): M54.16 - Radiculopathy, lumbar region Plan: mri ordered Orders: Orders MR lumbar spine wo con Today M54.16 - Radiculopathy, lumbar region Coding Level of Care Code Est Pt Level 3 (23286) Diagnoses Lumbar radiculopathy M54.16
== END 2024-02-13 10:03 | disposition home or self-care (01) ==
PROVIDERS: PCP Internal Medicine; Visit Provider Internal Medicine
DX: M54.16 Radiculopathy, lumbar region (principal)
CPT/HCPCS: 99213

== ENCOUNTER 2024-03-05 17:29 | Outpatient (REF) | payer MEDICARE, SELFPAY ==
--- NOTE | ~2024-03-05 | MR_ITS ---
EXAMINATION: MR LUMBAR SPINE WITHOUT CONTRAST CLINICAL INFORMATION: Lumbar radiculopathy. COMPARISON: Lumbar spine radiographs from 01/18/2024. CT abdomen and pelvis from 05/10/2021. TECHNIQUE: MRI of the lumbar spine was obtained using routine sequences without contrast. FINDINGS: Mild left convex curvature of the lumbar spine. Straightening of the normal lumbar lordosis. Mild degenerative facet with retrolisthesis of L1-L4. Minimal degenerative grade 1 anterolisthesis of L4 on L5. Moderate degenerative disc disease at T10-T11 and from T12-L5. Mild degenerative disc disease at all additional levels. Associated mixed Modic type discogenic endplate changes including mild Modic type I discogenic edema from T10-L5. Mild marrow edema within the T12-L3 facets consistent with degenerative stress reaction. No additional suspicious marrow edema. The vertebral body heights are well-maintained. The conus medullaris terminates at the level of L1-L2. The distal spinal cord is normal in appearance. Moderate subcutaneous edema within the posterior soft tissues of the back from L1-L5. No additional significant abnormalities of the paraspinal musculature. Limited evaluation of the intra-abdominal structures without significant abnormalities. The abdominal aorta is of normal contour and caliber. AXIAL SPINAL LEVELS: L1-L2: Moderate diffuse disc bulge with posterior osseous ridging and superimposed right foraminal disc protrusion. There is moderate bilateral facet joint arthropathy. There is moderate right and mild left neural foraminal stenosis. There is stenosis of the right subarticular zone with mild spinal canal stenosis centrally. L2-L3: Moderate diffuse disc bulge with posterior osseous ridging. There is severe right worse than left facet joint arthropathy. There is moderate right worse than left neural foraminal stenosis. There is stenosis of the subarticular zones with moderate to severe spinal canal stenosis centrally. L3-L4: Prominent diffuse disc bulge with superimposed right subarticular disc extrusion with inferior migration. There is severe bilateral facet joint arthropathy. There is moderate to severe bilateral neural foraminal stenosis. There is severe spinal canal stenosis. L4-L5: Moderate diffuse disc bulge. There is severe right worse than left facet joint arthropathy. There is moderate bilateral neural foraminal stenosis. There is severe spinal canal stenosis. L5-S1: Mild diffuse disc bulge. There is severe right and moderate left facet joint arthropathy. There is moderate right and mild left neural foraminal stenosis. There is stenosis of the subarticular zones with no overt spinal canal stenosis centrally. MR/MR lumbar spine wo con IMPRESSION: Advanced multilevel degenerative spondyloarthropathy of the lumbar spine as described in detail above. Most notably, there are severe spinal canal stenoses from L2-L5. Mild spinal canal stenosis at L1-L2. A right subarticular disc extrusion further exerts mass effect on the traversing right L4 nerve root. Stenoses of the subarticular zones and moderate to severe neural foraminal stenoses from L1-S1.
== END 2024-03-05 17:30 | disposition home or self-care (01) ==
LOC: HO.MRI 17:29
PROVIDERS: PCP Internal Medicine; Visit Provider Internal Medicine
DX: M54.16 Radiculopathy, lumbar region (principal)
CPT/HCPCS: 72148

== ENCOUNTER 2024-03-13 11:23 | Outpatient (AMB) | payer MEDICARE, SELFPAY ==
[2024-03-13 11:26] VITALS: BP 146/78; PULSE 97; O2SAT 95; BMI 27.5
--- NOTE | 2024-03-13 11:26 | A.OFFPC_ITS ---
Vital Signs 03/13/24 11:26 Height 5 ft 8 in Weight 181 lb BMI 27.5 BP 146/78 H Blood Pressure Location Lt brachial Position Sitting Pulse 97 Pulse Source Pulse Oximeter Pulse Oximetry (%) 95 Oxygen Delivery Method Room Air Intake Visit Reasons: Back Pain, Requesting treatment plan from MRI Allergies Hluuwtz-BET-MfE Reductase Inhibitor [Onrxyrt-Nic-Eys Reductase Inhibitor] Allergy (Unknown, Verified 03/13/24 11:28) myalgia Medication List - Last Reconciled 03/13/24 by Tate Victor MD apixaban 5 mg PO BID cyclobenzaprine 10 mg PO TID esomeprazole magnesium (Nexium 24HR) 20 mg PO DAILY fenofibrate 54 mg PO DAILY fluticasone furoate 27.5 mcg/actuation (Flonase Sensimist) 1 spray intranasal DAILY levothyroxine 75 mcg PO DAILY lisinopril 20 mg PO DAILY nitrofurantoin monohyd/m-cryst 100 mg (Macrobid) 100 mg PO Q12H 7 days tramadol 50 mg PO Q8H PRN Tobacco use date assessed: 11/10/23 Fall risk assessment: No Falls in past year Last assessed Fall Risk: 03/13/24 Dental Screening Dental Screen Date: 11/10/23 HPI Back Pain, Requesting treatment plan from MRI HPI Details has worsening back pain; mri showed OA DDD and spinal stenosis; would benefit from a spine referrl [facility] Medical History Post-menopausal Hyperlipidemia Hypertension Surgical History History of inguinal hernia repair Family History Father CAD (coronary artery disease) Past heart attack Substance use disorder Mother Diabetes Sister Mitral valve prolapse Substance use disorder Social History Housing: House Alcohol intake: never Patient Tobacco Use Status: Former Tobacco user e-Cigarette/Vaping Use: Never Used Second Hand Smoke Exposure: No service: No Current occupational status: retired Cognitive needs: Yes (cane) Hearing needs: No Vision needs: Yes Questionnaire PHQ-9 Over the last 2 weeks, how often have you been bothered by any of the following problems? 1. Little interest or pleasure in doing things: not at all 2. Feeling down, depressed, or hopeless: not at all 3. Trouble falling or staying asleep, or sleeping too much: not at all 4. Feeling tired or having little energy: not at all 5. Poor appetite or overeating: not at all 6. Feeling bad about yourself - or that you are a failure or have let yourself or your family down: not at all 7. Trouble concentrating on things, such as reading the newspaper or watching television: not at all 8. Moving or speaking so slowly that other people could have noticed. Or the opposite - being so fidgety or restless that you have been moving around a lot more than usual: not at all 9. Thoughts that you would be better off or of hurting yourself in some way: not at all Total score: 0 Depression Screening Interpretation: Negative Depression Screening Done: Yes 45555 - PHQ-9 Billing: Yes Source: Developed by Drs. Harvinder Linton, Patrica Avilez, Jorge Dixon and colleagues, with an educational martha from [employer]. Thrive Questionnaire Date Thrive assessed: 02/13/24 AUDIT C Alcohol Use Questionnaire (AUDIT-C) 1. How often do you have a drink containing alcohol?: Never 2. How many drinks containing alcohol do you have on a typical day when you are drinking?: 1 or 2 (0) 3. How often do you have six or more drinks on one occasion?: Never Total Score: 0 Score Reviewed/Action Taken: No LUCIA-7 AMB Questionnaire LUCIA-7 Date LUCIA - 7 assessed: 02/13/24 Source: Developed by Drs. Harvinder Linton, Patrica Avilez, Jorge Dixon and colleagues, with an educational martha from [employer]. Review of Systems Const Denies chills, Denies headache(s) and Denies weight loss ENT Denies headache(s) Card Denies chest pain, Denies syncope, Denies irregular heart rhythm and Denies dyspnea Resp Denies chest congestion, Denies cough and Denies dyspnea GI Denies abdominal pain, Denies change in stool character, Denies nausea and Denies vomiting Musc Denies deformity and Denies joint swelling Neuro Denies syncope and Denies headache(s) Physical exam (Primary Care) Vital Signs: Last Vital Signs Pulse 97 03/13/24 11:26 BP 146/78 H 03/13/24 11:26 Pulse Ox 95 03/13/24 11:26 Oxygen Delivery Method Room Air 03/13/24 11:26 BMI result Body Mass Index 27.5 Tobacco/Smoking Status: Tobacco use Status Tobacco use date assessed 11/10/23 03/13/24 11:31 Patient Tobacco Use Status Former Tobacco user 03/13/24 11:31 e-Cigarette/Vaping Use Never Used 03/13/24 11:31 PHQ-9: PHQ-9 Score PHQ-9: Total score 0 03/13/24 11:31 Depression Screening Interpretation: Negative Thrive Assessment: Date of Thrive Assessment Date Thrive assessed 02/13/24 03/13/24 11:31 Const General: cooperative, comfortable, no acute distress and alert Neck Neck: Yes no lymphadenopathy Thyroid: Thyroid normal Resp Effort & Inspection: normal respiratory effort Auscultation: clear to auscultation bilaterally Percussion: percussion normal Cardio Jugular venous distension: no JVD Palpation: normal PMI Rate: regular rate Rhythm: regular rhythm Heart sounds: S1 normal heart sound present and S2 normal heart sound present GI Inspection: Yes normal to inspection Palpation (GI): No hepatosplenomegaly present Skin General skin exam: no rashes or lesions noted Extrem General: Yes no clubbing, cyanosis or edema Assessment and Plan Assessment & Plan (1) Spinal stenosis: Code(s): M48.00 - Spinal stenosis, site unspecified Plan: rx sent and referral made Orders: Referrals Neurosurgery Referral M48.00 - Spinal stenosis, site unspecified Medications: New oxycodone Partial Fill upon patient request. 5 mg PO Q6H PRN 20 tabs 0RF pain Coding Level of Care Code Est Pt Level 3 (33216) Diagnoses Spinal stenosis M48.00
== END 2024-03-13 11:47 | disposition home or self-care (01) ==
PROVIDERS: PCP Internal Medicine; Visit Provider Internal Medicine
DX: M48.00 Spinal stenosis, site unspecified (principal)
CPT/HCPCS: 99213

== ENCOUNTER 2024-03-19 08:47 | Outpatient (AMB) | payer MEDICARE, SELFPAY ==
--- NOTE | 2024-03-19 08:52 | HO.SPINEOV ---
Intake Visit Reasons: Spinal stenosis Intake Note: Ms. Portillo is here today c/o left sided back pain and numbness on her feet. Medication Assistant Required: No Allergies Ccrcmqs-ZDN-LaB Reductase Inhibitor [Typpjxo-Ffa-Zwj Reductase Inhibitor] Allergy (Unknown, Verified 03/13/24 11:28) myalgia Assessment & Plan Assessment & Plan (1) Spinal stenosis: Code(s): M48.00 - Spinal stenosis, site unspecified Category: Medical Plan Dear Dr Victor, Thank you for referring Mrs Portillo to our office today. She is a very nice 74-year-old female who presents today for evaluation severe pain going down her left leg. It starts in about her left buttock area, radiates into her thigh and down into her calf. Her whole left foot is numb. The symptoms started about 3 months ago. She feels as though it may have been coming on well before then, but the intensity the pain was really nothing that she could not just work through. However, over the last 3 months it is gotten steadily worse. At 1st it was just with walking, and now it is even there when she is sitting and even when she is sleeping. It is significantly affecting her ability to mobilize and be functional with ADLs etc.. She does not like taking medications but has used oxycodone as needed, Tylenol and Motrin. No recent physical therapy, cortisone injections, chiropractic or acupuncture. She had a lumbar MRI done at [facility] showing severe stenosis at multiple levels of the lumbar spine was sent today for an evaluation. PMH: She is history of DVT few years back and she is on Eliquis. History of hypothyroidism, GERD, hypertension, high cholesterol, tonsillectomy, 2 hernia surgeries. Denies any histories of heart attacks, strokes, major abdominal surgery, pulmonary problems, liver disease, kidney disease, diabetes. Social hx: She has not smoke, occasionally uses alcohol, no recreational drugs Medications: Lisinopril, oxycodone, levothyroxine, Eliquis, fenofibrate, omeprazole, Flonase Allergies: Statins Physical exam: Awake alert oriented no acute distress but she is very uncomfortable standing, slightly wobbly trying to get up on the examining table. Strength is intact in bilateral lower extremities with intact reflexes at the patella but absent at the Achilles. Positive straight leg raise at about 20 degrees. Imaging review: Lumbar MRI done at [place] shows multilevel degenerative disc disease. She has moderate stenosis at L2-3, severe stenosis at L3-4 and L4-5. There is probably moderate left lateral recess stenosis at L5-S1. Impression: 74-year-old female presents with left leg pain shooting down from her buttock into her thigh and calf. The symptoms have been quite severe for the last 3 months but probably coming on longer than that. A 1st was just with standing walking but now it is there all the time, however is still worse with activity. She has severe stenosis at L3-4 and L4-5. The radiologist reports severe stenosis at L2-3 but I would rate this from a surgical standpoint probably moderate. Typically this is something Dr. Maki would offer lumbar decompression in the form of either laminotomy with unilateral approach for bilateral decompression versus just a traditional standard laminectomy. I did discuss the surgery with the patient, risks, benefits etc. we also discussed recovery. Success rate for these kind of surgery is 90%. We also discussed coming off Eliquis as part of the surgery perioperative management. Once I have a chance to review everything with Dr. Maki I will get back to the patient with a final plan. Thank you for allowing us to care for your patient. The total time spent with this visit with this patient was 45 minutes reviewing history, physical exam, lumbar imaging review, and implementation of treatment plan or further diagnostic testing Bandar Maki MD,PhD [facility] Coding Level of Care Code New Pt Level 4 (00089) Diagnoses Spinal stenosis M48.00
== END 2024-03-19 09:58 | disposition home or self-care (01) ==
PROVIDERS: PCP Internal Medicine; Referring Provider Physical Medicine & Rehabilitation; Visit Provider Physician Assistant
DX: M48.00 Spinal stenosis, site unspecified (principal)
CPT/HCPCS: 99204

== ENCOUNTER → 2024-03-19 08:47 | Outpatient (BNVA) | payer MEDICARE, SELFPAY | PROVIDERS: PCP Internal Medicine; Visit Provider Physician Assistant | DX: M48.00 Spinal stenosis, site unspecified (principal) | CPT/HCPCS: 99202 ==

== ENCOUNTER 2024-04-10 12:24 | Outpatient (REF) | payer MEDICARE, SELFPAY ==
--- NOTE | ~2024-04-10 | MM_ITS ---
EXAMINATION: MM SCREENING DIGITAL BREAST TOMOSYNTHESIS, BILATERAL CLINICAL INFORMATION: Screening. Asymptomatic. COMPARISON: Mammography: Comparison is made with available priors TECHNIQUE: Digital breast mammography with tomosynthesis is performed in both the craniocaudal and mediolateral oblique views along with computer-aided detection (CAD). FINDINGS: There are scattered areas of fibroglandular density (ACR BI-RADS breast composition Category b). There are no significant masses, abnormal calcifications, or other abnormalities. MM/MM tomosynthesis screening BI IMPRESSION: No mammographic evidence of malignancy. ASSESSMENT: BI-RADS BI-RADS 1 - Negative RECOMMENDATION: Routine annual mammography screening. 1 year F/U This examination should not preclude the clinical evaluation of a suspicious palpable abnormality. This patient's information was entered into a reminder system with a target due date for their next mammogram. Electronically signed by: Pascale Bowen DO 04/23/2024 04:28 PM EDT
== END 2024-04-10 12:25 | disposition home or self-care (01) ==
LOC: HO.MAMMO 12:24
PROVIDERS: PCP Internal Medicine; Visit Provider Internal Medicine
DX: Z12.31 Encounter for screening mammogram for malignant neoplasm of breast (principal)
CPT/HCPCS: 77063; 77067

== ENCOUNTER → 2024-04-10 12:45 | Outpatient (BNV) | payer MEDICARE, SELFPAY | PROVIDERS: PCP Internal Medicine; Visit Provider Internal Medicine | DX: Z12.31 Encounter for screening mammogram for malignant neoplasm of breast (principal) | CPT/HCPCS: 77063; 77067 ==

== ENCOUNTER 2024-04-18 10:47 | Outpatient (AMB) | payer MEDICARE, SELFPAY ==
[2024-04-18 10:50] VITALS: BP 138/72; PULSE 77; O2SAT 95; BMI 27.7
--- NOTE | 2024-04-18 10:56 | AM.OFFVISMDC ---
Intake Vital Signs 04/18/24 10:50 04/18/24 10:57 Height 5 ft 8 in Weight 182 lb BMI 27.7 27.7 BP 138/72 Blood Pressure Location Lt brachial Position Sitting Pulse 77 Pulse Source Pulse Oximeter Pulse Oximetry (%) 95 Oxygen Delivery Method Room Air Intake Visit Reasons: AWV Due for Cologuard Road Builder Required: No Accompanied by: Self / Same As Patient Allergies Cnoyhgk-SEY-QyD Reductase Inhibitor [Kboiolf-Wuv-Sap Reductase Inhibitor] Allergy (Unknown, Verified 04/18/24 10:56) myalgia Medication List - Last Reconciled 04/19/24 by Tate Victor MD apixaban 5 mg PO BID cyclobenzaprine 10 mg PO TID esomeprazole magnesium (Nexium 24HR) 20 mg PO DAILY fenofibrate 54 mg PO DAILY fluticasone furoate 27.5 mcg/actuation (Flonase Sensimist) 1 spray intranasal DAILY levothyroxine 75 mcg PO DAILY lisinopril 20 mg PO DAILY nitrofurantoin monohyd/m-cryst 100 mg (Macrobid) 100 mg PO Q12H 7 days oxycodone 5 mg PO Q6H PRN tramadol 50 mg PO Q8H PRN HPI AWV Due for Cologuard HPI Details DVT hyperlipidemia and hypertension; doing well; all forms for awv given to patient [facility] Medical History Post-menopausal Hyperlipidemia Hypertension Surgical History History of inguinal hernia repair Family History Father CAD (coronary artery disease) Past heart attack Substance use disorder Mother Diabetes Sister Mitral valve prolapse Substance use disorder Social History Housing: House Alcohol intake: never Patient Tobacco Use Status: Former Tobacco user e-Cigarette/Vaping Use: Never Used Second Hand Smoke Exposure: No service: No Current occupational status: retired Cognitive needs: Yes (cane) Hearing needs: No Vision needs: Yes Questionnaire Medicare Wellness Checkup [age] What gender do you identify with?: female During the past 4 weeks, how much have you been bothered by emotional problems such as feeling anxious, depressed, irritable, sad or downhearted, and blue?: not at all During the past 4 weeks, has your physical & emotional health limited your social activities with family, friends, neighbors, or groups?: not at all During the past 4 weeks, how much bodily pain have you generally had?: moderate pain During the past 4 weeks, was someone available to help you if you needed & wanted help?: yes, as much as I wanted During the past 4 weeks, what was the hardest physical activity you could do for at least 2 minutes?: very light Can you get to places out of walking distance without help? (For eg., can you travel alone on buses, taxis or drive your car?): Yes Can you go shopping for groceries or clothes without someone's help?: Yes Can you prepare your own meals?: Yes Can you do your housework without help?: Yes Because of any health problems, do you need the help of another person with your personal care needs such as eating, bathing, dressing or getting around the house?: No Can you handle your own money without help?: Yes During the past 4 weeks, how would you rate your health in general?: good During the past 4 weeks how have things been going for you?: good & bad parts about equal Are you having difficulties driving your car?: no Do you always fasten your seat belt when you are in a car?: yes, usually During past 4 weeks, have you been bothered by the following: never: Falling or dizzy when standing up, Sexual problems?, Trouble eating well?, Teeth or denture problems? and Problems using the telephone? and seldom: Tiredness or fatigue? Have you fallen 2 or more times in the past year?: No Are you afraid of falling?: No Are you a smoker?: no During the past 4 weeks, how many drinks of wine, beer, or other alcoholic beverages did you have?: 1 drink or less per week Do you exercise for about 20 minutes 3 or more times a week?: no, I usually do not exercise this much Have you been given information to help with the following?: yes: Hazards in your house that might hurt you? and yes: Keeping track of your medications? How often do you have trouble taking medicines the way you have been told to take them?: I always take medicine as prescribed How confident are you that you can control & manage most of your health problems?: very confident What is your race?: White Mini Mental State Exam (MMSE) Orientation What is the (year) (season) (date) (day) (month)?: year, season, date, day and month Where are we (state) (county) (town or city) (hospital) (floor)?: state, county, town or city, hospital/clinic and floor Registration Name of 3 unrelated objects clearly and slowly, then ask patient to repeat all 3 of them. (1st repeat determines score. Make sure they can repeat all three): object 1, object 2 and object 3 Attention & Calculation (CHOOSE ONE) Ask pt to begin with 100 & count backward by 7. Stop after 5 repeats. If pt cannot ask them to spell the word WORLD backward.: 86 Spell WORLD backwards (DLROW): 3 letters Recall Ask patient to repeat the 3 items from question #3.: object 1 Score Score: 18 Activity of Daily Living Bathing - sponge bath, tub bath or shower: receives no assistance (gets in/out by self, if usual bathing means Dressing - getting clothes from closets & drawers, including inner/outer garments & fasteners.: gets clothes & gets completely dressed without help Toileting - going to the 'toilet room' for urine/bowel elimination & cleaning self/arranging clothes: goes to toilet room, cleans self, arranges clothes without help Transfer: moves in & out of bed and chair without help (may use support object) Continence: controls urination/bowel movements completely by self Feeding: feeds self without help Total Score: 0 Information obtained from: patient Using telephone: independent Traveling: independent Shopping: independent Preparing meals: independent Housework: independent Taking medicine: independent Managing money: independent PHQ-9 Over the last 2 weeks, how often have you been bothered by any of the following problems? 1. Little interest or pleasure in doing things: not at all 2. Feeling down, depressed, or hopeless: not at all 3. Trouble falling or staying asleep, or sleeping too much: not at all 4. Feeling tired or having little energy: several days 5. Poor appetite or overeating: not at all 6. Feeling bad about yourself - or that you are a failure or have let yourself or your family down: not at all 7. Trouble concentrating on things, such as reading the newspaper or watching television: not at all 8. Moving or speaking so slowly that other people could have noticed. Or the opposite - being so fidgety or restless that you have been moving around a lot more than usual: not at all 9. Thoughts that you would be better off or of hurting yourself in some way: not at all Total score: 1 Depression Screening Interpretation: Positive Depression Screening Done: Yes 71857 - PHQ-9 Billing: Yes Source: Developed by Drs. Harvinder Linton, Patrica Avilez, Jorge Dixon and colleagues, with an educational martha from [employer]. Review of Systems Const Denies chills, Denies fatigue, Denies headache(s) and Denies weight loss Eyes Denies change in vision, Denies diplopia and Denies eye pain ENT Reports Normal hearing present, Denies vertigo, Denies dizziness, Denies headache(s) and Denies nasal discharge Card Denies chest pain, Denies rapid heart rate and Denies dyspnea on exertion Resp Denies chest congestion, Denies cough, Denies pain with cough and Denies dyspnea on exertion GI Denies abdominal pain, Denies hematochezia and Denies change in bowel habits Musc Denies myalgias, Denies arthralgias and Denies joint swelling Skin/Breast Denies lesions and Denies unusual bruising Neuro Reports Normal hearing present, Denies vertigo, Denies dizziness, Denies headache(s) and Denies focal weakness Endo Denies fatigue Physical Exam Vital Signs: Last Vital Signs Pulse 77 04/18/24 10:50 BP 138/72 04/18/24 10:50 Pulse Ox 95 04/18/24 10:50 Oxygen Delivery Method Room Air 04/18/24 10:50 BMI result Body Mass Index 27.7 Neuro Cranial nerves: Yes Normal hearing present Assessment & Plan Assessment & Plan (1) Encounter for initial annual wellness visit (AWV) in Medicare patient: Code(s): Z00.00 - Encounter for general adult medical examination without abnormal findings Plan: rhomberg and whisper tests normal (2) Hyperlipidemia: Code(s): E78.5 - Hyperlipidemia, unspecified Qualifiers: Hyperlipidemia type: unspecified Qualified Code(s): E78.5 - Hyperlipidemia, unspecified Plan: stable; same rx (3) Hypertension: Code(s): I10 - Essential (primary) hypertension Qualifiers: Hypertension type: unspecified Qualified Code(s): I10 - Essential (primary) hypertension Plan: stable; same rx Orders: Orders Lipid Panel Today Z13.220 - Encounter for screening for lipoid disorders Complete Blood Count Auto Diff Today Z13.0 - Encounter for screening for diseases of the blood and blood-forming organs and certain disorders involving the immune mechanism Comprehensive [place]. Panel Fast Today Z13.9 - Encounter for screening, unspecified Thyroid Stimulating Hormone Today Z13.29 - Encounter for screening for other suspected endocrine disorder Medications: Refilled apixaban 5 mg PO BID 180 tabs 3RF Quality Reporting (2019) Depression/Bipolar (159/160/161/177) PHQ-9: Total score: 1 Coding Level of Care Code Medicare Subsequent (G0439) Diagnoses Encounter for initial annual wellness visit (AWV) in Medicare patient Z00.00 Hyperlipidemia, unspecified hyperlipidemia type E78.5 Hyperlipidemia type: unspecified Hypertension, unspecified type I10 Hypertension type: unspecified CPT Codes Advance Care Planning - Advance Care Planning discussion: On file, no changes ([id number]) Advance Care Planning Advance Care Planning discussion: On file, no changes Forms completed: Health Care Proxy
[2024-04-18 10:57] VITALS: BMI 27.7
== END 2024-04-18 11:21 | disposition home or self-care (01) ==
PROVIDERS: PCP Internal Medicine; Visit Provider Internal Medicine
DX: Z00.00 Encounter for general adult medical examination without abnormal findings (principal); E78.5 Hyperlipidemia, unspecified; I10 Essential (primary) hypertension

== ENCOUNTER → 2024-04-18 10:47 | Outpatient (BNVA) | payer MEDICARE, SELFPAY | PROVIDERS: PCP Internal Medicine; Visit Provider Internal Medicine ==

== ENCOUNTER 2024-04-27 09:05 | Outpatient (REF) | payer MEDICARE, SELFPAY ==
[2024-04-27 09:19] LABS: MANUAL DIFF FLAG NO
[2024-04-27 09:29] LABS: Basophils Percent Auto 0.9 % (0-2); Eosinophils Absolute Auto 0.1 X10*3/uL (0.0-0.4); Hematocrit 42.6 % (37.0-47.0); Hemoglobin 13.7 g/dl (12.0-16.0); Imm Gran Abs Auto 0.01 X10*3/uL (0.00-0.03); Imm Gran Pct Auto 0.2 % (0.0-0.4); Lymphocytes Absolute Auto 1.8 X10*3/uL (1.2-4.9); Mean Corpuscular HGB Conc 32.2 g/dl (31.0-35.0); Mean Corpuscular Hemoglobin 31.4 pg (27.0-33.0); Mean Corpuscular Volume 97.5 fL (80.0-98.0); Monocytes Absolute Auto 0.4 X10*3/uL (0.1-1.2); Monocytes Percent Auto 8.1 % (2-11); Neutrophils Absolute Auto 2.3 x10*3/uL (2.0-8.3); Neutrophils Percent Auto 49.8 % (45-73); Platelet Count 175 X10*3/uL (160-400); Red Blood Count 4.37 X10*6/uL (4.20-5.50); Red Cell Distribution Width 12.2 % (11.0-16.0); White Blood Count 4.7 X10*3/uL (4.8-10.8)
[2024-04-27 11:03] LABS: Alanine Aminotransferase 14 U/L (0-31); Alkaline Phosphatase 49 U/L (39-117); Anion Gap 12 (12-20); Aspartate Amino Transferase 19 U/L (5-31); Bilirubin Total 0.3 mg/dL (0.0-1.0); Blood Urea Nitrogen 26 mg/dL (9-16); Calcium 9.7 mg/dL (8.4-10.2); Carbon Dioxide 27 mmol/L (22-29); Chloride 108 mmol/L (96-108); Cholesterol 215 mg/dL (<200); Estimated Glomerular Filt Rate 39; Glucose Fasting 97 mg/dL (60-99); HDL Cholesterol 73 mg/dL (>40); LDL Cholesterol Calculated 127 mg/dL (<100); Potassium 4.7 mmol/L (3.3-5.1); Sodium 142 mmol/L (135-145); Total Protein 7.8 g/dL (6.5-8.0); Triglycerides 77 mg/dL (<150)
[2024-04-27 11:04] LABS: Thyroid Stimulating Hormone 0.94 uIU/mL (0.32-4.0)
== END 2024-04-27 09:06 | disposition home or self-care (01) ==
LOC: HO.LAB 09:05
PROVIDERS: PCP Internal Medicine; Visit Provider Internal Medicine
DX: Z13.220 Encounter for screening for lipoid disorders (principal); Z13.0 Encounter for screening for diseases of the blood and blood-forming organs and certain disorders involving the immune mechanism; Z13.9 Encounter for screening, unspecified; Z13.29 Encounter for screening for other suspected endocrine disorder
CPT/HCPCS: 36415; 80053; 80061; 84443; 85025

== ENCOUNTER 2024-05-03 09:38 | Outpatient (AMB) | payer MEDICARE, SELFPAY ==
[2024-05-03 09:46] VITALS: BP 136/72; PULSE 64; O2SAT 97; BMI 27.7
--- NOTE | 2024-05-03 09:46 | MHC.PC.OV ---
Vital Signs 05/03/24 09:46 Height 5 ft 8 in Weight 182 lb BMI 27.7 BP 136/72 Blood Pressure Location Lt brachial Position Sitting Pulse 64 Pulse Source Pulse Oximeter Pulse Oximetry (%) 97 Oxygen Delivery Method Room Air Intake Visit Reasons: [place] [facility] [place] Property Manager Required: No Accompanied by: Self / Same As Patient Allergies Uqxvuwr-ZSR-OhI Reductase Inhibitor [Egridbf-Kuo-Hiw Reductase Inhibitor] Allergy (Unknown, Verified 05/03/24 09:47) myalgia Medication List - Last Reconciled 05/03/24 by Tate Victor MD apixaban 5 mg PO BID esomeprazole magnesium (Nexium 24HR) 20 mg PO DAILY fenofibrate 54 mg PO BEDTIME fluticasone furoate 27.5 mcg/actuation (Flonase Sensimist) 1 spray intranasal DAILY levothyroxine 75 mcg PO BEDTIME lisinopril 20 mg PO BEDTIME oxycodone 5 mg PO Q6H PRN Tobacco use date assessed: 11/10/23 Last assessed Fall Risk: 05/03/24 Dental Screening Dental Screen Date: 11/10/23 HPI [place] [facility] [place] HPI Details Having back surgery next week; has hypertension, hypothyroidism and hyperlipidemia on Rx; well controlled; has venous thromboembolism on apixaban; she had a dvt; stable; she had an EKG which showed non-specific ST-T changes. No history of CAD or chest pain PFSH Medical History (Updated 05/03/24 @ 10:10 by Tate Victor MD) DVT (deep venous thrombosis) GERD (gastroesophageal reflux disease) Numbness On anticoagulant therapy Post-menopausal Hyperlipidemia Hypertension Surgical History (Updated 04/27/24 @ 10:00 by Yvonne Argueta RN) Hx of tonsillectomy H/O colonoscopy History of inguinal hernia repair Family History Father CAD (coronary artery disease) Past heart attack Substance use disorder Mother Diabetes Sister Mitral valve prolapse Substance use disorder Social History Housing: House Are you a primary lawn caretaker to a significant other at home: No Do you presently have visiting nurse or other home services: No Alcohol intake: never Patient Tobacco Use Status: Former Tobacco user Tobacco use type: Cigarette e-Cigarette/Vaping Use: Never Used Second Hand Smoke Exposure: No service: No Current occupational status: retired Cognitive needs: Yes (cane) Hearing needs: No Vision needs: Yes Questionnaire PHQ-9 Over the last 2 weeks, how often have you been bothered by any of the following problems? 1. Little interest or pleasure in doing things: not at all 2. Feeling down, depressed, or hopeless: not at all 3. Trouble falling or staying asleep, or sleeping too much: not at all 4. Feeling tired or having little energy: several days 5. Poor appetite or overeating: not at all 6. Feeling bad about yourself - or that you are a failure or have let yourself or your family down: not at all 7. Trouble concentrating on things, such as reading the newspaper or watching television: not at all 8. Moving or speaking so slowly that other people could have noticed. Or the opposite - being so fidgety or restless that you have been moving around a lot more than usual: not at all 9. Thoughts that you would be better off or of hurting yourself in some way: not at all Total score: 1 Depression Screening Interpretation: Positive Depression Screening Done: Yes 79382 - PHQ-9 Billing: Yes Source: Developed by Drs. Harvinder Linton, Patrica Avilez, Jorge Dixon and colleagues, with an educational martha from [employer]. Thrive Questionnaire Date Thrive assessed: 02/13/24 Are you currently unemployed and looking for a job?: No AUDIT C Alcohol Use Questionnaire (AUDIT-C) 1. How often do you have a drink containing alcohol?: Never 2. How many drinks containing alcohol do you have on a typical day when you are drinking?: 1 or 2 (0) 3. How often do you have six or more drinks on one occasion?: Never Total Score: 0 Score Reviewed/Action Taken: No LUCIA-7 AMB Questionnaire LUCIA-7 Date LUCIA - 7 assessed: 02/13/24 Source: Developed by Drs. Harvinder Linton, Jorge Shoemaker and colleagues, with an educational martha from [employer]. Review of Systems Const Denies chills, Denies fatigue, Denies headache(s) and Denies weight loss Eyes Denies change in vision, Denies diplopia and Denies eye pain ENT Denies vertigo, Denies dizziness, Denies headache(s) and Denies nasal discharge Card Denies chest pain, Denies rapid heart rate and Denies dyspnea on exertion Resp Denies chest congestion, Denies cough, Denies pain with cough and Denies dyspnea on exertion GI Denies abdominal pain, Denies hematochezia and Denies change in bowel habits Musc Denies myalgias, Denies arthralgias and Denies joint swelling Skin/Breast Denies lesions and Denies unusual bruising Neuro Denies vertigo, Denies dizziness, Denies headache(s) and Denies focal weakness Endo Denies fatigue Physical exam (Primary Care) Vital Signs: Last Vital Signs Pulse 64 05/03/24 09:46 BP 136/72 05/03/24 09:46 Pulse Ox 97 05/03/24 09:46 Oxygen Delivery Method Room Air 05/03/24 09:46 BMI result Body Mass Index 27.7 Tobacco/Smoking Status: Tobacco use Status Tobacco use date assessed 11/10/23 05/03/24 09:48 Patient Tobacco Use Status Former Tobacco user 05/03/24 09:48 Tobacco use type Cigarette 05/03/24 09:48 e-Cigarette/Vaping Use Never Used 05/03/24 09:48 PHQ-9: PHQ-9 Score PHQ-9: Total score 1 05/03/24 09:48 Depression Screening Interpretation: Positive Thrive Assessment: Date of Thrive Assessment Date Thrive assessed 02/13/24 05/03/24 09:48 Const General: cooperative, healthy appearing and no acute distress Orientation/consciousness: oriented to person, oriented to place and oriented to time [facility] Head: Yes normal to inspection, Yes normocephalic and Yes atraumatic Mouth: Normal oral and palatal mucosa present and tongue normal Throat: Yes posterior oropharynx normal and Yes uvula midline Eyes General: appearance normal, both eyes and all related structures Neck Neck: Yes normal visual inspection, Yes full ROM and Yes no lymphadenopathy Thyroid: Thyroid normal Carotids: normal carotid upstroke Chest Chest palpation & inspection: normal inspection of the chest Resp Effort & Inspection: normal respiratory effort and able to speak in complete sentences Auscultation: clear to auscultation bilaterally Cardio Jugular venous distension: no JVD Palpation: normal PMI Rate: regular rate Rhythm: regular rhythm Heart sounds: S1 normal heart sound present and S2 normal heart sound present GI Inspection: Yes normal to inspection Palpation (GI): Soft to palpation and No hepatosplenomegaly present Auscultation: normal bowel sounds General: Yes no CVA tenderness Back/Spine/Pelvis Back: no CVA tenderness Skin General skin exam: no rashes or lesions noted Neuro General: oriented to person, oriented to place and oriented to time Extrem General: Yes normal to inspection and Yes full ROM Coding Level of Care Code Est Pt Level 5 (78619) Diagnoses Preop exam for internal medicine Z01.818 Venous thromboembolism I82.90 Hypothyroidism E03.9 Hyperlipidemia, unspecified hyperlipidemia type E78.5 Hyperlipidemia type: unspecified Hypertension, unspecified type I10 Hypertension type: unspecified Assessment & Plan Assessment & Plan (1) Preop exam for internal medicine: Code(s): Z01.818 - Encounter for other preprocedural examination Category: Medical Plan: low risk for cardiovascular complications; EKG reveals minor non-specific changes, no need for further work-up; cleared for surgery (2) Venous thromboembolism: Code(s): I82.90 - Acute embolism and thrombosis of unspecified vein Category: Medical Plan: can safely stop apixaban 3 days before procedure (3) Hypothyroidism: Code(s): E03.9 - Hypothyroidism, unspecified Category: Medical Plan: stable; same rx (4) Hyperlipidemia: Code(s): E78.5 - Hyperlipidemia, unspecified Category: Medical Qualifiers: Hyperlipidemia type: unspecified Qualified Code(s): E78.5 - Hyperlipidemia, unspecified Plan: stable; same rx (5) Hypertension: Code(s): I10 - Essential (primary) hypertension Category: Medical Qualifiers: Hypertension type: unspecified Qualified Code(s): I10 - Essential (primary) hypertension Plan: stable; same rx Orders: Orders Thyroid Stimulating Hormone Today Z13.29 - Encounter for screening for other suspected endocrine disorder Lipid Panel Today Z13.220 - Encounter for screening for lipoid disorders
== END 2024-05-03 10:03 | disposition home or self-care (01) ==
PROVIDERS: PCP Internal Medicine; Visit Provider Internal Medicine
DX: Z01.818 Encounter for other preprocedural examination (principal); I82.90 Acute embolism and thrombosis of unspecified vein; E03.9 Hypothyroidism, unspecified; E78.5 Hyperlipidemia, unspecified; I10 Essential (primary) hypertension

== ENCOUNTER → 2024-05-03 09:38 | Outpatient (BNVA) | payer MEDICARE, SELFPAY | PROVIDERS: PCP Internal Medicine; Visit Provider Internal Medicine | DX: Z01.818 Encounter for other preprocedural examination (principal); E03.9 Hypothyroidism, unspecified; E78.5 Hyperlipidemia, unspecified; I10 Essential (primary) hypertension | CPT/HCPCS: 96127; 99212 ==

== ENCOUNTER 2024-05-10 06:17 | Day surgery (SDC) | payer MEDICARE, SELFPAY ==
--- NOTE | 2024-04-27 | ECG_ITS ---
Test Reason : PRE OP Blood Pressure : / mmHG Vent. Rate : 062 BPM Atrial Rate : 062 BPM P-R Int : 132 ms QRS Dur : 074 ms QT Int : 398 ms P-R-T Axes : 070 047 -09 degrees QTc Int : 403 ms Normal sinus rhythm with sinus arrhythmia ST & T wave abnormality, consider anterior ischemia Abnormal ECG No previous ECGs available Referred By: Ellen Posey Electronically Signed By:GUY RAM
[2024-04-27 10:04] VITALS: BP 161/69; PULSE 75; RESP 18; O2SAT 99; BMI 2043.1
[2024-05-10 06:46] VITALS: BMI 27.9
[2024-05-10] MEDS: methocarbamoL 750 MG TABLET PO (06:53)
[2024-05-10] MEDS: Gabapentin 300 MG CAPSULE PO (06:53)
[2024-05-10 06:57] VITALS: BP 135/69; PULSE 70; RESP 16; TEMP 36.7; O2SAT 99
[2024-05-10] MEDS: Lactated Ringers 1,000 ML 100 ML IVCONT (07:01)
--- NOTE | 2024-05-10 07:13 | MHC.SHP ---
Pre-Procedural Eval Section A - 24 Hr Update-Section A only Date of Service: 05/10/24 Section B - Complete if H&P > 30 days Chief Complaint: Spinal stenosis, site Allergies: Allergies Allergy/AdvReac Type Severity Reaction Status Date / Time Yhjohpz-ECC-IuE Reductase Allergy Unknown myalgia Verified 05/03/24 09:47 Inhibitor [Ebrwbkl-Hay-Tyx Reductase Inhibitor] Review of Systems Sugical H&P ROS: Negative: Constitution, Cardiovascular, Respiratory, Neurological, Psychiatric, Hem-Onc, Allergic/Immunologic, Gastrointestinal, Genitourinary, Musculoskeletal, Integumentary, Endocrine and Eyes/Ears/Nose/Throat Exam Surgical H&P Exam: Not Evaluated: HEENT, Not Evaluated: Heart, Not Evaluated: Lungs, Not Evaluated: Extremities, Not Evaluated: Abdomen, Not Evaluated: Skin and Not Evaluated: Neurological Exam Comment: Patient is awake, alert in no acute distress. Proposed surgical site is clean with no signs of recent trauma or surgery. Plan Diagnosis/Plan: Unchanged I have reviewed the history and physical and performed a pertinent physical examination on my patient. No changes have occurred unless specified. Plan remaisn the same, left L3-4, L4-5 lumbar decompression. Time Spent With Patient Time: Total time managing care of this patient today __15__ minutes.
--- NOTE | 2024-05-10 07:40 | P.CONAN_ITS ---
Documented by User: Ellen Posey NP 05/08/24 09:52 HPI - Anesthesia Eval Consult details Narrative: 74yo F for Left L3-4,L4-5 Lumbar Decompression, 05/10/24 Medically optimized per PCP. EKG changes nonspecific and minor No recent illness No CP/SOB with walking around house all day Eliquis for DVT (LLE ~ 2019) GERD: Ppi controls PMFSH Active Problems Active Problems: All Active Problems Encounter for initial annual wellness visit (AWV) in Medicare patient (Acute) Spinal stenosis (Acute) Venous thromboembolism (Acute) Leg edema, left (Acute) Hypothyroidism (Acute) UTI (urinary tract infection) (Acute) Screening for colon cancer (Acute) Adult general medical exam (Acute) GERD (gastroesophageal reflux disease) (Acute) Post-menopausal (Acute) Hyperlipidemia (Acute) Hypertension (Acute) Past Medical History Medical History (Updated 05/03/24 @ 10:10 by Tate Victor MD) DVT (deep venous thrombosis) GERD (gastroesophageal reflux disease) Numbness On anticoagulant therapy Post-menopausal Hyperlipidemia Hypertension Family History Family History Father CAD (coronary artery disease) Past heart attack Substance use disorder Mother Diabetes Sister Mitral valve prolapse Substance use disorder Family history of problems with anesthesia: No Surgical History Surgical History (Updated 04/27/24 @ 10:00 by Yvonne Argueta RN) Hx of tonsillectomy H/O colonoscopy History of inguinal hernia repair History of Problems with Anesthesia: No Social History Social History Housing: House Are you a primary care management specialist to a significant other at home: No Do you presently have visiting nurse or other home services: No Alcohol intake: never Patient Tobacco Use Status: Former Tobacco user Tobacco use type: Cigarette e-Cigarette/Vaping Use: Never Used Second Hand Smoke Exposure: No Use of substances other than those prescribed or required for medical reasons: No Have you been hit, kicked, punched, or otherwise hurt by someone within the past year? If so, by whom?: No Are you DNR?: No Advance Directives: No Advance Directives Information Provided: Yes Advance Directives on File: No Recently lost weight without trying: No Eating poorly because of decreased appetite: No Nutrition Risks: No Nutritional Risk Patient : No : No Poor oral hygiene: Yes (missing teeth) service: No Current occupational status: retired Cognitive needs: Yes (cane) Hearing needs: No Vision needs: Yes Meds Allergies Allergy/AdvReac Type Severity Reaction Status Date / Time Thvafpc-TZJ-TfN Reductase Allergy Unknown myalgia Verified 05/03/24 09:47 Inhibitor [Frxvrft-Vfi-Cxf Reductase Inhibitor] Home Medications ?Medication ?Instructions ?Recorded ?Confirmed ?Last Taken ?Type esomeprazole magnesium 20 mg 20 mg PO DAILY 05/28/20 05/10/24 05/10/24 History capsule,delayed release (Nexium 24HR) fenofibrate 54 mg tablet 54 mg PO BEDTIME 04/27/24 05/10/24 Unknown History levothyroxine 75 mcg tablet 75 mcg PO BEDTIME 04/27/24 05/10/24 Unknown History lisinopril 20 mg tablet 20 mg PO BEDTIME 04/27/24 05/10/24 Unknown History Exam Height,Weight and Vital Signs: Height 8 in Weight 84.368 kg Last Vital Signs Pulse 75 04/27/24 10:04 Resp 18 04/27/24 10:04 BP 161/69 H 04/27/24 10:04 Pulse Ox 99 04/27/24 10:04 O2 Del Method Room Air 04/27/24 10:04 Pertinent Lab Results Pertinent Lab Results: Laboratory Tests 01/18/24 04/27/24 06:35 09:18 WBC 4.7 L Hgb 13.7 Hct 42.6 Plt Count 175 Sodium 141 Potassium 4.4 Chloride 109 H Carbon Dioxide 24 BUN 27 H Creatinine 1.31 Narrative Narrative: EKG 04/2024 Vent. Rate : 062 BPM Atrial Rate : 062 BPM P-R Int : 132 ms QRS Dur : 074 ms QT Int : 398 ms P-R-T Axes : 070 047 -09 degrees QTc Int : 403 ms Normal sinus rhythm with sinus arrhythmia ST & T wave abnormality, consider anterior ischemia Abnormal ECG No previous ECGs available Airway Mallampati Class: II TM Dist: >3cm Neck ROM: Full Loose/Missing/Broken Teeth: Yes (Extracted molars) Heart: RRR Lungs: CTAB Assessment and Plan Assessment Anesthesia Assessment: Anesthesia Plan Discussed and PAT Visit Final Anesthetic Review Family History of Problems with Anesthesia: No History of Problems with Anesthesia: No Documented by User: Natalie Nicole DO 05/10/24 07:47 PMFSH Past Medical History Medical History (Updated 05/03/24 @ 10:10 by Tate Victor MD) DVT (deep venous thrombosis) GERD (gastroesophageal reflux disease) Numbness On anticoagulant therapy Post-menopausal Hyperlipidemia Hypertension Family History Family History Father CAD (coronary artery disease) Past heart attack Substance use disorder Mother Diabetes Sister Mitral valve prolapse Substance use disorder Family history of problems with anesthesia: No Surgical History Surgical History (Updated 04/27/24 @ 10:00 by Yvonne Argueta RN) Hx of tonsillectomy H/O colonoscopy History of inguinal hernia repair History of Problems with Anesthesia: No Social History Social History Housing: House Are you a primary care management specialist to a significant other at home: No Do you presently have visiting nurse or other home services: No Alcohol intake: never Patient Tobacco Use Status: Former Tobacco user Tobacco use type: Cigarette e-Cigarette/Vaping Use: Never Used Second Hand Smoke Exposure: No Use of substances other than those prescribed or required for medical reasons: No Have you been hit, kicked, punched, or otherwise hurt by someone within the past year? If so, by whom?: No Are you DNR?: No Advance Directives: No Advance Directives Information Provided: Yes Advance Directives on File: No Recently lost weight without trying: No Eating poorly because of decreased appetite: No Nutrition Risks: No Nutritional Risk Patient : No : No Poor oral hygiene: Yes (missing teeth) service: No Current occupational status: retired Cognitive needs: Yes (cane) Hearing needs: No Vision needs: Yes Meds Allergies Allergy/AdvReac Type Severity Reaction Status Date / Time Zsvlmqq-ZRG-QfA Reductase Allergy Unknown myalgia Verified 05/03/24 09:47 Inhibitor [Wxzmmew-Ras-Wme Reductase Inhibitor] Home Medications ?Medication ?Instructions ?Recorded ?Confirmed ?Last Taken ?Type esomeprazole magnesium 20 mg 20 mg PO DAILY 05/28/20 05/10/24 05/10/24 History capsule,delayed release (Nexium 24HR) fenofibrate 54 mg tablet 54 mg PO BEDTIME 04/27/24 05/10/24 Unknown History levothyroxine 75 mcg tablet 75 mcg PO BEDTIME 04/27/24 05/10/24 Unknown History lisinopril 20 mg tablet 20 mg PO BEDTIME 04/27/24 05/10/24 Unknown History Exam Exam Date and Time: 05/10/24 0740 Height,Weight and Vital Signs: Height 8 in Weight 84.368 kg Last Vital Signs Pulse 75 04/27/24 10:04 Resp 18 04/27/24 10:04 BP 161/69 H 04/27/24 10:04 Pulse Ox 99 04/27/24 10:04 O2 Del Method Room Air 04/27/24 10:04 Vital Signs Pulse Rate 75 04/27/24 10:04 Respiratory Rate 18 04/27/24 10:04 Blood Pressure 161/69 H 04/27/24 10:04 Pulse Oximetry 99 04/27/24 10:04 Oxygen Delivery Method Room Air 04/27/24 10:04 Temperature 98.0 F 05/10/24 06:57 Pulse Rate 70 05/10/24 06:57 Respiratory Rate 16 05/10/24 06:57 Blood Pressure 135/69 05/10/24 06:57 Pulse Oximetry 99 05/10/24 06:57 Oxygen Delivery Method Room Air 05/10/24 06:57 Airway Mallampati Class: II TM Dist: <=3cm Neck ROM: Full Loose/Missing/Broken Teeth: Yes (Extracted molars) Heart: S1S2 Assessment and Plan Assessment Anesthesia Assessment: Anesthesia Plan Discussed and Chart Reviewed Final Anesthetic Review Family History of Problems with Anesthesia: No History of Problems with Anesthesia: No NPO: Yes ASA Class: II Final Preanesthetic Review: No Changes in Pt Med Stat, Meds/Allgs Chart Reviewed, Consent Obtained/Reviewed and Anes Risks/Benef Reviewed Patient Risk: Low Procedure Risk: Intermediate Anesthetic Plan Anesthetic Plan: GA and Agree w/ Assess. and Plan Disposition: Standard PACU
--- NOTE | 2024-05-10 08:34 | P.DS_ITS ---
DS: Providers Provider Date of Service: 05/10/24 Primary care physician: Tate Victor MD DS: Summary Time Attestation Discharge Coordination Time (in mins): 14 Quality: Safe Use of Opioids Does Pt have an Active Cancer Diagnosis on the Problem List?: No Quality: Stroke Does the patient have a stroke diagnosis?: No Physical Exam Vital Signs: Vital Signs: Last Vital Signs Temp 98.0 F 05/10/24 06:57 Pulse 70 05/10/24 06:57 Resp 16 05/10/24 06:57 BP 135/69 05/10/24 06:57 Pulse Ox 99 05/10/24 06:57 O2 Del Method Room Air 05/10/24 06:57 BMI result Body Mass Index 27.9 Discharge Plan Discharge Patient Disposition: Home, Self-Care Referrals: Tate Victor MD [Primary Care Provider] - 1 Week Discharge Medications: New oxycodone 5 mg tablet 5 mg PO Q6H PRN (Reason: severe pain (scale score 7-10)) Qty: 30 0RF Rx Instructions: Partial Fill upon patient request. Continued Flonase Sensimist 27.5 mcg/actuation spray,suspension 1 spray intranasal DAILY Qty: 18.2 0RF Rx Instructions: into each nostril lisinopril 20 mg tablet 20 mg PO BEDTIME levothyroxine 75 mcg tablet 75 mcg PO BEDTIME fenofibrate 54 mg tablet 54 mg PO BEDTIME esomeprazole magnesium [Nexium 24HR] 20 mg capsule,delayed release(DR/EC) 20 mg PO DAILY Held oxycodone 5 mg tablet 5 mg PO Q6H PRN (Reason: pain) Qty: 20 0RF Hold Instructions: Resume on 05/24/24. take postop order Rx Instructions: Partial Fill upon patient request. apixaban 5 mg tablet 5 mg PO BID Qty: 180 3RF Hold Instructions: Resume on 05/15/24. Discharge Orders: Discharge Order (Routine); Ordered 05/10/24 Ordered By: Nomi Galan Activity Restrictions/Additional Instructions: Activity: It is normal to feel some discomfort as you increase your activity, but that will improve with time. We ask you avoid heavy lifting or acitivities that cause pain. As a general rule, 8lbs is a safe limit for lifting right after surgery. Walk as much as you feel comfortable but not to exhaustion. You will feel extra tired the first few days after surgery. Stay well hydrated. It is OK to walk up and down stairs You may return to driving when you are off narcotics (such as vicodin, oxycodone, dilaudid, etc), and you are back to normal functional capacity. If you have any concerns please check with office before driving. Return to work is specific to each patient and each surgery, so please speak with your doctor/PA at first follow up. Please bring paperwork such as FMLA at that time if you need it filled out. Medications: We recommend you take 1,000mg Tylenol every 8 hours for the first few weeks after surgery, if you do not have any liver issues and can tolerate this medication. Do not exceed 4,000mg daily. We will give you a short supply of narcotics after surgery (usually one weeks worth). If you need more please call the office but do not use more than prescribed. You will need to give our office 48 hours notice if you need narcotics refilled and we do not fill narcotics on weekends or evenings. If you are on a narcotic, it is a good idea to take a stool softener such as colace or senna to avoid constipation If you take blood thinner such as aspirin, Plavix, Coumadin, Effient, Eliquis etc for conditions such as Afib, DVT, Pulmonary embolus, coronary disease, stents etc please speak with your surgeon about specific details as to when you can resume these medications. Follow up: Please call the office, , after surgery to arrange a 3 week follow up for wound check. Wound Care: You may remove your dressing on the first day after surgery. ?You may ?leave open to air. Please do not remove the steri strips underneath. they will fall off on their own in one week. IT IS NORMAL FOR THE WOUND TO OOZE OR BE BLOODY FOR A FEW DAYS AFTER SURGERY. ?IF THIS HAPPENS JUST PLACE NEW DRESSING OVER IT TO AVOID STAINING CLOTHES. You may shower on post op day # 1 We ask that you do not let the water soak the wound. If it does get wet, just towel dry lightly. Please do not scrub your incision or place any type of chemical/ointment on the wound. No tub baths, pools or jacuzzis for one month. If you have any leaking or redness from your wound, or fevers, please call the office. Print Language: Sinhala Print Language: Sinhala
--- NOTE | 2024-05-10 09:51 | P.OP_ITS ---
Operative Note Operative Note Date of Service: 05/10/24 Narrative: Preoperative Diagnosis: L3-4 and L4-5 spinal stenosis/lateral recess stenosis/neural foraminal stenosis Operation: Left L3-4 and L4-5 Laminotomy, Partial facetectomy for bilateral decompression with use of microscope Consent Informed Consent was obtained for this operation. I have explained the nature, purpose and benefits of the operation. I have discussed the risks and benefit of the operation including possible complications or adverse events with patient/family. Alternative(s) were discussed with the patient with their relative benefits and risks as well as the consequences of not accepting the operation were included in obtaining consent. Surgeon: SUNIL GARZA MD, PHD Procedure Assisted By: Bandar Hamlin Description of Procedure This 74-year-old female has predominantly suffering from left lumbar radiculopathy. MRI shows severe spinal stenosis L3-4 and L4-5. The patient was offered a decompression. The procedure complications were explained. The patient was consented. The patient was brought to the operating room and endotracheally intubated. The patient was turned in prone position on the Boogie frame. Prep and drape was done followed by timeout. The Physician assistant professor of radiology provided access. A mid lumbar incision was made followed by release of the paravertebral muscle on the left side to expose the L3-4 and L4-5 lamina and facet joints. An intraoperative x-ray was obtained to confirm the correct level. The microscope was brought in. I took over the procedure. The high-speed drill was used to do a left L3-4 laminotomy until flavum ligament was reached. A #2 Kerrison was u sed to expand the laminotomy near flush to the pedicles and to include a partial facetectomy. The flavum ligament was opened and resected with a #3 Kerrison to decompress the underlying thecal sac. The flavum ligament was removed to decompress the lateral recess and the exiting L4 nerve rooty. A long nerve hook could be easily passed along the medial side of the pedicles as a sign of adequate decompression. The patient was turned contralaterally. The spinous process was undercut and then I removed more flavum ligament contralaterally to decompress that side. Then attention was turned to the L4-5 level. Similar procedure was done on the left side to decompress the exiting L5 nerve root. Severe compression was present. Again the patient was turned contralaterally with undercutting of the spinous process and decompression of the contralateral side. The microscope was removed. Hemostasis was done. The physician assistant professor of radiology close the Incision in 2 layers. Steri-Strips were used to approximate incision. An OpSite with Tegaderm was used to cover the incision. All sponge needle counts were correct. Patient was extubated and transported in stable is to recovery room. Anesthesia: General Estimated Blood Loss (ml): 25 Complications: None Duration of Surgery: Under 60 Minutes Postoperative Plan: Discharge to home
[2024-05-10 10:20] VITALS: BP 149/67; PULSE 107; RESP 12; TEMP 36.1; O2SAT 97
[2024-05-10 10:25] VITALS: BP 147/54; PULSE 105; RESP 12; O2SAT 96
[2024-05-10 10:30] VITALS: BP 141/60; PULSE 97; RESP 12; O2SAT 97
[2024-05-10 10:35] VITALS: BP 127/62; PULSE 103; RESP 14; O2SAT 97
[2024-05-10 10:50] VITALS: BP 135/58; PULSE 89; RESP 14; TEMP 36.1; O2SAT 99
[2024-05-10] MEDS: Ondansetron ODT 4 MG TAB.RAPDIS TRANSLINGU (11:43)
== END 2024-05-10 12:00 | disposition home or self-care (01) ==
PROVIDERS: PCP Internal Medicine; Visit Provider Neurological Surgery
PROC: (CPT 63047; principal; 2024-05-10 09:00)
DX: M48.061 Spinal stenosis, lumbar region without neurogenic claudication (principal); R20.0 Anesthesia of skin; R26.2 Difficulty in walking, not elsewhere classified; I10 Essential (primary) hypertension; E78.00 Pure hypercholesterolemia, unspecified; K21.9 Gastro-esophageal reflux disease without esophagitis; Z86.718 Personal history of other venous thrombosis and embolism; Z79.01 Long term (current) use of anticoagulants; Z79.899 Other long term (current) drug therapy; Z98.890 Other specified postprocedural states
CPT/HCPCS: 63047; 63048; 93005; J0131; J0690; J1171; J1885; J2003; J2250; J2371; J2704; J3010

== ENCOUNTER → 2024-05-10 06:17 | Outpatient (BNV) | payer MEDICARE, SELFPAY | PROVIDERS: PCP Internal Medicine; Visit Provider Neurological Surgery | DX: M48.062 Spinal stenosis, lumbar region with neurogenic claudication (principal) | CPT/HCPCS: 63047; 63048; 99499 ==

== ENCOUNTER 2024-05-31 09:49 | Outpatient (AMB) | payer MEDICARE, SELFPAY ==
--- NOTE | 2024-05-31 09:56 | A.SPINEOV_ITS ---
Intake Visit Reasons: 1st post op Intake Note: Ms. Portillo is here today for her 1st post op. 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 She is very satisfied with the surgery and is doing much better since her operation. She reports near complete resolution of her left lumbar radiculopathy. She reports that she is no longer ambulating with a cane an is able to ambulate independently. She has been completing the majority of her ADLs without issue. She asked several questions regarding the postoperative healing course all of which I answered to the best of my ability. No new neurological deficits. She ambulates well with out any assistive devices. Her posterior incision site appears closed and well healing. No signs of drainage. I would like to follow up with her in 6 weeks to ensure there incision is fully healed and she is continuing to do well. Nomi Maki MD,PhD [facility] Coding Level of Care Code Global (66757) Diagnoses Status post lumbar spine surgery for decompression of spinal cord Z98.890
== END 2024-05-31 10:10 | disposition home or self-care (01) ==
LOC: HO.HNS 09:49
PROVIDERS: PCP Internal Medicine; Visit Provider Physician Assistant
DX: Z98.890 Other specified postprocedural states (principal)
CPT/HCPCS: 99024

== ENCOUNTER → 2024-05-31 09:49 | Outpatient (BNVA) | payer MEDICARE, SELFPAY | PROVIDERS: PCP Internal Medicine; Visit Provider Physician Assistant | DX: Z47.89 Encounter for other orthopedic aftercare (principal); Z98.890 Other specified postprocedural states | CPT/HCPCS: 99212 ==

== ENCOUNTER 2024-07-12 09:51 | Outpatient (AMB) | payer MEDICARE, SELFPAY ==
--- NOTE | 2024-07-12 09:40 | A.SPINEOV_ITS ---
Intake Visit Reasons: 2nd post op Intake Note: Ms. Portillo is here for her 2nd post op. Linen Attendant Required: No Allergies Pcgdvoh-YDI-QfA Reductase Inhibitor [Valaccs-Dnj-Agw Reductase Inhibitor] Allergy (Unknown, Verified 05/31/24 09:57) myalgia Assessment & Plan Assessment & Plan (1) Status post lumbar spine surgery for decompression of spinal cord: Code(s): Z98.890 - Other specified postprocedural states Category: Medical Plan Operation: Left L3-4 and L4-5 Laminotomy, Partial facetectomy for bilateral decompression Miranda is a pleasant 74 year old female who comes in today for her 2nd postoperative visit. She reported during her last visit that since her surgery she has had complete resolution of her left leg pain. She was ambulating without a cane and otherwise doing well. Today, she states that she has had some flare- ups of pain in the last few weeks. Her left-sided radiculopathy as intermittently came back if pushing herself in regards to activity. Overall, she still remains satisfied with the surgery, and we discussed the postoperative healing course. No new neurological deficits. Patient is able to ambulate well, rises from a seated position without difficulty. Posterior incision site is closed, well healing, with no signs of drainage. I would like to have Miranda obtain a set of lumbar x-rays. She is busy today and unable to get them done after this visit but will come in the next couple of weeks to get them done. This is more of a precautionary measure just to make sure she has no instability as a result of her decompression. Other than that, she is cleared to return to normal activity as tolerated incrementally. Nomi Maki MD,PhD [facility] Coding Level of Care Code Global (00204) Diagnoses Status post lumbar spine surgery for decompression of spinal cord Z98.890
== END 2024-07-12 10:58 | disposition home or self-care (01) ==
PROVIDERS: PCP Internal Medicine; Visit Provider Physician Assistant
DX: Z98.890 Other specified postprocedural states (principal)
CPT/HCPCS: 99024

== ENCOUNTER 2024-07-12 09:51 | Outpatient (REF) | payer MEDICARE, SELFPAY | END 2024-07-12 09:52 | disposition home or self-care (01) | LOC: HO.HOSX 09:51 | PROVIDERS: PCP Internal Medicine; Visit Provider Physician Assistant | DX: Z98.890 Other specified postprocedural states (principal) | CPT/HCPCS: 99212 ==

== ENCOUNTER 2024-10-24 06:03 | Outpatient (REF) | payer MEDICARE, SELFPAY ==
[2024-10-24 11:19] LABS: Cholesterol 192 mg/dL (<200); HDL Cholesterol 63 mg/dL (>40); LDL Cholesterol Calculated 106 mg/dL (<100); Triglycerides 115 mg/dL (<150)
[2024-10-24 11:36] LABS: Thyroid Stimulating Hormone 1.07 uIU/mL (0.32-4.0)
== END 2024-10-24 06:04 | disposition home or self-care (01) ==
LOC: HO.HMGCLDS 06:03
PROVIDERS: Visit Provider Internal Medicine
DX: Z13.29 Encounter for screening for other suspected endocrine disorder (principal); Z13.220 Encounter for screening for lipoid disorders
CPT/HCPCS: 36415; 80061; 84443

== ENCOUNTER 2024-11-15 09:15 | Outpatient (AMB) | payer MEDICARE, SELFPAY ==
--- NOTE | 2024-11-15 09:40 | MHC.PC.OV ---
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 Accompanied by: Self / Same As Patient Allergies Zotlzpx-ZIX-KcP Reductase Inhibitor [Hqxhgnm-Klk-Ygv Reductase Inhibitor] Allergy (Unknown, Verified 11/15/24 09:58) myalgia Medication List - Last Reconciled 11/15/24 by Hali Wilson PA-C apixaban 5 mg PO BID esomeprazole magnesium (Nexium 24HR) 20 mg PO DAILY fenofibrate 54 mg PO BEDTIME fluticasone furoate 27.5 mcg/actuation (Flonase Sensimist) 1 spray intranasal DAILY levothyroxine 75 mcg PO BEDTIME lisinopril 20 mg PO BEDTIME oxycodone 5 mg PO Q6H PRN oxycodone 5 mg PO Q6H PRN Tobacco use date assessed: 11/15/24 Fall risk assessment: No Falls in past year Last assessed Fall Risk: 11/15/24 Dental Screening Dental Screen Date: 11/15/24 Did you have a dental visit in the last 12 months?: Yes Did you have a dental problem in the last 6 months where you did not have access to dental care?: No Was dental information given to patient?: Patient has dentist HPI FOLLOW UP HPI Details 74-year-old female with past medical history of hypertension, hyperlipidemia, GERD, hypothyroidism last seen by Dr. Victor 04/2024 coming in for follow up.?In review of the notes, patient was seen by spine clinic 06/2024 s/p left L3-L4 and L4-5 laminotomy, partial facetectomy for bilateral decompression overall doing well and cleared to return back to normal activity. Presenting with urinary tract infection. Currently experiencing signs of a urinary tract infection, including increased frequency and urgency of urination and dysuria that started 2-3 days ago. She reported occasional low back pain which increases with physical activity but no associated fever. She has a documented history of hyperlipidemia, managed with fenofibrate since she is allergic to statins, with improved cholesterol levels most recently documented at 106 mg/dL. Chronic back pain showed improvement post-operatively and she is mobile without assistance. She started experiencing nocturnal leg cramps and cold sensitivity following surgery, with no underlying cause identified yet. She does endorse decreased water intake and drinks about 2 glasses of water a day. [facility] Medical History DVT (deep venous thrombosis) GERD (gastroesophageal reflux disease) Numbness On anticoagulant therapy Post-menopausal Hyperlipidemia Hypertension Surgical History Hx of tonsillectomy H/O colonoscopy History of inguinal hernia repair Family History Father CAD (coronary artery disease) Past heart attack Substance use disorder Mother Diabetes Sister Mitral valve prolapse Substance use disorder Social History Housing: House Are you a primary hospice care sales consultant to a significant other at home: No Do you presently have visiting nurse or other home services: No Alcohol intake: never Patient Tobacco Use Status: Former Tobacco user Tobacco use type: Cigarette Years Smoked: 1990 quit e-Cigarette/Vaping Use: Never Used Second Hand Smoke Exposure: No service: No Current occupational status: retired Cognitive needs: Yes (cane) Hearing needs: No Vision needs: Yes (Reading glasses) Questionnaire Thrive Questionnaire Date Thrive assessed: 11/15/24 I am a: Patient What is your living situation today?: I have a steady place to live Within the past 12 months, did the food you bought not last and you didn't have the money to get more?: Never true Within the past 12 months, did you worry whether your food would run out before you got money to buy more?: Never true Do you have trouble paying for medicines?: No Do you have trouble getting transportation to medical appointments?: No Do you have trouble paying your heating and electricity bill?: No Do you have trouble taking care of your child, family member or friend?: No Do you have trouble with day-to-day activities such as bathing, preparing meals, shopping, managing finances, etc.?: No Are you currently unemployed and looking for a job?: No Are you interested in more education?: No Please select the resources that you would like help with: None Currently or been in a relationship where the following occur: No concerns reported THRIVE Score: 0 AUDIT C Alcohol Use Questionnaire (AUDIT-C) 1. How often do you have a drink containing alcohol?: Never 3. How often do you have six or more drinks on one occasion?: Never Total Score: 0 Score Reviewed/Action Taken: No LUCIA-7 AMB Questionnaire LUCIA-7 Date LUCIA - 7 assessed: 02/13/24 Source: Developed by Drs. Harvinder Linton, Patrica Avilez, Jorge Dixon and colleagues, with an educational martha from [employer]. Review of Systems Const Denies body aches, Denies chills, Denies fever(s), Denies headache(s) and Denies poor appetite Eyes Reports no additional complaints ENT Denies dizziness and Denies headache(s) Card Denies chest pain and Denies dyspnea Resp Denies cough and Denies dyspnea GI Denies abdominal pain, Denies nausea and Denies vomiting Reports as per HPI Musc Reports no additional complaints and Denies abnormal gait Skin/Breast Reports system reviewed and no additional complaints, except as documented Neuro Denies abnormal gait, Denies dizziness and Denies headache(s) Psych Reports no additional complaints Physical exam (Primary Care) Vital Signs: Last Vital Signs Temp 97.3 F 11/15/24 09:41 Pulse 86 11/15/24 09:41 Resp 18 11/15/24 09:41 BP 132/76 11/15/24 09:41 Pulse Ox 98 11/15/24 09:41 Oxygen Delivery Method Room Air 11/15/24 09:41 BMI result Body Mass Index 27.8 Tobacco/Smoking Status: Tobacco use Status Tobacco use date assessed 11/15/24 11/15/24 09:45 Patient Tobacco Use Status Former Tobacco user 11/15/24 09:42 Tobacco use type Cigarette 11/15/24 09:42 e-Cigarette/Vaping Use Never Used 11/15/24 09:42 Thrive Assessment: Date of Thrive Assessment Date Thrive assessed 11/15/24 11/15/24 09:45 Currently or been in a relationship where the following occur: No concerns reported Const General: cooperative, healthy appearing, comfortable and no acute distress Orientation/consciousness: patient oriented x3 HENMT Head: Yes normocephalic Ears: hearing grossly normal bilaterally General nose exam: Normal external nose present Eyes General: appearance normal, both eyes and all related structures Conjunctivae: conjunctivae normal Neck Neck: Yes full ROM and Yes no lymphadenopathy Resp Effort & Inspection: normal respiratory effort Auscultation: clear to auscultation bilaterally, no crackles, no rales, no rhonchi and no wheezes Cardio Rate: regular rate Rhythm: regular rhythm GI Palpation (GI): Soft to palpation, not firm, nontender, no guarding, not rigid and No Rebound tenderness present General: Yes no CVA tenderness Back/Spine/Pelvis Back: no CVA tenderness Skin General skin exam: no rashes or lesions noted Neuro General: patient oriented x3 Gait exam (Neuro): Normal gait present Extrem General: Yes normal to inspection, Yes full ROM and No edema Psych Affect: normal affect Attitude: cooperative Insight: Good insight present (Psych) Judgement: Good judgement present (Psych) Results AMB Urinalysis Dipstick UR Leukocytes Moderate Last Edit by Maria E Martin CMA on 11/15/24 10:23 UR Nitrite Negative Last Edit by Maria E Martin CMA on 11/15/24 10:23 UR Urobilinogen Normal Last Edit by Maria E Martin CMA on 11/15/24 10:23 UR Protein Negative Last Edit by Maria E Martin CMA on 11/15/24 10:23 UR Ph 6.0 Last Edit by Maria E Martin CMA on 11/15/24 10:23 UR Blood Negative Last Edit by Maria E Martin CMA on 11/15/24 10:23 UR Specific [place] 1.025 Last Edit by Maria E Martin CMA on 11/15/24 10:23 UR Ketone Negative Last Edit by Maria E Martin CMA on 11/15/24 10:23 UR Bilirubin Negative Last Edit by Maria E Martin CMA on 11/15/24 10:23 UR Glucose Negative Last Edit by Maria E Martin CMA on 11/15/24 10:23 Coding Level of Care Code Est Pt Level 4 (51736) Diagnoses Hypertension, unspecified type I10 Hypertension type: unspecified Hyperlipidemia, unspecified hyperlipidemia type E78.5 Hyperlipidemia type: unspecified GERD (gastroesophageal reflux disease) K21.9 Hypothyroidism E03.9 Status post lumbar spine surgery for decompression of spinal cord Z98.890 Venous thromboembolism I82.90 Bilateral leg cramps R25.2 UTI (urinary tract infection) N39.0 Assessment & Plan Assessment & Plan (1) Hypertension: Code(s): I10 - Essential (primary) hypertension Category: Medical Qualifiers: Hypertension type: unspecified Qualified Code(s): I10 - Essential (primary) hypertension Plan: Continue on current blood pressure medication. Avoid salt intake and encourage healthy diet and regular exercise. (2) Hyperlipidemia: Code(s): E78.5 - Hyperlipidemia, unspecified Category: Medical Qualifiers: Hyperlipidemia type: unspecified Qualified Code(s): E78.5 - Hyperlipidemia, unspecified Plan: Avoid foods that are high in cholesterol such as red meat, fried foods, eggs and baked goods. Triglyceride goal of less than 150 and LDL goal of less than 130. (3) GERD (gastroesophageal reflux disease): Code(s): K21.9 - Gastro-esophageal reflux disease without esophagitis Category: Medical Plan: Avoid trigger foods such as citrus, tomato products, soda, caffeine, spicy foods and other foods that may be irritating to your stomach. Avoid laying flat 3-4 hours after eating and elevate the head of the bed 30 degrees to prevent acid from moving into the esophagus. Continue on Nexium (4) Hypothyroidism: Code(s): E03.9 - Hypothyroidism, unspecified Category: Medical Plan: Last several TSH has been within normal limits continue on levothyroxine 75 mcg and plan to repeat blood work before next visit. (5) Status post lumbar spine surgery for decompression of spinal cord: Code(s): Z98.890 - Other specified postprocedural states Category: Surgical Plan: Patient has been doing well postoperatively states her symptoms have been improving. Advised patient to Continue to monitor her symptoms at this time and follow up with spinal center as needed (6) Venous thromboembolism: Code(s): I82.90 - Acute embolism and thrombosis of unspecified vein Category: Medical Plan: Patient having history of DVT 10/2022. She is unsure of how long she should be on the apixaban for. In reviewing the past notes looks to be unprovoked DVT recommending apixaban indefinitely however plan to obtain risk stratification through hematology. (7) Bilateral leg cramps: Code(s): R25.2 - Cramp and spasm Category: Medical Plan: Patient complaining of nocturnal leg cramping denies any cramping throughout the day denies any swelling, redness or warmth of bilateral lower extremities. Low concern for DVT at this time as patient is not exhibiting typical symptoms and is currently on anticoagulant. Recommend increasing water intake and adding magnesium supplement. (8) UTI (urinary tract infection): Code(s): N39.0 - Urinary tract infection, site not specified Category: Medical Plan: Patient having a urinary tract infection as evidenced by leukocytes in the urine today. Plan to initiate Macrobid as this has worked in the past for her. Plan to obtain culture to further direct antibiotic treatment. Plan I will conduct a urinalysis and culture as indicated for the urinary tract infection and provide an antibiotic prescription to begin treatment immediately. For hyperlipidemia, ongoing management with fenofibrate is indicated, given its effectiveness and the patient's statin allergy. I advise increased hydration to address leg cramps, along with magnesium supplementation. A referral to hematology is essential to evaluate the need for anticoagulation due to her DVT history. GERD management remains as is with Nexium, and thyroid function continues to be monitored due to stable lab results. Regular follow-up is scheduled for further assessments. This note was constructed using voice recognition software. While every effort has been made to ensure accuracy and rail car repairman, still areas may have been included sometimes these areas may affect the content or meeting of the given symptoms. Total time spent caring for the patient today was 30 minutes. This includes time spent before the visit reviewing the chart, time spent during the visit, and time spent after the visit and documentation. Patient was informed and verbally consented to the use of an ambient scribe for clinic note documentation during this visit. Orders: Orders AMB Urinalysis Dipstick Today Z13.9 - Encounter for screening, unspecified UA CC w/rflx Micro + Cult Today N39.0 - Urinary tract infection, site not specified Referrals Hematology & Oncology Referral I82.90 - Acute embolism and thrombosis of unspecified vein Medications: New nitrofurantoin monohyd/m-cryst 100 mg must administer with a meal/food 100 mg PO Q12H 7 days 14 caps 0RF Discontinued oxycodone Partial Fill upon patient request. Discontinued Reason: Patient no longer taking 5 mg PO Q6H PRN 30 tabs 0RF severe pain (scale score 7-10) oxycodone Partial Fill upon patient request. Discontinued Reason: Patient no longer taking 5 mg PO Q6H PRN 20 tabs 0RF pain
[2024-11-15 09:41] VITALS: BP 132/76; PULSE 86; RESP 18; TEMP 36.3; O2SAT 98; BMI 27.8
== END 2024-11-15 10:21 | disposition home or self-care (01) ==
DX: I10 Essential (primary) hypertension (principal); E78.5 Hyperlipidemia, unspecified; K21.9 Gastro-esophageal reflux disease without esophagitis; E03.9 Hypothyroidism, unspecified; Z98.890 Other specified postprocedural states; I82.90 Acute embolism and thrombosis of unspecified vein; R25.2 Cramp and spasm; N39.0 Urinary tract infection, site not specified; Z13.9 Encounter for screening, unspecified

== ENCOUNTER 2024-11-15 09:15 | Outpatient (REF) | payer MEDICARE, SELFPAY ==
[2024-11-15 16:17] LABS: Appearance Urine Clear; Color Urine Yellow; Glucose Urine UA Negative (Negative); Leukocyte Esterase Urine Moderate (2+) (Negative); Nitrite Urine Negative (Negative); PH 5.5 (5.0-9.0); UMIC TRIGGER UACC YES; Urine Blood Negative (Negative); Urine Ketones Negative (Negative); Urine Protein Negative (Neg-Trace)
[2024-11-15 16:20] LABS: Bacteria Urine 3+ (None Seen); Hyaline Casts Urine 0-2 /LPF (0-2); RBC Urine 0-2 /HPF (0-2); UACC Culture Trigger YES; WBC Urine 21-50 /HPF (0-5)
== END 2024-11-15 09:16 | disposition home or self-care (01) ==
LOC: HO.LAB 09:15
PROVIDERS: PCP Internal Medicine
DX: I10 Essential (primary) hypertension (principal); E78.5 Hyperlipidemia, unspecified; K21.9 Gastro-esophageal reflux disease without esophagitis; E03.9 Hypothyroidism, unspecified; R25.2 Cramp and spasm; N39.0 Urinary tract infection, site not specified; Z86.718 Personal history of other venous thrombosis and embolism; Z79.01 Long term (current) use of anticoagulants
CPT/HCPCS: 81001; 81002; 81003; 87086; 87088; 87186; 99212

== ENCOUNTER → 2024-12-14 10:12 | Outpatient (BNV) | payer MEDICARE, SELFPAY | PROVIDERS: Visit Provider Internal Medicine Medical Oncology | DX: I82.402 Acute embolism and thrombosis of unspecified deep veins of left lower extremity (principal) | CPT/HCPCS: 99204 ==

== ENCOUNTER 2025-01-22 11:54 | Outpatient (REF) | payer MEDICARE, SELFPAY ==
--- NOTE | ~2025-01-22 | US_ITS ---
EXAMINATION: US TRIPLEX LOWER EXTREMITY, LEFT CLINICAL INFORMATION: History of DVT. Pain. COMPARISON: October 27, 2022. TECHNIQUE: Color-flow triplex imaging with spectral analysis and compression Doppler were performed on the left lower extremity. FINDINGS: Respiratory variation, normal compression and augmented flow are present in the interrogated left common femoral vein, superficial femoral vein, profunda femoral vein, popliteal vein and midcalf peroneal venous segments. There is partial compressibility in the left posterior tibialis vein. There is no Arana's cyst. US/US venous duplex LE LT IMPRESSION: No acute deep venous thrombosis interrogated veins, left lower extremity. Negative for acute DVT. 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 Electronically signed by: Constantin Mosher MD 01/22/2025 12:49 PM EDT
== END 2025-01-22 11:55 | disposition home or self-care (01) ==
LOC: HO.US 11:54
PROVIDERS: Visit Provider Internal Medicine Medical Oncology
DX: I82.492 Acute embolism and thrombosis of other specified deep vein of left lower extremity (principal)
CPT/HCPCS: 93971

== ENCOUNTER → 2025-01-22 11:58 | Outpatient (BNV) | payer MEDICARE, SELFPAY | PROVIDERS: Visit Provider Radiology Diagnostic Radiology | DX: I82.542 Chronic embolism and thrombosis of left tibial vein (principal) | CPT/HCPCS: 93971 ==

== ENCOUNTER 2025-02-24 08:49 | Emergency (ER) | payer MEDICARE, SELFPAY ==
--- NOTE | ~2025-02-24 | US_ITS ---
CLINICAL HISTORY: increasing LLE pain r o DVT Venous duplex ultrasound left lower extremity Comparison: US/SR - US LOWER EXTREMITY VEINS LIMITED FOLLOW UP LEFT - 01/22/25 12:03 EDT Findings: The visualized deep veins are fully compressible with normal Doppler color flow and spectral tracings. No popliteal cyst. IMPRESSION: 1. Negative for left lower extremity deep vein thrombosis. This document has been electronically signed by: Anmol Byers MD on 02/24/2025 11:02:16
--- NOTE | ~2025-02-24 | CT_ITS ---
CLINICAL HISTORY: LLB pain w rad down left LE --- Additional Notes or Special Instructions: hx laminectomy CT lumbar spine without contrast Comparison: None provided Findings: Vertebral alignment is within normal limits. No acute fractures or dislocations. Moderate multilevel degenerative change with disc space narrowing, endplate sclerosis and marginal osteophyte formation. There is facet hypertrophy within the lower lumbar spine. There is severe central canal stenosis at L2-L3. Reference axial 56. There is moderately severe central canal stenosis at L3-L4, reference axial 73. Moderately severe central canal stenosis at L4-L5, reference axial 89. Retroperitoneum demonstrates atherosclerotic disease, severe. Impression: Moderately severe lumbar spondylosis with multilevel central canal stenosis. This document has been electronically signed by: Anmol Byers MD on 02/24/2025 10:42:57
[2025-02-24 08:52] VITALS: BP 163/74; PULSE 80; RESP 19; TEMP 36.6; O2SAT 98; BMI 28.1
--- NOTE | 2025-02-24 09:09 | ED.LOWEXIN ---
HPI - Extremity Injury (Lower) General Chief Complaint: Extremity Injury, Lower Stated Complaint: Left leg not working , swelling Time Seen by Provider: 02/24/25 09:08 Source: patient Mode of arrival: ambulatory Limitations: no limitations History of Present Illness ED Provider: SHANEKA FARMER PA-C HPI Narrative: 75 year old female with pmhx significant for HN, HLD, hypothyroidism, DVT on Eliquis, spinal stenosis, sciatica presents to the ED today for evaluation of left leg pain x2 weeks. Patient has history of provoked left lower extremity DVT following a flight in 2022. She has been on Eliquis since. She had a venous duplex of her left lower extremity performed on 01/22/2025 (1 mo ago) which did not demonstrate any acute DVT. She has a follow up scheduled with her network control operator this week to discuss discontinuing her anticoagulation. Reports increasing LLE pain extending from left lower back down into her toes. Associated intermittent tingling down the LE. No numbness. She reports history of sciatica. She follows with Dr. Maki outpatient and is s/p L3/L4 and L4/L5 laminotomy with partial facetectomy for b/l decompression in 04/2024. Related Data Home Medications ?Medication ?Instructions ?Recorded ?Confirmed esomeprazole magnesium 20 mg 20 mg PO DAILY 05/28/20 11/15/24 capsule,delayed release (Nexium 24HR) magnesium 250 mg tablet 250 mg PO DAILY 12/14/24 12/14/24 Previous Rx's ?Medication ?Instructions ?Recorded fluticasone furoate 27.5 1 spray intranasal DAILY #18.2 mL 01/18/24 mcg/actuation nasal spray,suspension (Flonase Sensimist) levothyroxine 75 mcg tablet 75 mcg PO BEDTIME #100 tabs 07/26/24 apixaban 5 mg tablet 5 mg PO BID #180 tabs 08/30/24 fenofibrate 54 mg tablet 54 mg PO BEDTIME #90 tabs 09/24/24 lisinopril 20 mg tablet 20 mg PO BEDTIME #100 tabs 09/24/24 nitrofurantoin 100 mg PO Q12H 7 days #14 caps 11/15/24 monohydrate/macrocrystals 100 mg capsule apixaban 2.5 mg tablet (Eliquis) 2.5 mg PO BID #60 tabs 12/14/24 baclofen 5 mg tablet 2.5 mg (1/2 x 5 mg) PO Q8H PRN 02/24/25 muscle pain #10 tabs lidocaine 5 % topical patch 1 patch topical DAILY #15 ea 02/24/25 (Lidoderm) Allergies Allergy/AdvReac Type Severity Reaction Status Date / Time Myfwkbu-ZEN-OyW Reductase Allergy Unknown myalgia Verified 02/24/25 08:53 Inhibitor (Imimkmn-Sta-Jyp Reductase Inhibitor) Review of Systems Review of Systems: Yes all other systems are reviewed and are negative [facility] Past Medical History Attestation statement: The following information was validated with the patient. Source: old records reviewed and nursing notes reviewed Medical History DVT (deep venous thrombosis) GERD (gastroesophageal reflux disease) Numbness On anticoagulant therapy Post-menopausal Hyperlipidemia Hypertension Surgical History Hx of tonsillectomy H/O colonoscopy History of inguinal hernia repair Family History Family History Father CAD (coronary artery disease) Past heart attack Substance use disorder Mother Diabetes Sister Mitral valve prolapse Substance use disorder Social History Social History Household Members: Children Housing: House Are you a primary critical care physician assistant to a significant other at home: No Do you presently have visiting nurse or other home services: No Alcohol intake: current Alcohol intake frequency: a few times a month Alcohol type: hard liquor Patient Tobacco Use Status: Former Tobacco user Tobacco use type: Cigarette Years Smoked: 1990 quit Smoked in Last 30 Days: No e-Cigarette/Vaping Use: Never Used Second Hand Smoke Exposure: No Use of substances other than those prescribed or required for medical reasons: No Advance Directives: Yes Advance Directives Information Provided: No Advance Directives on File: No Do you have a plan to hurt others: No Plan service: No Current occupational status: retired Cognitive needs: Yes (cane) Hearing needs: No Vision needs: Yes (Reading glasses) Physical Exam Vital Signs: Vital Signs: Last Vital Signs Temp 98 F 02/24/25 09:12 Pulse 80 02/24/25 09:12 Resp 19 02/24/25 09:12 BP 163/74 H 02/24/25 09:12 Pulse Ox 98 02/24/25 09:12 O2 Del Method Room Air 02/24/25 09:12 BMI result Body Mass Index 28.1 hypertensive, vitals are otherwise wnl General: Well appearing, in no acute distress. Skin: Warm, dry, intact. No rashes or lesions. Head: Normocephalic, atraumatic. EENT: Hearing is intact b/l. Conjunctiva clear. PERRLA. EOM intact. Moist mucous membranes.? Neck: Supple without LAD Cardiac: Chest wall symmetric. RRR Lungs: Normal respiratory effort without accessory muscle use. CTA bilaterally. Back: +no midline spinous tenderness or step-off deformity. Ext: +no noted swelling to left lower extremity. No overlying skin changes, erythema, ecchymoses. Full ROM intact to left hip, left knee and left ankle. positive straight leg raise on left. strength 5/5. No noted tenderness over left hip/thigh. No calf tenderness. no pitting edema. Sensation intact to light touch throughout. 2+ PT/DP pulse intact. Extremity warm. ambulating with steady gait. Neuro: AOx3. Normal speech. Course Course Course Narrative: CBC without leukocytosis or left shift. No anemia. H&H stable. Chemistry without acute electrolyte abnormality requiring intervention. Mild MINERVA, likely dehydrated. Liver function WNL. Venous duplex of left lower extremity is negative for DVT. No popliteal cyst. CT lumbar spine showing moderately severe lumbar spondylosis with multilevel central canal stenosis, consistent with findings on lumbar spine MRI from 03/05/2024. > patient's physical exam is benign. On re-evaluation, patient reports pain improvement from 8/10 to 2/10 after receiving IV Tylenol. She feels well. Discussed treatment options for lumbar radiculopathy. She states that she has tried oxycodone in the past without improvement. Discussed possibly trialing baclofen with lidocaine patches. She is agreeable. I discussed the importance of touching base with her neuro spine surgeon dr. maki to discuss further management. She verbalizes understanding. Discussed strict return precautions. Patient has remained stable throughout ED visit today. Discussed worrisome signs and symptoms and when to return to the ED. All questions answered at this time. Patient is agreeable with disposition and stable for discharge. Medications Administered Discontinued Medications Generic Name Dose Route Start Last Admin Trade Name Alexandrea PRN Reason Stop Dose Admin Sodium Chloride 1,000 mls @ 999 mls/hr 02/24/25 10:15 02/24/25 11:45 Ns IV 02/24/25 11:15 Infused .Q1H1M LUIS ENRIQUE Infusion Acetaminophen 1,000 mg in 100 mls @ 400 mls/hr 02/24/25 10:02 02/24/25 11:45 Ofirmev IV 02/24/25 10:16 Infused ONCE ONE Infusion Medical Decision Making Medical Decision Making MDM Narrative: 75 year old female with pmhx significant for HN, HLD, hypothyroidism, DVT on Eliquis, spinal stenosis, sciatica presents to the ED today for evaluation of left leg pain x2 weeks. On exam, there is no midline spinous tenderness or step-off deformity. on exam of LLE, no noted swelling or overlying skin changes, erythema, ecchymoses. Full ROM intact to left hip, left knee and left ankle. positive straight leg raise on left. strength 5/5. No noted tenderness over left hip/thigh. No calf tenderness. no pitting edema. Sensation intact to light touch throughout. 2+ PT/DP pulse intact. Extremity warm. ambulating with steady gait. Differential diagnosis includes anemia, electrolyte abnormality, dehydration, muscle cramps, muscle spasms, DVT, lumbar radiculopathy, sciatica, arthritis. Presentation not consistent with a UTI, renal colic, nephrolithiasis. Unlikely cauda equina, Guillain-Parksley, epidural abscess, cord compression. Plan for labs, imaging, pain control and re-evaluation. Differential Diagnosis Differential Diagnoses: The differential diagnosis associated with the presentation includes as above. Admission/Observation Not indicated Lab Data [facility] Lab Attestation statement: I reviewed the patient's lab results. As above 02/24/25 09:30 02/24/25 09:30 Labs: Lab Results 02/24/25 Range/Units 09:30 WBC 7.1 (4.8-10.8) X10*3/uL RBC 4.53 (4.20-5.50) X10*6/uL Hgb 14.3 (12.0-16.0) g/dl Hct 42.1 (37.0-47.0) % MCV 92.9 (80.0-98.0) fL MCH 31.6 (27.0-33.0) pg MCHC 34.0 (31.0-35.0) g/dl RDW 13.2 (11.0-16.0) % Plt Count 166 (160-400) X10*3/uL MPV 10.4 (9.4-12.3) fL Immature Gran % (Auto) 0.1 (0.0-0.4) % Neut % (Auto) 64.7 (45-73) % Lymph % (Auto) 26.1 (20-40) % [place] % (Auto) 6.4 (2-11) % Eos % (Auto) 2.0 (0-4) % Baso % (Auto) 0.7 (0-2) % Lymph # (Auto) 1.9 (1.2-4.9) X10*3/uL [place] # (Auto) 0.5 (0.1-1.2) X10*3/uL Eos # (Auto) 0.1 (0.0-0.4) X10*3/uL Baso # (Auto) 0.1 (0.0-0.2) X10*3/uL Abs Immat Gran (auto) 0.01 (0.00-0.03) X10*3/uL Absolute Neuts (auto) 4.6 (2.0-8.3) x10*3/uL Absolute Nucleated RBC 0.000 (0.0-0.012) X10*3/uL Nucleated RBC % (auto) 0.0 (0.0-0.2) /100WBC PT 12.1 (10.9-12.4) SEC INR 1.1 (0.9-1.1) Sodium 140 (135-145) mmol/L Potassium 4.8 (3.3-5.1) mmol/L Chloride 108 (96-108) mmol/L Carbon Dioxide 23 (22-29) mmol/L Anion Gap 14 (12-20) BUN 37 H (9-16) mg/dL Creatinine 1.61 H (0.5-1.4) mg/dL Estim Creat Clear Calc 33.7 Estimated GFR 31 Random Glucose 107 (60-115) mg/dL Calcium 9.7 (8.4-10.2) mg/dL Total Bilirubin 0.3 (0.0-1.0) mg/dL AST 28 (5-31) U/L ALT 17 (0-31) U/L Alkaline Phosphatase 57 (39-117) U/L Total Protein 8.2 H (6.5-8.0) g/dL Albumin 4.3 (3.5-5.0) g/dL Independent Interpretation I performed an independent interpretation of an: Ultrasound and CT Scan Interpretation: LLE venous duplex without DVT CT lumbar spine without compression fracture Radiology Impression Discussion of test interpretation with radiology: I have reviewed the radiologist's reading. Radiologist Impression: Date of Service: 02/24/25 Procedure(s): US venous duplex LE LT Accession Number(s): [id number] cc: Hali Wilson PA-C; Shaneka Farmer~ CLINICAL HISTORY: increasing LLE pain r o DVT Venous duplex ultrasound left lower extremity Comparison: US/SR - US LOWER EXTREMITY VEINS LIMITED FOLLOW UP LEFT - 01/22/25 12:03 EDT Findings: The visualized deep veins are fully compressible with normal Doppler color flow and spectral tracings. No popliteal cyst. IMPRESSION: 1. Negative for left lower extremity deep vein thrombosis. Date of Service: 02/24/25 Procedure(s): CT lumbar spine wo IV con Accession Number(s): [id number] cc: Hali Wilson PA-C; Shaneka Farmer~ Report Number: [id number]: Total DLP = 614.00 mGy-cm CLINICAL HISTORY: LLB pain w rad down left LE --- Additional Notes or Special Instructions: hx laminectomy CT lumbar spine without contrast Comparison: None provided Findings: Vertebral alignment is within normal limits. No acute fractures or dislocations. Moderate multilevel degenerative change with disc space narrowing, endplate sclerosis and marginal osteophyte formation. There is facet hypertrophy within the lower lumbar spine. There is severe central canal stenosis at L2-L3. Reference axial 56. There is moderately severe central canal stenosis at L3-L4, reference axial 73. Moderately severe central canal stenosis at L4-L5, reference axial 89. Retroperitoneum demonstrates atherosclerotic disease, severe. Impression: Moderately severe lumbar spondylosis with multilevel central canal stenosis. This document has been electronically signed by: Anmol Byers MD on 02/24/2025 10:42:57 External Record Review External record reviewed: Inpatient record Prescription Management I considered prescription management with: Pain Medication and Other (baclofen) patient states narcotics (oxycodone) have not helped her pain in the past. Chronic Conditions Patient?s care impacted by: Other (DVT, sciatica) Social Determinants Patient?s care significantly limited by Social Determinants of Health including: Other Social Determinant of Health Critical Care Time Critical Care Time Critical Care Time: No Discharge Plan Discharge Clinical Impression: Lumbar radiculopathy Patient Disposition: Home, Self-Care Instructions: Lumbar Radiculopathy (ED), Lower Back Exercises (ED) Additional Instructions: You were evaluated in the ED today for lower back/ left leg pain. You were blood work is reassuring. You were dehydrated. You were given a liter of fluids in the ED today. please make sure you are staying adequately hydrated. Your pain significantly improved after receiving IV Tylenol. The venous ultrasound of your left leg does not demonstrate acute clot. The CT scan of your lower back shows findings consistent with your previous MRI. As discussed, it is important to follow up with your neuro spine physician Dr. Maki to re-evaluate interventions. For now, I recommend tylenol at home. We will also trial baclofen (muscle relaxer). Take this at night as it may make you drowsy. Do not drive, drink alcohol, or operate machinery while taking it. Lidoderm patches are numbing patches. Apply to painful areas. Return to the Emergency Department if you experience worsening back pain, difficulty walking, fevers, numbness, tingling, bowel or bladder incontinence, or any other concerning symptoms. In the case of an emergency call 911. Prescriptions: New baclofen 5 mg tablet 2.5 mg PO Q8H PRN (Reason: muscle pain) Qty: 10 0RF lidocaine [Lidoderm] 5 % adhesive patch,medicated 1 patch topical DAILY Qty: 15 0RF Rx Instructions: leave on most painful area for up to 12 hrs No Action levothyroxine 75 mcg tablet 75 mcg PO BEDTIME Qty: 100 2RF apixaban 5 mg tablet 5 mg PO BID Qty: 180 3RF fenofibrate 54 mg tablet 54 mg PO BEDTIME Qty: 90 2RF lisinopril 20 mg tablet 20 mg PO BEDTIME Qty: 100 2RF Flonase Sensimist 27.5 mcg/actuation spray,suspension 1 spray intranasal DAILY Qty: 18.2 0RF Rx Instructions: into each nostril magnesium 250 mg Tablet 250 mg PO DAILY Eliquis 2.5 mg Tablet 2.5 mg PO BID Qty: 60 2RF esomeprazole magnesium [Nexium 24HR] 20 mg capsule,delayed release(DR/EC) 20 mg PO DAILY nitrofurantoin monohyd/m-cryst 100 mg capsule 100 mg PO Q12H 7 Days Qty: 14 0RF Rx Instructions: must administer with a meal/food Referrals: Hali Wilson PA-C [Primary Care Provider, Internal Medicine] Barrie Maki MD, PhD [Physician, Neuro Spine] Print Language: [place]
[2025-02-24 09:12] VITALS: BP 163/74; PULSE 80; RESP 19; TEMP 36.6; O2SAT 98
--- NOTE | 2025-02-24 09:14 | PC.NURSE ---
PAtient presents to ED c/o lef tpain pain rated 8/10 radiating down the left leg to the toes and into the low left back. +CMS +ROM patient uses cane for ambulation. HX DVT in left leg on eliquis. Negative red, swelling, warmth. Denies injury, long periods of sitting, SOB. Provider in to see patient . Plan of care on going
[2025-02-24 09:39] LABS: MANUAL DIFF FLAG NO
[2025-02-24 09:40] LABS: Hematocrit 42.1 % (37.0-47.0); Hemoglobin 14.3 g/dl (12.0-16.0); Imm Gran Abs Auto 0.01 X10*3/uL (0.00-0.03); Imm Gran Pct Auto 0.1 % (0.0-0.4); Lymphocytes Absolute Auto 1.9 X10*3/uL (1.2-4.9); Mean Corpuscular HGB Conc 34.0 g/dl (31.0-35.0); Mean Corpuscular Hemoglobin 31.6 pg (27.0-33.0); Mean Corpuscular Volume 92.9 fL (80.0-98.0); NRBC Abs Auto 0.000 X10*3/uL (0.0-0.012); NRBC Pct Auto 0.0 /100WBC (0.0-0.2); Platelet Count 166 X10*3/uL (160-400); Red Blood Count 4.53 X10*6/uL (4.20-5.50); White Blood Count 7.1 X10*3/uL (4.8-10.8)
[2025-02-24 09:50] LABS: INTERNATIONAL NORM RATIO 1.1 (0.9-1.1); Prothrombin Time 12.1 SEC (10.9-12.4)
[2025-02-24 09:53] LABS: Alanine Aminotransferase 17 U/L (0-31); Albumin Level 4.3 g/dL (3.5-5.0); Alkaline Phosphatase 57 U/L (39-117); Anion Gap 14 (12-20); Aspartate Amino Transferase 28 U/L (5-31); Blood Urea Nitrogen 37 mg/dL (9-16); Calcium 9.7 mg/dL (8.4-10.2); Carbon Dioxide 23 mmol/L (22-29); Chloride 108 mmol/L (96-108); Creatinine Clr Calc Pharmacy 33.7; Estimated Glomerular Filt Rate 31; Potassium 4.8 mmol/L (3.3-5.1); Sodium 140 mmol/L (135-145); Total Protein 8.2 g/dL (6.5-8.0)
[2025-02-24 12:35] VITALS: BP 163/74; PULSE 80; RESP 19; TEMP 36.6; O2SAT 98
== END 2025-02-24 12:35 | disposition home or self-care (01) ==
PROVIDERS: Physician Assistant Medical; Emergency Provider Emergency Medicine Emergency Medical Services
DX: M54.16 Radiculopathy, lumbar region (principal); M79.605 Pain in left leg; I10 Essential (primary) hypertension; E78.5 Hyperlipidemia, unspecified; I82.409 Acute embolism and thrombosis of unspecified deep veins of unspecified lower extremity; Z79.01 Long term (current) use of anticoagulants
CPT/HCPCS: 36415; 72131; 80053; 85025; 85610; 93971; 96361; 96374; 99284; J0131

== ENCOUNTER → 2025-02-24 09:36 | Outpatient (BNV) | payer MEDICARE, SELFPAY | PROVIDERS: Emergency Provider Emergency Medicine Emergency Medical Services; Visit Provider Radiology Vascular & Interventional Radiology | DX: M48.062 Spinal stenosis, lumbar region with neurogenic claudication (principal); R22.42 Localized swelling, mass and lump, left lower limb | CPT/HCPCS: 72131; 93971 ==

== ENCOUNTER 2025-03-05 14:40 | Outpatient (REF) | payer MEDICARE, SELFPAY ==
--- NOTE | ~2025-03-05 | XR_ITS ---
EXAMINATION: XR LUMBAR SPINE 4 OR MORE VIEWS HISTORY: Z98.890 - Other specified postprocedural states COMPARISON: Comparison is made with the prior examination dated 01/18/2024. FINDINGS: AP, and neutral, flexion, and extension lateral views of the lumbar spine are submitted. Osseous mineralization is normal. Five nonrib-bearing lumbar vertebral bodies are identified, maintaining normal height without evidence of fracture or spondylolisthesis. There is mild levoscoliosis. There is mild to moderate degenerative disc disease with disc space narrowing and osteophyte formation. There is no abnormal motion with flexion or extension. There is calcification of the abdominal aorta. XR/XR lumbar spine 4V min IMPRESSION: Mild levoscoliosis. Mild to moderate degenerative disc disease. No abnormal motion is seen with flexion or extension. Electronically signed by: Harvinder Villela MD 03/06/2025 08:01 AM EDT
== END 2025-03-05 14:41 | disposition home or self-care (01) ==
LOC: HO.HOSX 14:40
PROVIDERS: Visit Provider Physician Assistant
DX: Z47.89 Encounter for other orthopedic aftercare (principal); Z98.890 Other specified postprocedural states
CPT/HCPCS: 72110; 99212

== ENCOUNTER 2025-03-05 14:40 | Outpatient (AMB) | payer MEDICARE, SELFPAY ==
--- NOTE | 2025-03-05 15:02 | A.SPINEOV_ITS ---
Intake Visit Reasons: [facility] ED f/u Intake Note: Mrs. Portillo is here as an [facility] ED f/u. 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 Maki in April of last year. She reports that she had good resolution of her symptoms until about a month ago when she began experiencing fairly significant low back pain and return of the same shooting pain down her left lower extremity that she had prior to surgery. She reports that her pain intensity seems a little bit worse than it was prior to her last surgery, and is now accompanied by some left foot numbness that is intermittent and waxes/wanes throughout the day. She reports that her pain is worse with positional changes such as getting up from a seated position or attempting to ambulate to the bathroom in the middle of the night. She most recently was evaluated in our emergency department for this issue, and had a CT scan of the lumbar spine completed. Imaging: CT scan of the lumbar spine completed here at [facility] shows laminotomy defect at L3-4, L4-5. There is no significant new degeneration or instability noted however CT scan imaging is not ideal for identifying instability. Exam: The patient has full 5/5 strength of her bilateral lower extremities. She ambulates with the assistance of a 4 pronged cane, however she is able to get up onto the examination table independently without much issue. Her posterior incision site is closed and well healed, with no evidence of edema/swelling or deformity. (-) bilateral straight leg raise. Plan: Miranda seems to be suffering from a recurrence of her preoperative pain. I would like to send her for a set of dynamic lumbar spine x-rays to ensure that there is no new instability status post her lumbar decompression at L3-4, L4-5. If these are unremarkable, I will order a lumbar MRI to evaluate for continued or worsening nerve root compression despite previous surgical intervention. I will call her with the results of the MRI once it is read by Radiology. Nomi Maki MD,PhD [facility] Orders: Orders XR lumbar spine 4V min 03/05/25 Z98.890 - Other specified postprocedural states MR lumbar spine wo con 03/05/25 Z98.890 - Other specified postprocedural states Medications: Discontinued methocarbamol Discontinued Reason: Patient no longer taking 500 mg PO Q8H PRN 9 tabs 0RF muscle pain apixaban (Eliquis) Discontinued Reason: Patient no longer taking 2.5 mg PO BID 60 tabs 2RF Coding Level of Care Code New Pt Level 4 (97649) Diagnoses Status post lumbar spine surgery for decompression of spinal cord Z98.890
== END 2025-03-05 15:26 | disposition home or self-care (01) ==
LOC: HO.HNS 14:40
PROVIDERS: Visit Provider Physician Assistant
DX: Z98.890 Other specified postprocedural states (principal)
CPT/HCPCS: 99214

== ENCOUNTER → 2025-03-05 15:29 | Outpatient (BNV) | payer MEDICARE, SELFPAY | PROVIDERS: Visit Provider Radiology Diagnostic Radiology | DX: M51.360 Other intervertebral disc degeneration, lumbar region with discogenic back pain only (principal) | CPT/HCPCS: 72110 ==

== ENCOUNTER 2025-03-20 16:36 | Outpatient (REF) | payer MEDICARE, SELFPAY ==
--- NOTE | ~2025-03-20 | MR_ITS ---
EXAM: MRI Lumbar Spine without Contrast. TECHNIQUE: Multiplanar multisequence MR imaging was performed through the lumbar spine without contrast. INDICATION: Z98.890 - Other specified postprocedural states PRIOR: X-ray on March 05, 2025, MRI March 05, 2024 FINDINGS: 5 non-rib bearing lumbar segments on x-ray. Marrow and end-plates: There are no marrow replacing lesions. Alignment: Vertebral body height and alignment is preserved. Soft tissues: Benign simple cysts are present in the left greater than right kidney. Conus: The termination of conus medullaris is within normal limits at the level of L1-2. T12-L1: Circumferential broad-based disc bulge with focal left subarticular zone extrusion results in mild subarticular zone narrowing without nerve root compression. There is no spinal stenosis or foraminal narrowing. L1-L2: There is mild loss of disc height and disc desiccation with circumferential broad-based disc bulge and endplate osteophytes. There is mild facet degeneration. There is borderline mild spinal stenosis and mild lateral recess narrowing, greater right, similar to the prior exam. There is mild right foraminal narrowing without left foraminal narrowing, unchanged. L2-L3: There is disc desiccation with circumferential broad-based disc bulge. There is moderate facet degeneration and ligamentum flavum hypertrophy. There is a right foraminal and far lateral disc extrusion. There is moderate spinal stenosis, greater on the left. There is moderate right and mild left foraminal narrowing similar to the prior. L3-L4: There are postsurgical changes likely with microdiscectomy and resection of the labrum. There is mild to moderate spinal stenosis, improved from prior examination. There is mild to moderate bilateral foraminal narrowing, greater on the left, and similar to the prior. L4-L5: There are postsurgical changes with left hemilaminectomy and possible microdiscectomy. There is mild to moderate spinal stenosis, improved from the prior examination. There is subarticular zone narrowing, greater on the left. Mild bilateral foraminal narrowing is stable. L5-S1: There is circumferential broad-based disc bulge and mild focal left subarticular zone and foraminal extrusion. There is moderate facet degeneration with ligamentum flavum thickening. There is mild spinal stenosis and moderate right and severe left subarticular zone narrowing likely with encroachment of L5 nerve roots from the prior. There is mild bilateral foraminal narrowing, stable. MR/MR lumbar spine wo con IMPRESSION: T12-L1: There is mild subarticular zone narrowing without nerve root compression. L1-L2: . There is borderline mild spinal stenosis and mild lateral recess narrowing, greater right, similar to the prior exam L2-L3: There is moderate spinal stenosis, greater on the left. There is moderate right and mild left foraminal narrowing similar to the prior. L3-L4: There are postsurgical changes with mild to moderate spinal stenosis, improved from prior examination. There is mild to moderate bilateral foraminal narrowing, greater on the left, and similar to the prior. L4-L5: There are postsurgical changes with mild to moderate spinal stenosis, improved from the prior examination. There is subarticular zone narrowing, greater on the left, improved. L5-S1: There is mild spinal stenosis and moderate right and severe left subarticular zone narrowing likely with encroachment of L5 nerve roots, increased from the prior. Electronically signed by: Carlos Vazquez MD 03/20/2025 06:05 PM EDT
== END 2025-03-20 16:37 | disposition home or self-care (01) ==
LOC: HO.MRI 16:36
PROVIDERS: Visit Provider Physician Assistant
DX: Z98.890 Other specified postprocedural states (principal)
CPT/HCPCS: 72148

== ENCOUNTER → 2025-03-20 16:45 | Outpatient (BNV) | payer MEDICARE, SELFPAY | PROVIDERS: Visit Provider Radiology Diagnostic Radiology | DX: M48.061 Spinal stenosis, lumbar region without neurogenic claudication (principal) | CPT/HCPCS: 72148 ==

== ENCOUNTER 2025-04-09 06:54 | Outpatient (REF) | payer MEDICARE, SELFPAY ==
[2025-04-09 10:48] LABS: MANUAL DIFF FLAG NO
[2025-04-09 11:21] LABS: Hematocrit 41.1 % (37.0-47.0); Hemoglobin 13.4 g/dl (12.0-16.0); Imm Gran Abs Auto 0.01 X10*3/uL (0.00-0.03); Imm Gran Pct Auto 0.2 % (0.0-0.4); Lymphocytes Absolute Auto 2.6 X10*3/uL (1.2-4.9); Mean Corpuscular HGB Conc 32.6 g/dl (31.0-35.0); Mean Corpuscular Hemoglobin 31.0 pg (27.0-33.0); Mean Corpuscular Volume 95.1 fL (80.0-98.0); NRBC Abs Auto 0.000 X10*3/uL (0.0-0.012); NRBC Pct Auto 0.0 /100WBC (0.0-0.2); Platelet Count 164 X10*3/uL (160-400); Red Blood Count 4.32 X10*6/uL (4.20-5.50); White Blood Count 5.1 X10*3/uL (4.8-10.8)
[2025-04-09 12:10] LABS: Folate 6.7 ng/mL (> or = 4.0); Vitamin B12 223 pg/mL (200-900)
[2025-04-09 12:23] LABS: Alanine Aminotransferase 14 U/L (0-31); Albumin Level 3.9 g/dL (3.5-5.0); Alkaline Phosphatase 54 U/L (39-117); Anion Gap 11 (12-20); Aspartate Amino Transferase 23 U/L (5-31); Blood Urea Nitrogen 27 mg/dL (9-16); Calcium 9.3 mg/dL (8.4-10.2); Carbon Dioxide 27 mmol/L (22-29); Chloride 108 mmol/L (96-108); Cholesterol 209 mg/dL (<200); Estimated Glomerular Filt Rate 33; HDL Cholesterol 60 mg/dL (>40); Magnesium 2.1 mg/dL (1.6-2.6); Potassium 4.3 mmol/L (3.3-5.1); Sodium 142 mmol/L (135-145); Total Protein 7.5 g/dL (6.5-8.0); Triglycerides 104 mg/dL (<150)
== END 2025-04-09 06:55 | disposition home or self-care (01) ==
LOC: HO.HMGCLDS 06:54
DX: Z00.00 Encounter for general adult medical examination without abnormal findings (principal); I10 Essential (primary) hypertension; E03.9 Hypothyroidism, unspecified; R25.2 Cramp and spasm; E78.5 Hyperlipidemia, unspecified
CPT/HCPCS: 36415; 80053; 80061; 82306; 82607; 82746; 83735; 84443; 85025

== ENCOUNTER 2025-04-10 08:30 | Outpatient (REF) | payer MEDICARE, SELFPAY ==
[2025-04-10 13:22] LABS: Appearance Urine Clear; Glucose Urine UA Negative (Negative); PH 5.5 (5.0-9.0); Specific Gravity - Urine 1.010 (1.005-1.025); UMIC TRIGGER UACC YES
== END 2025-04-10 08:31 | disposition home or self-care (01) ==
LOC: HO.HMGCLNP 08:30
DX: N39.0 Urinary tract infection, site not specified (principal)
CPT/HCPCS: 81001

== ENCOUNTER 2025-04-22 11:16 | Outpatient (AMB) | payer MEDICARE, SELFPAY ==
[2025-04-22 11:33] VITALS: BP 168/70; PULSE 63; RESP 18; TEMP 35.9; O2SAT 96; BMI 27.9
--- NOTE | 2025-04-22 11:33 | MHC.PC.OV ---
Vital Signs 04/22/25 11:33 Height 5 ft 8 in Blood Pressure Location Lt brachial Position Sitting Respiration 18 Pulse Source Pulse Oximeter Temp Source Temporal Artery Scan Oxygen Delivery Method Room Air Intake Visit Reasons: VISHNU Karriner/YOLANDA Certified Medication Aide Required: No Accompanied by: Self / Same As Patient Allergies Tmcmdkw-TII-VsY Reductase Inhibitor (Yefeirt-Izm-Xfu Reductase Inhibitor) Allergy (Unknown, Verified 04/22/25 11:34) myalgia Tobacco use date assessed: 04/22/25 Last assessed Fall Risk: 04/22/25 Dental Screening Dental Screen Date: 04/22/25 [facility] Medical History DVT (deep venous thrombosis) GERD (gastroesophageal reflux disease) Numbness On anticoagulant therapy Post-menopausal Hyperlipidemia Hypertension Surgical History Hx of tonsillectomy H/O colonoscopy History of inguinal hernia repair Family History Father CAD (coronary artery disease) Past heart attack Substance use disorder Mother Diabetes Sister Mitral valve prolapse Substance use disorder Social History Household Members: Children Housing: House Are you a primary care attendant to a significant other at home: No Do you presently have visiting nurse or other home services: No Alcohol intake: current Alcohol intake frequency: a few times a month Alcohol type: hard liquor Patient Tobacco Use Status: Former Tobacco user Tobacco use type: Cigarette Years Smoked: 1990 quit e-Cigarette/Vaping Use: Never Used Second Hand Smoke Exposure: No service: No Current occupational status: retired Cognitive needs: Yes (cane) Hearing needs: No Vision needs: Yes (Reading glasses) Questionnaire Thrive Questionnaire Date Thrive assessed: 11/15/24 LUCIA-7 AMB Questionnaire LUCIA-7 Date LUCIA - 7 assessed: 02/13/24 Source: Developed by Drs. Harvinder Linton, Patrica Avilez, Jorge Dixon and colleagues, with an educational martha from [employer]. Physical exam (Primary Care) Tobacco/Smoking Status: Tobacco use Status Tobacco use date assessed 11/15/24 11/15/24 09:45 Patient Tobacco Use Status Former Tobacco user 11/15/24 09:42 Tobacco use type Cigarette 11/15/24 09:42 e-Cigarette/Vaping Use Never Used 11/15/24 09:42 Thrive Assessment: Date of Thrive Assessment Date Thrive assessed 11/15/24 11/15/24 09:45 Coding
--- NOTE | 2025-04-22 11:38 | A.OFFVIS_ITS ---
Intake Vital Signs 04/22/25 11:33 04/22/25 11:47 Height 5 ft 8 in Weight 183 lb 9 oz BMI 27.9 27.9 BP 168/70 H Blood Pressure Location Lt brachial Position Sitting Respiration 18 Pulse 63 Pulse Source Pulse Oximeter Temp 96.6 F L Temp Source Temporal Artery Scan Pulse Oximetry (%) 96 Oxygen Delivery Method Room Air Intake Visit Reasons: VISHNU Lainer/AWV Bill Hiker Required: No Accompanied by: Self / Same As Patient Allergies Hhljqky-CKX-KmF Reductase Inhibitor (Bvmjdir-Wyo-Ycw Reductase Inhibitor) Allergy (Unknown, Verified 04/22/25 11:50) myalgia Medication List - Last Reconciled 04/22/25 by RUDI Johnston cholecalciferol (vitamin D3) 25 mcg PO DAILY esomeprazole magnesium (Nexium 24HR) 20 mg PO DAILY fenofibrate 54 mg PO BEDTIME fluticasone furoate 27.5 mcg/actuation (Flonase Sensimist) 1 spray intranasal DAILY levothyroxine 75 mcg PO BEDTIME lisinopril 20 mg PO BEDTIME HPI VISHNU Lainer/AWV HPI Details Kiana of life reviewed with the patient. In the of life planning discussed. Patient reports that she has a MOLST form and her wishes in her cabinet at home and will make a copy and drop it off so it could be bloated to her file. Reports that her son is her HCP. The patient is a 75-year-old female presenting for annual Medicare wellness visit Past medical history of HTN, HLD, hypothyroidism, DVT on Eliquis, spinal stenosis, sciatica. Per chart review the patient had a left-sided L3-4, L4-[address] Mckeon in April,. The patient was evaluated by neuro spine and it was concluded that she would not benefit from another surgical intervention at this time. And she was referred to pain management. Dentist: up to date Eye: up to date-cataract surgery next year Snellen: Right: Left: Corrected vision: [id number] having lasik many years ago STI screening: Colonoscopy: aged out Pap Smer: aged out mammogram: she wants to stop doing this since all her prior studies have been normal PHQ-9: Flu: no COVID: x 4 Tdap:declines Diet:regular Exercise:walking but limited due to her lumbar pain that is reading in her left leg The patient has a history of osteopenia, diagnosed in 2020, with recommendations to take calcium and vitamin D supplements to prevent progression to osteoporosis. She is currently adhering to this regimen. The patient reports degenerative changes in the lumbar spine, which have been present for several years. She experiences chronic pain in the left leg, occasionally affecting the right leg, and has been advised against surgery by her neurologist. She is scheduled for a pain management appointment in April. Hyperlipidemia has been a concern, with cholesterol levels fluctuating over time. The patient is allergic to statins, which limits treatment options, and is currently on fenofibrate. A new medication, ezetimibe, has been added to her regimen. The patient has a vitamin D deficiency and has been prescribed a high-dose supplement, which she started this month. She reports symptoms of a viral upper respiratory infection, including sneezing, rhinorrhea, and a mild cough, which began last week and is improving. Cataracts have been diagnosed, and she anticipates surgery next year. Preventative care includes colon cancer screening with [facility], and she has had a DEXA scan in 2020 showing osteopenia. The patient wants to hold off on re- doing Dexa Scan until she is seen by pain management. She want to get her pain under control first. HPI Comments History of Present Illness Details reviewed past medical history- yes reviewed surgical / hospitalization history- yes reviewed current medications- yes reviewed family history- yes home safety throw rugs? yes grab bars? yes raised toilet seat? yes working smoke detectors? yes activities of daily living difficulty bathing or showering? no difficulty dressing? no difficulty using the toilet?no difficulty getting in and out of bed?no difficulty walking? yes receives help from other person's with any of the above tasks? instrumental activities of daily living uses telephone - independently gets to place out of walking distance- yes go shopping for groceries- no-son is doing this due to pain in leg repairs own meals- yes does own minor home maintenance- yes does own laundry- yes does own housework-yes manages own money- yes currently takes medication- yes end of life planning discussed advanced directives- yes advanced directives on file? no discussed wishes expressed in advanced directives.yes fall risk have you had any falls with injuries in the past year? no have you had 2 or more falls in the past year? no fall risk assessment: yes PFSH Medical History DVT (deep venous thrombosis) GERD (gastroesophageal reflux disease) Numbness On anticoagulant therapy Post-menopausal Hyperlipidemia Hypertension Surgical History Hx of tonsillectomy H/O colonoscopy History of inguinal hernia repair Family History Father CAD (coronary artery disease) Past heart attack Substance use disorder Mother Diabetes Sister Mitral valve prolapse Substance use disorder Social History Household Members: Children Housing: House Are you a primary career services director to a significant other at home: No Do you presently have visiting nurse or other home services: No Alcohol intake: current Alcohol intake frequency: a few times a month Alcohol type: hard liquor Patient Tobacco Use Status: Former Tobacco user Tobacco use type: Cigarette Years Smoked: 1990 quit e-Cigarette/Vaping Use: Never Used Second Hand Smoke Exposure: No service: No Current occupational status: retired Cognitive needs: Yes (cane) Hearing needs: No Vision needs: Yes (Reading glasses) Questionnaire Medicare Wellness Checkup What is your age?: 80 or older What gender do you identify with?: female During the past 4 weeks, how much have you been bothered by emotional problems such as feeling anxious, depressed, irritable, sad or downhearted, and blue?: not at all During the past 4 weeks, has your physical & emotional health limited your social activities with family, friends, neighbors, or groups?: moderately During the past 4 weeks, how much bodily pain have you generally had?: moderate pain During the past 4 weeks, was someone available to help you if you needed & wanted help?: yes, as much as I wanted During the past 4 weeks, what was the hardest physical activity you could do for at least 2 minutes?: moderate Can you get to places out of walking distance without help? (For eg., can you travel alone on buses, taxis or drive your car?): Yes Can you go shopping for groceries or clothes without someone's help?: Yes Can you prepare your own meals?: Yes Can you do your housework without help?: Yes Because of any health problems, do you need the help of another person with your personal care needs such as eating, bathing, dressing or getting around the house?: No Can you handle your own money without help?: Yes During the past 4 weeks, how would you rate your health in general?: good During the past 4 weeks how have things been going for you?: good & bad parts about equal Are you having difficulties driving your car?: no Do you always fasten your seat belt when you are in a car?: yes, usually During past 4 weeks, have you been bothered by the following: never: Sexual problems?, Trouble eating well?, Teeth or denture problems? and Problems using the telephone? and sometimes: Falling or dizzy when standing up and Tiredness or fatigue? Have you fallen 2 or more times in the past year?: No Are you afraid of falling?: No Are you a smoker?: no During the past 4 weeks, how many drinks of wine, beer, or other alcoholic beverages did you have?: no alcohol at all Do you exercise for about 20 minutes 3 or more times a week?: yes, some of the time Have you been given information to help with the following?: no: Hazards in your house that might hurt you? and no: Keeping track of your medications? How often do you have trouble taking medicines the way you have been told to take them?: I always take medicine as prescribed How confident are you that you can control & manage most of your health problems?: very confident What is your race?: White Mini Mental State Exam (MMSE) Orientation What is the (year) (season) (date) (day) (month)?: year, season, date, day and month Where are we (state) (county) (town or city) (hospital) (floor)?: state, county, town or city, hospital/clinic and floor Score Score: 10 Activity of Daily Living Bathing - sponge bath, tub bath or shower: receives no assistance (gets in/out by self, if usual bathing means Dressing - getting clothes from closets & drawers, including inner/outer garments & fasteners.: gets clothes & gets completely dressed without help Toileting - going to the 'toilet room' for urine/bowel elimination & cleaning self/arranging clothes: goes to toilet room, cleans self, arranges clothes without help Transfer: moves in & out of bed and chair without help (may use support object) Continence: controls urination/bowel movements completely by self Feeding: feeds self without help Total Score: 0 Information obtained from: patient Using telephone: independent Traveling: independent Shopping: needs assistance (due to leg pain, her son helps out with the shopping) Preparing meals: independent Housework: independent Taking medicine: independent Managing money: independent PHQ-9 Over the last 2 weeks, how often have you been bothered by any of the following problems? 1. Little interest or pleasure in doing things: not at all 2. Feeling down, depressed, or hopeless: not at all 3. Trouble falling or staying asleep, or sleeping too much: several days 4. Feeling tired or having little energy: several days 5. Poor appetite or overeating: not at all 6. Feeling bad about yourself - or that you are a failure or have let yourself or your family down: not at all 7. Trouble concentrating on things, such as reading the newspaper or watching television: not at all 8. Moving or speaking so slowly that other people could have noticed. Or the opposite - being so fidgety or restless that you have been moving around a lot more than usual: not at all 9. Thoughts that you would be better off or of hurting yourself in some way: not at all Total score: 2 Depression Screening Interpretation: Negative Depression Screening Done: Yes Source: Developed by Drs. Harvinder Linton, Patrica Avilez, Jorge Dixon and colleagues, with an educational martha from [employer]. Review of Systems Const Denies headache(s) Eyes Denies loss of vision ENT Denies vertigo, Denies dizziness, Denies headache(s), Denies sore throat and Reports other (sneezing-improving) Card Denies chest pain, Denies leg edema and Denies lightheadedness Resp Reports cough (improving), Denies hemoptysis and Denies wheezing GI Denies abdominal pain, Denies melena, Denies constipation, Denies diarrhea and Denies vomiting Denies urinary frequency, Denies dysuria and Denies urinary urgency Musc Reports back pain, Denies arthralgias, Denies joint swelling, Denies numbness, Reports radiating pain into limb (Mostly left leg-every once in a while the right leg as well) and Denies tingling Skin/Breast Denies lesions and Denies rash Neuro Denies behavioral changes, Denies vertigo, Denies dizziness, Denies headache(s), Denies loss of vision, Denies memory loss, Denies numbness and Denies tingling Psych Denies anxiety, Denies behavioral changes, Denies depression, Denies memory loss and Denies panic attacks Antoni/Lymph Denies easy bleeding and Denies easy bruising Aller/Immun Denies wheezing Physical Exam Vital Signs: Last Vital Signs Temp 96.6 F L 04/22/25 11:33 Pulse 63 04/22/25 11:33 Resp 18 04/22/25 11:33 BP 168/70 H 04/22/25 11:33 Pulse Ox 96 04/22/25 11:33 Oxygen Delivery Method Room Air 04/22/25 11:33 BMI result Body Mass Index 27.9 Const Other: IPPE/AWV: Balance Romberg Yes . Tandem walk no. unable due to back and radiculopathy down left leg. Walk and Turn Yes . Rise from sit to stand Yes . Vision Corrective lens [id number] surgery in the past, plans for cataract surgery in the future Vision screen pass Hearing Whisper test pass . Urinary incont. no. EKG Not clinically necessary. Results Reviewed Results Reviewed: Laboratory Tests 04/09/25 04/10/25 06:57 08:30 WBC 5.1 RBC 4.32 Hgb 13.4 Hct 41.1 MCV 95.1 MCH 31.0 MCHC 32.6 RDW 13.1 Plt Count 164 MPV 10.9 Sodium 142 Potassium 4.3 Chloride 108 Carbon Dioxide 27 Anion Gap 11 L BUN 27 H Creatinine 1.52 H Estimated GFR 33 Random Glucose 85 Calcium 9.3 Magnesium 2.1 Total Bilirubin 0.4 AST 23 ALT 14 Alkaline Phosphatase 54 Total Protein 7.5 Albumin 3.9 Triglycerides 104 Cholesterol 209 H LDL Cholesterol, Calc 129 H HDL Cholesterol 60 Vitamin B12 223 25-OH Vitamin D Total 16.4 L Folate 6.7 TSH 0.87 Urine Color Yellow Urine Appearance Clear Urine pH 5.5 Ur Specific [place] 1.010 Urine Protein Negative Urine Glucose (UA) Negative Urine Ketones Negative Urine Blood Negative Urine Nitrite Negative Ur Leukocyte Esterase Trace H Urine RBC 0-2 Urine WBC 0-5 Ur Squamous Epith Cells 3-5 Urine Bacteria None Seen Hyaline Casts 0-2 Assessment & Plan Assessment & Plan (1) Encounter for initial annual wellness visit (AWV) in Medicare patient: Code(s): Z00.00 - Encounter for general adult medical examination without abnormal findings Plan: Preventative guidelines and recent labs reviewed with the patient (2) Status post lumbar spine surgery for decompression of spinal cord: Code(s): Z98.890 - Other specified postprocedural states Plan: The patient had a left-sided L3-4, L4-[address] decomp[address] completed [address] Dr[address] Nehemiah napier in April,. The patient was evaluated by neuro spine and it was concluded that she would not benefit from another surgical intervention at this time. And she was referred to pain management (3) GERD (gastroesophageal reflux disease): Code(s): K21.9 - Gastro-esophageal reflux disease without esophagitis Qualifiers: Esophagitis presence: esophagitis presence not specified Qualified Code(s): K21.9 - Gastro-esophageal reflux disease without esophagitis Plan: Do not eat meals or drink carbonated beverages within 3 hr of bedtime Decrease the amount of fried, fatty, and spicy foods to decrease gastric acid production Raise the head of the bed using 4 to 6-inch blocks, especially if nocturnal symptoms are present Lose weight if indicated; avoid tight-fitting clothing, especially around the waist Avoid foods that relax the Lower esophageal sphincter (chocolate, peppermint, high-fat foods etc.,) Continue Nexium 24HR 20 mg daily (4) Hypothyroidism: Code(s): E03.9 - Hypothyroidism, unspecified Qualifiers: Hypothyroidism type: unspecified Qualified Code(s): E03.9 - Hypothyroidism, unspecified Plan: Euthyroidism Continue levothyroxine 75 mcg daily We will repeat labs in 4 months (5) Left leg DVT: Code(s): I82.402 - Acute embolism and thrombosis of unspecified deep veins of left lower extremity Qualifiers: Chronicity: unspecified Affected thrombotic vein of extremity: unspecified vein of extremity Qualified Code(s): I82.402 - Acute embolism and thrombosis of unspecified deep veins of left lower extremity Plan: History of DVT in the left leg that resolved. The patient was taken off her apixaban by Hematology. Follow up with Hematology as scheduled (6) Hyperlipidemia: Code(s): E78.5 - Hyperlipidemia, unspecified Qualifiers: Hyperlipidemia type: unspecified Qualified Code(s): E78.5 - Hyperlipidemia, unspecified Plan: Triglycerides 104, total cholesterol 209, LDL 129, HDL 60. Reinforced low- cholesterol diet and activity as tolerated. The patient wants to know what else she could do to lower her cholesterol. The patient is currently on fenofibrate and has been prescribed ezetimibe to manage cholesterol levels, given her allergy to statins. We will repeat lipid panel in 4 months (7) Hypertension: Code(s): I10 - Essential (primary) hypertension Qualifiers: Hypertension type: unspecified Qualified Code(s): I10 - Essential (primary) hypertension Plan: The patient blood pressure is 168/70, per patient, she is in a lot of pain but does not want to take any pain medication. She has a appointment with pain management coming up and she is hoping they could fix the problem. Reinforced low-salt in her diet and adequate hydration. Continue lisinopril 20 mg daily (8) Upper respiratory infection, viral: Code(s): J06.9 - Acute upper respiratory infection, unspecified Plan: The patient is advised to manage symptoms conservatively as the infection is improving, with no need for antibiotics. (9) Cataract: Code(s): H26.9 - Unspecified cataract Qualifiers: Cataract type: unspecified Laterality: bilateral Qualified Code(s): H26.9 - Unspecified cataract Plan: The patient anticipates cataract surgery next year. (10) Vitamin D deficiency: Code(s): E55.9 - Vitamin D deficiency, unspecified Plan: Continue vitamin D3 25 mcg daily (11) Osteopenia: Code(s): M85.80 - Other specified disorders of bone density and structure, unspecified site Qualifiers: Osteopenia location: unspecified Qualified Code(s): M85.80 - Other specified disorders of bone density and structure, unspecified site Plan: The patient is advised to continue calcium and vitamin D supplementation to prevent progression to osteoporosis. DEXA scan in 2020. It is due to be repeated over the patient wants to hold off until she gets pain under control (12) Renal insufficiency: Code(s): N28.9 - Disorder of kidney and ureter, unspecified Plan: The patient BUN 27, creatinine 1.52, and GFR 33. Increase fluid hydration and avoid NSAIDs. We will continue to monitor Orders: Orders Lipid Panel 4 Months E03.9 - Hypothyroidism, unspecified, E78.5 - Hyperlipidemia, unspecified, I10 - Essential (primary) hypertension, K21.9 - Gastro-esophageal reflux disease without esophagitis TSH reflex Free T4 4 Months E03.9 - Hypothyroidism, unspecified, E78.5 - Hyperlipidemia, unspecified, I10 - Essential (primary) hypertension, K21.9 - Gastro-esophageal reflux disease without esophagitis UA CC w/rflx Micro + Cult 4 Months E03.9 - Hypothyroidism, unspecified, E78.5 - Hyperlipidemia, unspecified, I10 - Essential (primary) hypertension, K21.9 - Gastro-esophageal reflux disease without esophagitis Comprehensive [place]. Panel Fast 4 Months E03.9 - Hypothyroidism, unspecified, E78.5 - Hyperlipidemia, unspecified, I10 - Essential (primary) hypertension, K21.9 - Gastro-esophageal reflux disease without esophagitis Vitamin D 25-OH Total 4 Months E03.9 - Hypothyroidism, unspecified, E78.5 - Hyperlipidemia, unspecified, I10 - Essential (primary) hypertension, K21.9 - Gastro-esophageal reflux disease without esophagitis Free T4 (Free Thyroxine) 4 Months E03.9 - Hypothyroidism, unspecified, E78.5 - Hyperlipidemia, unspecified, I10 - Essential (primary) hypertension, K21.9 - Gastro-esophageal reflux disease without esophagitis Medications: New ezetimibe 10 mg PO DAILY 30 tabs 3RF Quality Reporting (2019) Depression/Bipolar (159/160/161/177) PHQ-9: Total score: 2 Coding Level of Care Code Medicare Subsequent (G0439) Diagnoses Encounter for initial annual wellness visit (AWV) in Medicare patient Z00.00 Status post lumbar spine surgery for decompression of spinal cord Z98.890 Gastroesophageal reflux disease, unspecified whether esophagitis present K21.9 Esophagitis presence: esophagitis presence not specified Hypothyroidism, unspecified type E03.9 Hypothyroidism type: unspecified Deep vein thrombosis (DVT) of left lower extremity, unspecified chronicity, unspecified vein I82.402 Chronicity: unspecified Affected thrombotic vein of extremity: unspecified vein of extremity Hyperlipidemia, unspecified hyperlipidemia type E78.5 Hyperlipidemia type: unspecified Hypertension, unspecified type I10 Hypertension type: unspecified Upper respiratory infection, viral J06.9 Cataract of both eyes, unspecified cataract type H26.9 Cataract type: unspecified Laterality: bilateral Vitamin D deficiency E55.9 Osteopenia, unspecified location M85.80 Osteopenia location: unspecified Renal insufficiency N28.9 CPT Codes Advance Care Planning - Time spent: 1-15 minutes, on File ([id number]) Time Spent (min) 39 Advance Care Planning Advance Care Planning discussion: Exists, not on file Forms completed: None Time spent: 1-15 minutes, on File Actual minutes spent: 4
[2025-04-22 11:47] VITALS: BMI 27.9
== END 2025-04-22 12:34 | disposition home or self-care (01) ==
LOC: HO.HMCH 11:17
DX: Z00.00 Encounter for general adult medical examination without abnormal findings (principal); I82.402 Acute embolism and thrombosis of unspecified deep veins of left lower extremity; Z98.890 Other specified postprocedural states; K21.9 Gastro-esophageal reflux disease without esophagitis; E03.9 Hypothyroidism, unspecified; E78.5 Hyperlipidemia, unspecified; I10 Essential (primary) hypertension; J06.9 Acute upper respiratory infection, unspecified; H26.9 Unspecified cataract; E55.9 Vitamin D deficiency, unspecified; M85.80 Other specified disorders of bone density and structure, unspecified site; N28.9 Disorder of kidney and ureter, unspecified

== ENCOUNTER 2025-05-13 11:52 | Outpatient (AMB) | payer MEDICARE, SELFPAY ==
--- NOTE | 2025-05-13 11:57 | A.OFFVIS_ITS ---
Vital Signs 05/13/25 12:01 Height 5 ft 8 in Weight 185 lb BMI 28.1 BP 140/76 H Blood Pressure Location Lt brachial Position Sitting Respiration 16 Pulse 86 Pulse Source Pulse Oximeter Pulse Oximetry (%) 96 Oxygen Delivery Method Room Air Intake Visit Reasons: Low back pain Regional Psychiatric Director Required: No Allergies Qfbklnp-ZVU-ImZ Reductase Inhibitor (Zilptyz-Mzs-Ilp Reductase Inhibitor) Allergy (Unknown, Verified 05/13/25 12:03) myalgia Medication List - Last Reconciled 05/13/25 by Lacey Hagen LPN cholecalciferol (vitamin D3) 25 mcg PO DAILY esomeprazole magnesium (Nexium 24HR) 20 mg PO DAILY ezetimibe 10 mg PO DAILY fenofibrate 54 mg PO BEDTIME fluticasone furoate 27.5 mcg/actuation (Flonase Sensimist) 1 spray intranasal DAILY levothyroxine 75 mcg PO BEDTIME lisinopril 20 mg PO BEDTIME HPI HPI Low back pain: Details: History of Present Illness The patient is a 75-year-old female presenting with back and leg pain. The pain has persisted for six months, affecting the lower back and left thigh, with greater intensity at night. She underwent L3-4 and L4-5 decompression surgery last year, which initially alleviated her symptoms, but the pain has since returned and worsened. The back pain is the primary issue, with a burning sensation in the left thigh. The patient has not tried cortisone injections and opted for surgery due to a preference against injections. Additionally, the patient experiences insomnia, being unable to maintain sleep, and has arthritis contributing to her discomfort. Pain Description - Onset: Six months ago - Quality: Burning sensation in the left thigh - Location: Lower back and left thigh - Timing: Worse at night (8/10), better in the afternoon (4/10) - Exacerbating factors: Nighttime - Relieving factors: Afternoon Physical Exam - Appears afebrile. - Alert and oriented. - Mood and affect appropriate. Pain Management - Affect: Pain impacts sleep and daily activities - Analgesia: No current use of cortisone injections, pain levels vary from 4/10 to 8/10 - Activities of Daily Living: Difficulty with sleep and mobility, desires to walk upstairs again PFSH Medical History DVT (deep venous thrombosis) GERD (gastroesophageal reflux disease) Numbness On anticoagulant therapy Post-menopausal Hyperlipidemia Hypertension Surgical History Hx of tonsillectomy H/O colonoscopy History of inguinal hernia repair Family History Father CAD (coronary artery disease) Past heart attack Substance use disorder Mother Diabetes Sister Mitral valve prolapse Substance use disorder Social History Household Members: Children Housing: House Are you a primary resident care director to a significant other at home: No Do you presently have visiting nurse or other home services: No Alcohol intake: current Alcohol intake frequency: a few times a month Alcohol type: hard liquor Patient Tobacco Use Status: Former Tobacco user Tobacco use type: Cigarette Years Smoked: 1990 quit e-Cigarette/Vaping Use: Never Used Second Hand Smoke Exposure: No service: No Current occupational status: retired Cognitive needs: Yes (cane) Hearing needs: No Vision needs: Yes (Reading glasses) Physical Exam Vital Signs: Last Vital Signs Pulse 86 05/13/25 12:01 Resp 16 05/13/25 12:01 BP 140/76 H 05/13/25 12:01 Pulse Ox 96 05/13/25 12:01 Oxygen Delivery Method Room Air 05/13/25 12:01 BMI result Body Mass Index 28.1 Assessment & Plan Assessment & Plan (1) Status post lumbar spine surgery for decompression of spinal cord: Code(s): Z98.890 - Other specified postprocedural states Category: Surgical (2) Lumbar radiculopathy: Code(s): M54.16 - Radiculopathy, lumbar region Category: Medical Plan Plan Patient was informed and verbally consented to the use of an ambient scribe for clinic note documentation during this visit. 1. Back Pain - Consideration of left L3 and L4 TFESI as a treatment option - Recommendation to combine injections with physical therapy 2. Leg Pain - Addressed as part of the overall pain management strategy 3. Insomnia - No specific treatment discussed, but acknowledged as impacting daily life 4. Arthritis - Acknowledged as a contributing factor to discomfort Discussion Notes I discussed the option of cortisone injections with the patient, explaining that it could be beneficial given her history of back surgery and current pain levels. We also talked about the potential benefits of combining injections with physical therapy to enhance outcomes. The procedure will be conducted in our procedure area across the street from the main hospital. Patient Instructions - Consider cortisone injections as discussed. - Engage in physical therapy to support pain management. - Follow up with the clinic for further instructions and scheduling of procedures. Coding Level of Care Code New Pt Level 4 (68575) Diagnoses Status post lumbar spine surgery for decompression of spinal cord Z98.890 Lumbar radiculopathy M54.16
[2025-05-13 12:01] VITALS: BP 140/76; PULSE 86; RESP 16; O2SAT 96; BMI 28.1
== END 2025-05-13 12:57 | disposition home or self-care (01) ==
LOC: HO.PMC 11:52
PROVIDERS: Visit Provider Internal Medicine
DX: M54.16 Radiculopathy, lumbar region (principal); Z98.890 Other specified postprocedural states
CPT/HCPCS: 99204

== ENCOUNTER → 2025-05-13 11:52 | Outpatient (BNVA) | payer MEDICARE, SELFPAY | PROVIDERS: Visit Provider Internal Medicine | DX: M54.16 Radiculopathy, lumbar region (principal); Z98.890 Other specified postprocedural states | CPT/HCPCS: 99202 ==

== ENCOUNTER 2025-07-04 06:28 | Outpatient (REF) | payer MEDICARE, SELFPAY ==
--- NOTE | ~2025-07-04 | FL_ITS ---
EXAMINATION: FL GUIDANCE ONLY HISTORY: M48.00 - Spinal stenosis, site unspecified COMPARISON: None available. TECHNIQUE: Fluoroscopy time: 13 seconds. Cumulative Dose: 3.50 mGy. DAP: 382.10 mGycm2 Images: 5. FINDINGS: Fluoroscopic spot films of the lumbar spine demonstrate a needle and contrast material in place on the left. FL/FL guidance in treatment room IMPRESSION: Fluoroscopy during procedure. Please see procedure report for additional information. Electronically signed by: Harvinder Villela MD 07/04/2025 02:34 PM EST
== END 2025-07-04 06:29 | disposition home or self-care (01) ==
LOC: CF 06:28
PROVIDERS: Visit Provider Internal Medicine
DX: M54.16 Radiculopathy, lumbar region (principal)
CPT/HCPCS: 64483; J1100; J2003; Q9967

== ENCOUNTER 2025-07-04 09:11 | Outpatient (AMB) | payer MEDICARE, SELFPAY ==
[2025-07-04 09:21] VITALS: BP 138/72; PULSE 94; RESP 16; O2SAT 97
--- NOTE | 2025-07-04 09:21 | A.OFFVIS_ITS ---
Vital Signs 07/04/25 09:21 07/04/25 09:51 BP 138/72 136/78 Blood Pressure Location Lt brachial Lt brachial Position Sitting Sitting Respiration 16 16 Pulse 94 85 Pulse Source Pulse Oximeter Pulse Oximeter Pulse Oximetry (%) 97 97 Oxygen Delivery Method Room Air Room Air Intake Visit Reasons: Left L3-L4 TFESI/ ativan Crepe Maker Required: No Allergies Wyxkons-RBC-XlW Reductase Inhibitor (Hgarwlh-Dlk-Qgu Reductase Inhibitor) Allergy (Unknown, Verified 07/04/25 09:22) myalgia Medication List - Last Reconciled 07/04/25 by Lacey Hagen LPN cholecalciferol (vitamin D3) 25 mcg PO DAILY esomeprazole magnesium (Nexium 24HR) 20 mg PO DAILY ezetimibe 10 mg PO DAILY fenofibrate 54 mg PO BEDTIME fluticasone furoate 27.5 mcg/actuation (Flonase Sensimist) 1 spray intranasal DAILY levothyroxine 75 mcg PO BEDTIME lisinopril 20 mg PO BEDTIME HPI HPI Left L3-L4 TFESI/ ativan: Details: Patient presents for scheduled procedure. Denies any recent cough, cold, infection, fever or other significant changes in medical history since last office visit. [facility] Medical History DVT (deep venous thrombosis) GERD (gastroesophageal reflux disease) Numbness On anticoagulant therapy Post-menopausal Hyperlipidemia Hypertension Surgical History Hx of tonsillectomy H/O colonoscopy History of inguinal hernia repair Family History Father CAD (coronary artery disease) Past heart attack Substance use disorder Mother Diabetes Sister Mitral valve prolapse Substance use disorder Social History Household Members: Children Housing: House Are you a primary healthcare sales representative to a significant other at home: No Do you presently have visiting nurse or other home services: No Alcohol intake: current Alcohol intake frequency: a few times a month Alcohol type: hard liquor Patient Tobacco Use Status: Former Tobacco user Tobacco use type: Cigarette Years Smoked: 1990 quit e-Cigarette/Vaping Use: Never Used Second Hand Smoke Exposure: No service: No Current occupational status: retired Cognitive needs: Yes (cane) Hearing needs: No Vision needs: Yes (Reading glasses) Physical Exam Vital Signs: Last Vital Signs Pulse 85 07/04/25 09:51 Resp 16 07/04/25 09:51 BP 136/78 07/04/25 09:51 Pulse Ox 97 07/04/25 09:51 Oxygen Delivery Method Room Air 07/04/25 09:51 Office Procedures Details: Transforaminal epidural steroid injection, Left L3/4 After obtaining written consent, pre-procedure blood pressure and heart rate were stable and recorded in the nursing record. The patient was placed in the prone position on the fluoroscopy table. The lumbosacral area was prepped with chloraprep, allowed to dry and draped in sterile fashion. Using fluoroscopy, the skin overlying our target was anesthetized with 0.5% lidocaine. A 22 gauge 3.5 inch spinal needle was advanced to the safe triangle in the upper pole of the left L3 foramen. No paresthesias were elicited with needle placement and aspiration was negative for blood and CSF. Correct needle position was confirmed with approximately 1 ml contrast dye (Omnipaque 180 mg/ml) injected under real-time fluoroscopy. No evidence of vascular or intrathecal uptake was seen and there was both epidural and peripheral spread of the contrast agent. 10 mg dexamethasone plus 1 ml containing 0.5% lidocaine was slowly injected. The needle was flushed and removed. The skin was cleansed and a sterile bandages were applied. The patient tolerated the procedure well and no complications were encountered. Following the procedure the patient's vital signs were stable. The patient was discharged home in good condition with post-procedural instructions. Time Out: Immediately prior to the procedure, the following was verbally confirmed that there is a signed consent form and that the correct patient, planned procedure, site and side are consistent with documentation and that necessary equipment and/or blood products are available prior to the start of the case. Complications: none EBL: <5 cc 95578 - Lumbar/Sacral Procedure code (CPT) selection complete Assessment & Plan Assessment & Plan (1) Lumbar radiculopathy: Code(s): M54.16 - Radiculopathy, lumbar region Category: Medical Plan Patient is status post left L3 TFESI. Patient tolerated procedure well and was discharged home in stable condition with discharge instructions. All questions were answered. We will follow-up via telephone or in clinic to assess response to therapy. A follow-up appointment was made during today's visit. Orders: Orders FL guidance in treatment room Today M48.00 - Spinal stenosis, site unspecified Coding Level of Care Code Procedure Only Diagnoses Lumbar radiculopathy M54.16 CPT Codes Transforaminal Epidural Steroid Inj - TESI 3: 21251 - Lumbar/Sacral ([id number])
[2025-07-04 09:51] VITALS: BP 136/78; PULSE 85; RESP 16; O2SAT 97
== END 2025-07-04 09:52 | disposition home or self-care (01) ==
LOC: HO.PMCPRC 09:11
PROVIDERS: Visit Provider Internal Medicine
DX: M54.16 Radiculopathy, lumbar region (principal)
CPT/HCPCS: 64483